=== PATIENT | male | born 1940 | race Caucasian/White ===

== ENCOUNTER → 2023-08-24 08:26 | Outpatient (REF) | payer MEDICARE, OTHER, SELFPAY ==
[2023-08-24 08:52] LABS: % Basophils 0.8 % (0-2); % Eosinophils 3.1 % (0-6); % Immature Granulocytes 0.5 % (0-0.5); % Lymphocytes 16.1 % (20.5-51.1); % Monocytes 13.1 % (1.7-9.3); % Neutrophils 66.4 % (42.2-75.2); Absolute Basophils 0.1 10^3/uL (0-0.2); Absolute Eosinophils 0.4 10^3/uL (0-0.7); Absolute Immature Granulocytes 0.1 10^3/uL (0-0.05); Absolute Lymphocytes 1.8 10^3/uL (1.2-3.4); Absolute Monocytes 1.5 10^3/uL (0.1-0.6); Absolute Neutrophils 7.6 10^3/uL (1.4-6.5); Hematocrit 30.8 % (39.0-52.0); Hemoglobin 10.4 g/dL (13.0-18.0); Mean Corp Hgb Conc. 33.8 g/dL (33.0-37.0); Mean Corpuscular Hgb 35.6 pg (27.0-31.0); Mean Corpuscular Volume 105.5 fL (80.0-94.0); Nucleated Red Blood Cells % 0 % (-); Platelet Count 224 10^3/uL (130-400); Red Blood Cell Count 2.92 10^6/uL (4.70-6.10); Red Cell Dist. Width 17.4 % (11.5-14.5); White Blood Cell Count 11.4 10^3/uL (4.8-10.8)
[2023-08-24 09:20] LABS: ALT (SGPT) 25 U/L (0-50); AST (SGOT) 24 U/L (17-59); Albumin 3.5 g/dl (3.5-5.0); Alkaline Phosphatase 245 U/L (38-126); Blood Urea Nitrogen 14 mg/dl (9-20); Calcium 9.1 mg/dl (8.4-10.2); Carbon Dioxide 30 mmol/L (22-30); Chloride 103 mmol/L (98-107); Glucose 137 mg/dl (70-99); Potassium 3.9 mmol/L (3.5-5.1); Sodium 139 mmol/L (135-145); Total Bilirubin 0.7 mg/dl (0.2-1.3); Total Protein 6.1 g/dl (6.3-8.2); eGFR > 60.00
== END ==
LOC: REG 08:26
PROVIDERS: ATTENDING PHYSICIAN Internal Medicine Hematology & Oncology; FAMILY PHYSICIAN Internal Medicine
DX: C25.2 Malignant neoplasm of tail of pancreas (principal)
CPT/HCPCS: 36415; 80053; 85025

== ENCOUNTER → 2023-09-02 08:05 | Outpatient (REF) | payer MEDICARE, OTHER, SELFPAY ==
[2023-09-02 08:23] LABS: % Basophils 0.7 % (0-2); % Eosinophils 1.9 % (0-6); % Immature Granulocytes 0.5 % (0-0.5); % Lymphocytes 24.3 % (20.5-51.1); % Monocytes 13.5 % (1.7-9.3); % Neutrophils 59.1 % (42.2-75.2); Absolute Basophils 0.1 10^3/uL (0-0.2); Absolute Eosinophils 0.2 10^3/uL (0-0.7); Absolute Immature Granulocytes 0.1 10^3/uL (0-0.05); Absolute Lymphocytes 2.4 10^3/uL (1.2-3.4); Absolute Monocytes 1.3 10^3/uL (0.1-0.6); Absolute Neutrophils 5.8 10^3/uL (1.4-6.5); Hematocrit 31.4 % (39.0-52.0); Hemoglobin 10.5 g/dL (13.0-18.0); Mean Corp Hgb Conc. 33.4 g/dL (33.0-37.0); Mean Corpuscular Hgb 34.4 pg (27.0-31.0); Mean Platelet Volume 9.9 fL (7.4-10.4); Nucleated Red Blood Cells % 0 % (-); Platelet Count 347 10^3/uL (130-400); Red Blood Cell Count 3.05 10^6/uL (4.70-6.10); Red Cell Dist. Width 16.7 % (11.5-14.5); White Blood Cell Count 9.9 10^3/uL (4.8-10.8)
[2023-09-02 09:15] LABS: ALT (SGPT) 22 U/L (0-50); AST (SGOT) 35 U/L (17-59); Albumin 3.5 g/dl (3.5-5.0); Alkaline Phosphatase 228 U/L (38-126); Blood Urea Nitrogen 12 mg/dl (9-20); Carbon Dioxide 26 mmol/L (22-30); Chloride 106 mmol/L (98-107); Glucose 131 mg/dl (70-99); Potassium 4.6 mmol/L (3.5-5.1); Sodium 137 mmol/L (135-145); Total Bilirubin 0.7 mg/dl (0.2-1.3); Total Protein 6.2 g/dl (6.3-8.2); eGFR > 60.00
== END ==
LOC: REG 08:05
PROVIDERS: ATTENDING PHYSICIAN Internal Medicine Hematology & Oncology
DX: C25.2 Malignant neoplasm of tail of pancreas (principal)
CPT/HCPCS: 36415; 80053; 85025

== ENCOUNTER → 2023-09-16 09:29 | Outpatient (REF) | payer MEDICARE, OTHER, SELFPAY ==
[2023-09-16 10:18] LABS: % Basophils 0.6 % (0-2); % Eosinophils 0.8 % (0-6); % Immature Granulocytes 4.5 % (0-0.5); % Lymphocytes 12.7 % (20.5-51.1); % Monocytes 15.4 % (1.7-9.3); Absolute Basophils 0.2 10^3/uL (0-0.2); Absolute Eosinophils 0.2 10^3/uL (0-0.7); Absolute Immature Granulocytes 1.3 10^3/uL (0-0.05); Absolute Lymphocytes 3.7 10^3/uL (1.2-3.4); Absolute Monocytes 4.5 10^3/uL (0.1-0.6); Absolute Neutrophils 19.4 10^3/uL (1.4-6.5); Hematocrit 30.2 % (39.0-52.0); Hemoglobin 10.3 g/dL (13.0-18.0); Mean Corp Hgb Conc. 34.1 g/dL (33.0-37.0); Mean Corpuscular Hgb 35.3 pg (27.0-31.0); Mean Corpuscular Volume 103.4 fL (80.0-94.0); Mean Platelet Volume 11.9 fL (7.4-10.4); Nucleated Red Blood Cells % 0.7 % (-); Platelet Count 185 10^3/uL (130-400); Red Blood Cell Count 2.92 10^6/uL (4.70-6.10); Red Cell Dist. Width 17.3 % (11.5-14.5); White Blood Cell Count 29.4 10^3/uL (4.8-10.8)
[2023-09-16 10:55] LABS: ALT (SGPT) 23 U/L (0-50); AST (SGOT) 35 U/L (17-59); Albumin 3.9 g/dl (3.5-5.0); Alkaline Phosphatase 284 U/L (38-126); Blood Urea Nitrogen 8 mg/dl (9-20); Calcium 9.3 mg/dl (8.4-10.2); Carbon Dioxide 29 mmol/L (22-30); Chloride 103 mmol/L (98-107); Glucose 103 mg/dl (70-99); Potassium 4.3 mmol/L (3.5-5.1); Sodium 140 mmol/L (135-145); Total Bilirubin 0.3 mg/dl (0.2-1.3); Total Protein 6.7 g/dl (6.3-8.2); eGFR > 60.00
== END ==
LOC: REG 09:29
PROVIDERS: ATTENDING PHYSICIAN Internal Medicine Hematology & Oncology; FAMILY PHYSICIAN Internal Medicine
DX: C25.2 Malignant neoplasm of tail of pancreas (principal)
CPT/HCPCS: 36415; 80053; 85025

== ENCOUNTER → 2023-09-19 15:56 | Outpatient (REF) | payer MEDICARE, OTHER, SELFPAY ==
[2023-09-22 12:25] LABS: CA 19-9 22 U/mL (<=35)
== END ==
LOC: OIDL 15:56
PROVIDERS: ATTENDING PHYSICIAN Internal Medicine Hematology & Oncology
DX: C25.2 Malignant neoplasm of tail of pancreas (principal)
CPT/HCPCS: 86301

== ENCOUNTER → 2023-10-15 12:47 | Outpatient (REF) | payer MEDICARE, OTHER, SELFPAY | LOC: RAD 12:47 | PROVIDERS: ATTENDING PHYSICIAN Internal Medicine Hematology & Oncology; FAMILY PHYSICIAN Internal Medicine | DX: C25.2 Malignant neoplasm of tail of pancreas (principal); R53.83 Other fatigue | CPT/HCPCS: 71260; 74177; Q9967 ==

== ENCOUNTER → 2024-01-07 09:15 | Outpatient (REF) | payer MEDICARE, OTHER, SELFPAY ==
[2024-01-07 09:52] LABS: % Basophils 0.6 % (0-2); % Eosinophils 7.9 % (0-6); % Immature Granulocytes 0.2 % (0-0.5); % Lymphocytes 22.7 % (20.5-51.1); % Neutrophils 55.6 % (42.2-75.2); Absolute Basophils 0.1 10^3/uL (0-0.2); Absolute Eosinophils 0.6 10^3/uL (0-0.7); Absolute Lymphocytes 1.8 10^3/uL (1.2-3.4); Absolute Monocytes 1.1 10^3/uL (0.1-0.6); Absolute Neutrophils 4.5 10^3/uL (1.4-6.5); Hematocrit 33.9 % (39.0-52.0); Mean Corp Hgb Conc. 32.4 g/dL (33.0-37.0); Mean Corpuscular Hgb 32.4 pg (27.0-31.0); Mean Platelet Volume 9.8 fL (7.4-10.4); Nucleated Red Blood Cells % 0 % (-); Platelet Count 360 10^3/uL (130-400); Red Blood Cell Count 3.39 10^6/uL (4.70-6.10); Red Cell Dist. Width 12.8 % (11.5-14.5); White Blood Cell Count 8.1 10^3/uL (4.8-10.8)
[2024-01-07 10:26] LABS: ALT (SGPT) 15 U/L (0-50); AST (SGOT) 28 U/L (17-59); Albumin 4.2 g/dl (3.5-5.0); Alkaline Phosphatase 157 U/L (38-126); Blood Urea Nitrogen 18 mg/dl (9-20); Calcium 9.7 mg/dl (8.4-10.2); Carbon Dioxide 26 mmol/L (22-30); Chloride 106 mmol/L (98-107); Glucose 144 mg/dl (70-99); Potassium 4.7 mmol/L (3.5-5.1); Sodium 141 mmol/L (135-145); Total Bilirubin 0.7 mg/dl (0.2-1.3); Total Protein 7.2 g/dl (6.3-8.2); eGFR > 60.00
[2024-01-08 16:52] LABS: CA 19-9 162 U/mL (<=35)
== END ==
LOC: REG 09:15
PROVIDERS: ATTENDING PHYSICIAN Internal Medicine Hematology & Oncology; FAMILY PHYSICIAN Internal Medicine
DX: C25.2 Malignant neoplasm of tail of pancreas (principal); R53.83 Other fatigue
CPT/HCPCS: 36415; 80053; 85025; 86301

== ENCOUNTER → 2024-01-13 08:15 | Outpatient (REF) | payer MEDICARE, OTHER, SELFPAY | LOC: RAD 08:15 | PROVIDERS: ATTENDING PHYSICIAN Internal Medicine Hematology & Oncology; FAMILY PHYSICIAN Internal Medicine | DX: C25.2 Malignant neoplasm of tail of pancreas (principal); R53.83 Other fatigue | CPT/HCPCS: 71260; 74177; Q9967 ==

== ENCOUNTER 2024-02-07 13:20 | Inpatient (IN) | payer MEDICARE, OTHER, SELFPAY ==
[2024-02-07] VITALS (8 sets, daily range): BP systolic 109–143; BP diastolic 47–73
--- NOTE | 2024-02-07 07:15 | ED.GENMED ---
History of Present Illness
General
Chief Complaint: Abdominal Pain
Source: patient
Exam Limitations: none
Time Seen by Provider: 02/07/24 07:14
Nursing documentation reviewed up to this point in time: agreed with
History of Present Illness
History of Present Illness:
83-year-old male with history of HLD, pancreatic cancer dx 12/2022 with pancreatic tail, last chemotherapy 09/13/[address] [facility] [address] Lopez presents stating for past 2 weeks had pain across mid abdomen, worse past 2 days, last night 'terrible
pain.' Now pain /10. Took Zofran and Pepcid w no relief. Denies vomiting, diarrhea, constipation. Having usual soft BM's last one 2 days ago. Denies CP, SOB. Denies fever/chills.
Saw Dr. Lopez 4 days ago and 'my cancer levels were up (CA19 22 in September and now 162). Dr. Lopez wants to 'observe' and pt is to have upper endoscopy w Dr. He but first available is Nov and they are in process of trying to get that moved up.
Is on day 12 of Amoxicillin for tooth infection (in process of getting caps) Tooth infection is improved.
Past History
Past History
ED Past Medical History: Cancer (Pancreatic), HTN, Hypercholesterolemia and Hypothyroidism
ED Past Surgical History: Other (Pancreatic tail resection)
Social History
Tobacco: Non-smoker
Alcohol: None
Personal:
Living: with family
Employment: Retired
Review of Systems
Review of Systems
Allergies reviewed?: Yes
All Other Systems: ROS reviewed and negative except as documented in HPI and ROS
Constitutional: Denies fever or chills
Respiratory: Denies trouble breathing
Cardiac: Denies chest pain
ABD/GI: Reports abdominal pain and nausea; Denies vomiting, diarrhea, constipated, bloody stools or black stools
: Denies dysuria or difficulty voiding
Musculoskeletal: Reports no symptoms
Skin: Reports no symptoms
Neurological: Reports no symptoms
Phy Exam
Physical Exam
Physical Exam:
GENERAL: No acute distress. A&Ox3. Very pleasant gentleman
CONSTITUTIONAL: Afebrile.
EYES: clear, conjunctivae normal
ENMT: moist mucus membranes, Pharynx nl
RESPIRATORY: Regular respirations, nonlabored, lungs clear.
CARDIOVASCULAR: Regular rate and rhythm, no murmurs, no rubs.
GI: Soft, tender generally, nondistended, normal BS
MUSCULOSKELETAL: Moves with ease. Well perfused.
SKIN: Warm, dry, pale. Port upper right chest wall
PSYCH: Normal mood and affect. Well kept, interactive and appropriate
NEUROLOGIC: Awake, alert and oriented. No focal neurological deficits
Course
Orders/Labs/Results
Orders:
Orders
02/07/24 Breakfast
NPO
Allow oral meds: No
Allow clear liquids: Sips of Clears
NPO with Ice Chips: Yes
02/07/24 07:33
CT Abd/pel W Iv And Oral Contr Urgent
Comment:
Reason For Exam: gen abd pain, hx pancreatic ca w resection tail
Iohexol [Omnipaque] See Protocol PO NOW STA
02/07/24 07:34
0.9% Sodium Chloride 1000 ml [Nss] 1,000 ml IV BOLUS
Morphine Sulfate 2 mg IV NOW STA
Ondansetron Injectable [Zofran] 4 mg IV NOW STA
02/07/24 07:54
Complete Blood Count/With Diff Urgent
Comprehensive Metabolic Panel Urgent
Lipase Urgent
02/07/24 11:39
Morphine Sulfate 2 mg IV NOW STA
Ondansetron Injectable [Zofran] 4 mg IV NOW STA
02/07/24 13:08
Admit/Transfer Patient As Directed
Co-Sign Provider:
Level of Care: Inpatient admission
Assign to:: Medical/Surgical
Physician / Group: Sheu
Diagnosis: Small Bowel Obstruction
Reason for Hospitalization: NPO/IVFs, Surgical consult
Expected length of stay greater than two midnights?: Yes
ELOS- Estimated Length of Stay in days: 3
I certify the patient meets the requirements for IP care: Yes
SURGICAL CONSULT Routine
Consulting Provider: Lavell Cantrell
Was physician already notified: Yes
02/07/24 13:09
Code Status As Directed
Resuscitation Status: Do not resuscitate
Reached after discussion with pt or family/Healthcare POA: Yes
DNR Bracelet Application ONCE
PRN Pain Medication Management As Directed
May give lesser potent ordered pain med per pt: Yes
preference::
Protocol:: Medication orders for pain may be administered in a
manner that supports deferring to patient preference
when the pt is:
- Requesting an ordered lesser potent pain medication.
Least to most potent pain medications are defined
as: acetaminophen < NSAID < tramadol < opioids
(morphine, oxycodone, hydromorphone).
- Requesting a lesser dose of the same medication IF
ORDERED.
- Requesting a less intrusive route of administration
if both routes are prescribed by the provider (PO <
IV).
02/07/24 15:03
0.9% Sodium Chloride 1000 ml [Nss] 1,000 ml IV 80 mls/hr
Acetaminophen 1000MG/100Ml [Ofirmev] 1,000 mg in 100 ml IV Q6HPRN
Acetaminophen IV Indication:: Ileus/Delayed Bowel Func.
Dextrose 50%-Water [Dextrose 50% Syringe] 12.5 grams IV [id number] PRN
Glucagon [GlucaGen] 1 mg IM PRN PRN
Morphine Sulfate 2 mg IV Q4HPRN PRN
Ondansetron Injectable [Zofran] 4 mg IV Q6HPRN PRN
02/07/24 15:03
Activity As Directed
Activity Level: Out of Bed-Early Mobility
With Assistance
Bedside Glucose Monitoring As Directed
Frequency: AC&HS
Additional Instructions:: Change to q6h if pt on TPN, tube feeding or not eating
I&O [Intake/ Output] As Directed
Frequency: q12h
Vital Signs As Directed
Frequency: Per unit guidelines
Weight As Directed
Frequency: Daily
DX Deep Vein Thrombosis Video Routine
02/07/24 16:30
Insulin Aspart Corrective Low [Novolog Flexpen-Low Resistance] See Protocol SC AC
02/07/24 18:00
Enoxaparin Sodium [Lovenox] 40 mg SC QPM
02/08/24 06:00
Basic Metabolic Panel IN AM
Complete Blood Count/No Diff IN AM
Glycohemoglobin (HgbA1c) IN AM
Magnesium IN AM
TSH Reflex To Free T4 IN AM
CR Abdomen - 1 View IN AM
Comment:
Reason For Exam: abd pain; follow-up oral contrast from CT scan
Abnormal Lab Results
02/07/24
07:54
WBC 12.3 H 10^3/uL
(4.8-10.8)
RBC 3.91 L 10^6/uL
(4.70-6.10)
Hgb 12.7 L g/dL
(13.0-18.0)
Hct 37.7 L %
(39.0-52.0)
MCV 96.4 H fL
(80.0-94.0)
MCH 32.5 H pg
(27.0-31.0)
Plt Count 434 H 10^3/uL
(130-400)
Absolute Neuts (auto) 8.8 H 10^3/uL
(1.4-6.5)
Absolute Monos (auto) 1.1 H 10^3/uL
(0.1-0.6)
Lymphocytes % 14.2 L %
(20.5-51.1)
Glucose 231 H mg/dl
(70-99)
Alkaline Phosphatase 174 H U/L
(38-126)
02/07/24 07:54
02/07/24 07:54
Vital Signs
Initial and Last Documented VS:
Initial Vital Signs
Temp Pulse Resp BP Pulse Ox
98.2 F 72 16 142/73 99
02/07/24 06:32 02/07/24 06:32 02/07/24 06:32 02/07/24 06:32 02/07/24 06:32
Last Documented Vital Signs
Temp Pulse Resp BP Pulse Ox
98.2 F 52 12 109/47 98
02/07/24 06:32 02/07/24 14:45 02/07/24 14:45 02/07/24 14:26 02/07/24 14:45
MDM/Problems Addressed
Differential Diagnosis Includes:
metastatic disease, obstruction, GI upset from Amoxicillin
MDM/Problems Addressed:
83-year-old male with history of HLD, pancreatic cancer dx 12/2022 with pancreatic tail, last chemotherapy 09/13/[address] [facility] [address] Lopez presents stating for past 2 weeks had pain across mid abdomen, worse past 2 days, last night 'terrible
pain.' Now pain 9/10. Took Zofran and Pepcid w no relief. Denies vomiting, diarrhea, constipation. Having usual soft BM's last one 2 days ago. Denies CP, SOB. Denies fever/chills.
Saw Dr. Lopez 4 days ago and 'my cancer levels were up (CA19 22 in September and now 162). Dr. Lopez wants to 'observe' and pt is to have upper endoscopy w Dr. He but first available is Nov and they are in process of trying to get that moved up.
Is on day 12 of Amoxicillin for tooth infection (in process of getting caps) Tooth infection is improved.
NAD, Afebrile
8:00 AM
CBC: WBC 12.3
CMP: BS 231 (most likely r/t stress reaction) otherwise no clinically significant abnormality
Lipase WNL
11:15 AM:
CAT scan abdomen pelvis with p.o. and IV contrast: Radiology report read: IMPRESSION:
Small bowel obstruction with transition point in the mid abdomen posterior to the umbilicus.
Postoperative changes of distal pancreatectomy and splenectomy which are not cynically changed in appearance from prior.
Mildly distended urinary bladder.
In to reevaluate patient. Stable. Discussed CT results and need for hospitalization.
He states he had good pain relief after the morphine, he states pain is coming back and would like more pain medicine. Ordered.
Hospitalist notified of admission.
*Critical Care Note
Total Time (30-74mins, 75-104mins- exclusive of procedures): Not Applicable
ED Attending Note
-
Portions of this chart may have been created with voice recognition software.� Occasional wrong word or��sound alike� substitutions may have occurred due to the inherent limitations of voice recognition software.
Discharge Plan
Departure
Patient Disposition: Admit
Date of Disposition: 02/07/24
Time of Disposition: 11:28
Admit to: Med/Surg
Presentation/result/management discussed w/ accepting MD/DO: Hospitalist
Condition: Fair
Discharge Problem:
Small bowel obstruction
Interventions
Interventions:
*Risk Screen - Suicide Last Done: 02/07/24 08:00
*General Assessment Last Done: 02/07/24 06:32
*Neglect/Abuse Screening Last Done: 02/07/24 15:00
ED- Fall Risk Assessment Last Done: 02/07/24 08:00
*ED COVID-19 Vaccine History Last Done: 02/07/24 08:00
*Nursing Disposition Last Done: 02/07/24 15:00
ZP-[id number]-[id number] Assessment Last Done: 02/07/24 08:00
Discharge Date and Time
Discharge Date/Time: 02/07/24 15:01
[2024-02-07] MEDS: NSS 1000 IV ×2 (07:55→15:50)
[2024-02-07] MEDS: ZOFRAN 4 MG IV ×3 (08:05→17:28)
[2024-02-07] MEDS: OMNIPAQUE 50 ML PO (08:06)
[2024-02-07] MEDS: MORPHINE SULFATE 2 MG IV ×4 (08:06→21:42)
[2024-02-07 08:15] LABS: % Basophils 0.4 % (0-2); % Eosinophils 4.3 % (0-6); % Immature Granulocytes 0.2 % (0-0.5); % Lymphocytes 14.2 % (20.5-51.1); % Monocytes 9.3 % (1.7-9.3); % Neutrophils 71.6 % (42.2-75.2); ALT (SGPT) 17 U/L (0-50); AST (SGOT) 27 U/L (17-59); Absolute Basophils 0.1 10^3/uL (0-0.2); Absolute Eosinophils 0.5 10^3/uL (0-0.7); Absolute Lymphocytes 1.7 10^3/uL (1.2-3.4); Absolute Monocytes 1.1 10^3/uL (0.1-0.6); Absolute Neutrophils 8.8 10^3/uL (1.4-6.5); Albumin 4.3 g/dl (3.5-5.0); Alkaline Phosphatase 174 U/L (38-126); Blood Urea Nitrogen 17 mg/dl (9-20); Carbon Dioxide 29 mmol/L (22-30); Chloride 101 mmol/L (98-107); Glucose 231 mg/dl (70-99); Hematocrit 37.7 % (39.0-52.0); Hemoglobin 12.7 g/dL (13.0-18.0); Lipase 75 U/L (23-300); Mean Corp Hgb Conc. 33.7 g/dL (33.0-37.0); Mean Corpuscular Hgb 32.5 pg (27.0-31.0); Mean Corpuscular Volume 96.4 fL (80.0-94.0); Mean Platelet Volume 9.4 fL (7.4-10.4); Nucleated Red Blood Cells % 0 % (-); Platelet Count 434 10^3/uL (130-400); Potassium 4.9 mmol/L (3.5-5.1); Red Blood Cell Count 3.91 10^6/uL (4.70-6.10); Sodium 137 mmol/L (135-145); Total Bilirubin 0.8 mg/dl (0.2-1.3); Total Protein 7.4 g/dl (6.3-8.2); White Blood Cell Count 12.3 10^3/uL (4.8-10.8); eGFR > 60.00
--- NOTE | 2024-02-07 12:36 | HPS.HSE ---
Addendum entered and electronically signed by Ottoniel Payne MD 02/07/24 17:21:
I saw and examined the patient.
The VEIN ACCESS TECHNICIAN or PA's note was reviewed and I agree with the note.
Comment:
83M DM HLD Hypothyroidism pancreatic Ca s/p pancreatic Tail resection Splenectomy p/w progressive abd pain constipation nausea last bowel movement [address] concerning for SBO. Patient comfortable pain well controlled after prn antinausea and
mpain medications given in ED. VSS
Physical Exam
General: No pallor, cyanosis, or jaundice.
HEENT: Throat clear. PERRLA Normocephalic atraumatic
NECK: Supple. No JVD Carotid Bruits
RESPIRATORY: Lungs clear to auscultation. No crackles wheezes stridor
CVS: S1, S2 normal. RRR. No murmur, rub or gallop.
ABDOMEN: Soft, non-tender. No distension. BS+/normal.
EXTREMITIES: No peripheral cyanosis or edema.
S[employer] HELPER: AOx3. 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
#SBO
#Diabetes
#Hyperlipidemia
#Hypothyroidism
Strict n.p.o.
IV fluid support
Pain medication
As needed antiemetics
Surgery eval appreciated
Sliding scale follow-up A1c
Original Note:
Family Physician
-
Family Physician: Mayito Silverio
Chief Complaint
-
Abdominal Pain
History of Present Illness
Patient is an 83 y/o male with a PMH of pancreatic cancer s/p pancreatic tail resection and splenectomy who reports to the ED for abdominal pain. He states the pain started about 2 weeks ago and has progressively worsened especially the last 2 days.
He describes the pain as a pressure that rates an 8/10. He denies taking Tylenol or Advil. He admits to abdominal bloating and nausea but denies vomiting. He tried taking Pepcid to no relief. He reports his last bowel movement was 2 days ago, which
is normal for him, but does states his bowel movements have been on the looser side. He admits to passing flatus. He denies diarrhea, chest pain, shortness of breath, fever, chills, and edema.
Medical History
Past Medical History
Past Medical History: Reports Other
Additional Past Medical History:
Diabetes Mellitus
Hyperlipidemia
Hypothyroidism
Pancreatic Cancer s/p Resection and Chemotherapy
Past Surgical History: Reports Other
Additional Past Surgical History:
Pancreatic Tail Resection
Splenectomy
Social History
Tobacco: Non-smoker
Alcohol: None
Family History
Family History: Not pertinent
Allergies / Home Medications
Allergies reflects when Allergies were last updated in [facility].
Home Medications with original date entered in [facility]
Allergy/Medication List:
Allergies
Allergy/AdvReac Type Severity Reaction Status Date / Time
No Known Allergies Allergy Verified 03/20/23 21:46
Home Medications
atorvastatin 40 mg tablet 40 mg PO QPM 01/07/23
finasteride 5 mg tablet 5 mg PO DAILY 01/07/23
latanoprost 0.005 % eye drops 1 drp BOTH EYES HS 01/07/23
levothyroxine 50 mcg tablet 50 mcg PO DAILY 01/07/23
docusate sodium 100 mg capsule (Colace) 100 mg PO Q48H 02/07/24
dorzolamide 22.3 mg-timolol 6.8 mg/mL eye drops (Cosopt) 1 drp BOTH EYES BID 02/07/24
famotidine 20 mg tablet (Pepcid) 20 mg PO DAILYPRN PRN gerd 02/07/24
metformin 500 mg tablet,extended release 24 hr 500 mg PO QPM 02/07/24
Review of Systems
-
A 12 point ROS was completed and negative except as noted: Yes
Constitutional: Denies Fever or Chills
Respiratory: Denies Cough or Trouble Breathing
Cardiac: Denies Chest Pain or Palpitations
Abdomen/GI: Reports See HPI
Physical Exam
Vital Signs
Vital Signs
Temp Pulse Resp BP Pulse Ox
98.2 F 54 13 122/57 98
02/07/24 06:32 02/07/24 12:33 02/07/24 12:33 02/07/24 12:28 02/07/24 12:33
Physical Exam
General: Comfortable and Conversant
HEENT: Anicteric and Moist mucous membranes
Respiratory: Clear and Non Labored Respirations
Cardiac: S1/S2 and Regular Rhythm
GI: Soft, Tender (Epigastric region without rebound or guarding), Distended (Mildly particularly in the central abdomen) and Other (Hypoactive bowels with occasional high pitch tinkling)
Rectal: Deferred by Provider
Musculoskeletal: No Clubbing, No Cyanosis and No Edema
Skin: Warm and Dry
Neuro: Awake, Alert, Oriented and Nonfocal/grossly intact
Psych: Calm
Laboratory Results
-
02/07/24 07:54
02/07/24 07:54
Laboratory Results
Total Bilirubin 0.8 mg/dl (0.2-1.3) 02/07/24 07:54
AST 27 U/L (17-59) 02/07/24 07:54
ALT 17 U/L (0-50) 02/07/24 07:54
Alkaline Phosphatase 174 U/L (38-126) H 02/07/24 07:54
Lipase 75 U/L (23-300) 02/07/24 07:54
CT Abd/Pelvis: Small bowel obstruction with transition point in the mid abdomen posterior to the umbilicus.
Data Reviewed
-
CT Scan: Report Reviewed by me
Lab Data: Labs Reviewed by me
Old Records: Reviewed
Impression/Plan
-
Small Bowel Obstruction
-Consult General Surgery
-Continue NPO/IVFs with low threshold to place NGT for worsening pain or vomiting
-Check Abd X-Ray in AM
Diabetes Mellitus
-Hold metformin
-Monitor sugars and continue coverage insulin
Hyperlipidemia
-Hold atorvastatin
Hypothyroidism
-Hold levothyroxine - If unable to resume in a few days then consider IV
Pancreatic Cancer s/p Resection and Chemotherapy
-CA 19-9 trending upwards
-Due for EUS later this year
DVT proph: Lovenox
Code Status: DNR
--- NOTE | 2024-02-07 16:21 | CON.GS ---
Consultation
-
Performing Provider: Óscar
Reason for Consultation: SBO
Medical History
-
Chief Complaint: abd distention/pain
History of Present Illness:
Patient is an 83-year-old male with a known history of pancreatic cancer status post distal pancreatectomy splenectomy January 2023 at [facility]. He subsequently underwent adjuvant chemotherapy which finished this past September. He is under the care of
Dr. Lopez with [facility]. He has been undergoing surveillance imaging which was unremarkable. However most recent CA 19-9 elevated at 162 on 01/07/2024 in comparison to prior 22 09/19/2023. Patient is aware of the recent elevation
in his tumor markers.
Patient states that he recovered well from his recent chemotherapy. Since September he has gained about 20 pounds with good appetite and nutritional tolerance. Over the past 2 weeks however he has been developing progressive abdominal discomfort and
distention which acutely deteriorated overnight to the point of having pain prompting emergency department evaluation and some mild nausea. There has been no vomiting. His bowels are moving regularly but he has not moved his bowels in 2 days now.
His stools are typically loose since having undergone distal pancreatectomy. No previous history of bowel obstructions.
Patient currently states that his abdominal pain/discomfort is well-controlled since getting 2 doses of morphine in the emergency department. His last dose was at 11:30 AM. He has not had any further nausea since around that time either as well.
He was able to tolerate the oral contrast for his CT imaging study and has not vomited.
Past Medical History
Past Medical History: Other (Pancreatic cancer, DM, hyperlipidemia, hypothyroidism)
Past Surgical History: Other (Laparotomy with distal pancreatectomy/splenectomy. Subsequent early postop relaparotomy for what sounds like was evacuation of a hematoma. Both of these surgeries were in January 2023.)
Social History
Tobacco: Non-Smoker
Alcohol: None
Personal:
Living: With Family
Employment: Retired
Family History
Family History: Reviewed & Noncontributory
Allergies / Home Medications
Allergy/AdvReac Type Severity Reaction Status Date / Time
No Known Allergies Allergy Verified 03/20/23 21:46
�Medication �Instructions �Recorded �Confirmed �Type
atorvastatin 40 mg tablet 40 mg PO QPM 01/07/23 02/07/24 History
finasteride 5 mg tablet 5 mg PO DAILY 01/07/23 02/07/24 History
latanoprost 0.005 % eye drops 1 drp BOTH EYES HS 01/07/23 02/07/24 History
levothyroxine 50 mcg tablet 50 mcg PO DAILY 01/07/23 02/07/24 History
docusate sodium 100 mg capsule 100 mg PO Q48H 02/07/24 02/07/24 History
(Colace)
dorzolamide 22.3 mg-timolol 6.8 1 drp BOTH EYES BID 02/07/24 02/07/24 History
mg/mL eye drops (Cosopt)
famotidine 20 mg tablet (Pepcid) 20 mg PO DAILYPRN PRN gerd 02/07/24 02/07/24 History
metformin 500 mg tablet,extended 500 mg PO QPM 02/07/24 02/07/24 History
release 24 hr
Review of Systems
-
History Source: Patient
All other systems: Negative unless noted
A 10 point review of systems was completed, and was negative except as per HPI.
Physical Exam
Vital Signs
Temp Pulse Resp BP Pulse Ox
97.5 F 55 18 122/60 97
02/07/24 15:00 02/07/24 15:00 02/07/24 15:00 02/07/24 15:00 02/07/24 15:00
02/06/24 02/07/24 02/08/24
06:59 06:59 06:59
Actual Weight 66.5 kg
Lab Results
02/07/24 07:54
02/07/24 07:54
WBC 12.3 10^3/uL (4.8-10.8) H 02/07/24 07:54
Hgb 12.7 g/dL (13.0-18.0) L 02/07/24 07:54
Hct 37.7 % (39.0-52.0) L 02/07/24 07:54
Plt Count 434 10^3/uL (130-400) H 02/07/24 07:54
Abs Immat Gran (auto) 0.0 10^3/uL (0-0.05) 02/07/24 07:54
Neutrophils % 71.6 % (42.2-75.2) 02/07/24 07:54
Physical Exam
General: Well Developed, Well Nourished, No Apparent Distress and Comfortable
HEENT: Normocephalic, Anicteric and Moist Mucous Membranes
Respiratory: Non Labored Respirations
GI: Soft, Tender (Mild tenderness central and upper abdomen. No rebound, no rigidity, no guarding.), Distended (Moderately distended but still soft. Tympany on percussion throughout. No percussion tenderness.) and Other (Midline laparotomy
surgical scar. No hernias)
Skin: Warm
Neuro: AO x 3
Psych: Calm
Data Reviewed
-
CT Scan: Image Personally Visualized and interpreted, Report Reviewed by me and Discussed with Patient
Labs: Labs Reviewed by me
Assessment / Plan
-
Assessment: 83-year old male history of pancreatic cancer status post distal pancreatectomy splenectomy presenting with small bowel obstruction; partial versus early high-grade.
Potential causes of obstruction could either be secondary to adhesions or malignancy in light of recent elevation of CA 19-9.
Radiographic imaging personally reviewed and interpreted. Transition point in mid to distal small bowel in the lower central abdomen. No radiographic findings suggestive of closed-loop obstruction, volvulus, internal hernia or immediate bowel
compromise/threat.
Given clinical stability recommend initial course of medical management.
Plan: N.p.o. except ice chips for comfort
IV fluid hydration
Analgesics and antiemetics as needed
Follow-up abdominal x-ray tomorrow a.m. to evaluate for possible progression of today's CT imaging oral contrast
May hold on NG tube given adequate pain control, nausea control and abdomen not tensely distended. However if it is to develop intractable pain, nausea vomiting then would recommend NG tube placement which I discussed with patient.
Surgical treatment plan and impression reviewed with patient. Any of his concerns or questions were addressed. We will continue to follow thank you.
[2024-02-07 16:43] LABS: Glucose - Point of Care 137 mg/dl (70-99)
[2024-02-07] MEDS: LOVENOX 40 MG SC (17:28)
[2024-02-07 23:57] LABS: Glucose - Point of Care 138 mg/dl (70-99)
[2024-02-08] MEDS: NSS 1000 IV ×2 (05:38→18:10)
[2024-02-08 06:53] LABS: Glucose - Point of Care 119 mg/dl (70-99)
[2024-02-08 07:00] VITALS: BP 118/44
--- NOTE | 2024-02-08 07:38 | W.PN.HOSP.TC ---
Today's Communication/Plan
-
diet as per surgery
pain control
antiemetic
IVF
Assessment / Plan
Assessment / Plan
Physical Exam
General: No pallor, cyanosis, or jaundice.
HEENT: Throat clear. PERRLA Normocephalic atraumatic
NECK: Supple. No JVD Carotid Bruits
RESPIRATORY: Lungs clear to auscultation. No crackles wheezes stridor
CVS: S1, S2 normal. RRR. No murmur, rub or gallop.
ABDOMEN: Soft, non-tender. No distension. BS+/normal.
EXTREMITIES: No peripheral cyanosis or edema.
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
83M DM HLD Hypothyroidism pancreatic Ca s/p pancreatic Tail resection Splenectomy p/w progressive abd pain constipation nausea last bowel movement [address] concerning for SBO. Patient comfortable pain well controlled after prn antinausea and
mpain medications given in ED. VSS
Small Bowel Obstruction
-Consult General Surgery appreciated
-Continue NPO/IVFs with low threshold to place NGT for worsening pain or vomiting
-Abd X-Ray appreciated
Diabetes Mellitus
-Hold metformin
-Monitor sugars and continue coverage insulin
Hyperlipidemia
-Hold atorvastatin
Hypothyroidism
-Hold levothyroxine - If unable to resume in a few days then consider IV
Pancreatic Cancer s/p Resection and Chemotherapy
-CA 19-9 trending upwards
-Due for EUS later this year
Oncology eval requested concern malignant SBO
DVT proph: Lovenox
Code Status: DNR
I spent a total of 50 minutes with the patient or on the floor. More than 50% of this time involved counseling and coordination of care.
Anticipated Discharge: > 48 hours
Subjective/Interval History
-
Date of Service: February 08, 2024
No acute distress reports feeling well. Denies pain or nausea.
Objective Data
-
Labs:
Laboratory Results
02/08/24
06:00
WBC Pending
Hgb Pending
Hct Pending
Plt Count Pending
Sodium Pending
Potassium Pending
Chloride Pending
Carbon Dioxide Pending
BUN Pending
Creatinine Pending
Glucose Pending
Calcium Pending
Vital Signs:
Vital Signs
Temp Pulse Resp BP Pulse Ox
97.6 F 73 16 117/58 97
02/07/24 23:00 02/07/24 23:00 02/07/24 23:00 02/07/24 23:00 02/07/24 23:00
I&O
02/07/24 02/08/24 02/09/24
06:59 06:59 06:59
Intake Total 1800 / 1800 1400 / 1400
Balance 1800 / 1800 1400 / 1400
[2024-02-08 08:14] LABS: Glycohemoglobin (HgbA1c) 7.6 % (4.0-5.6)
[2024-02-08 10:20] LABS: Hematocrit 37.8 % (39.0-52.0); Hemoglobin 12.7 g/dL (13.0-18.0); Mean Corp Hgb Conc. 33.6 g/dL (33.0-37.0); Mean Corpuscular Hgb 33.3 pg (27.0-31.0); Mean Corpuscular Volume 99.2 fL (80.0-94.0); Platelet Count 424 10^3/uL (130-400); Red Blood Cell Count 3.81 10^6/uL (4.70-6.10); Red Cell Dist. Width 13.2 % (11.5-14.5); White Blood Cell Count 10.7 10^3/uL (4.8-10.8)
[2024-02-08 10:44] LABS: Blood Urea Nitrogen 15 mg/dl (9-20); Calcium 9.5 mg/dl (8.4-10.2); Carbon Dioxide 29 mmol/L (22-30); Chloride 102 mmol/L (98-107); Glucose 147 mg/dl (70-99); Magnesium 2.1 mg/dl (1.6-2.3); Potassium 4.5 mmol/L (3.5-5.1); Sodium 137 mmol/L (135-145); eGFR > 60.00
[2024-02-08 11:13] LABS: TSH Reflex To Free T4 2.94 uIU/ml (0.47-4.68)
--- NOTE | 2024-02-08 12:36 | W.PN.GS2 ---
Today's Communication / Plan
-
-- Sips of clears for comfort, IVF
-- Repeat X-ray in AM
-- Oncology consult
Assessment / Plan
-
Patient is an 83 yo M p/w pSBO secondary to adhesions versus more likely malignancy
The natural history and pathophysiology of bowel obstructions was reviewed. We have specifically discussed the potential for a malignant bowel obstruction. Signs of radiographic improvement with passage of contrast into the RIGHT colon and
clinical improvement with less pain and distension. That being said x-ray demonstrates persistently dilated SB loops. Plan for continued bowel rest with repeat abdominal x-ray in the morning. We discussed the potential need for surgical
intervention either during this hospitalization or as an outpatient as this issue is unlikely to resolve itself on its own. Will also need to review case with Oncology if there is any role for further medical treatment.
-- No plans for surgical intervention at this time
-- Sips of clears for comfort, IVF
-- Repeat X-ray in AM
-- Oncology consult
Subjective Data
-
Date of Service: February 08, 2024
Feels improved, less pain and distention. No nausea or vomiting. No flatus or BM.
Objective Data
-
Intake and Output
02/07/24 02/08/24 02/09/24
06:59 06:59 06:59
Intake Total 1800 / 1800 1400 / 1400
Balance 1800 / 1800 1400 / 1400
Intake:
Oral fluids 800 / 800 60 / 60
IV fluids (Total) 1000 / 1000 1320 / 1320
NSS 1000 / 1000
IV piggybacks / 20
Other:
Number of approximated MODERATE 2
amounts of urine
Vital Signs
Temp Pulse Resp BP Pulse Ox
97.3 F 66 17 118/44 98
02/08/24 07:00 02/08/24 07:00 02/08/24 07:00 02/08/24 07:00 02/08/24 07:00
Lab Results
02/08/24 08:43
02/08/24 08:43
Calcium 9.5 mg/dl (8.4-10.2) 02/08/24 08:43
Magnesium 2.1 mg/dl (1.6-2.3) 02/08/24 08:43
Total Bilirubin 0.8 mg/dl (0.2-1.3) 02/07/24 07:54
AST 27 U/L (17-59) 02/07/24 07:54
ALT 17 U/L (0-50) 02/07/24 07:54
Alkaline Phosphatase 174 U/L (38-126) H 02/07/24 07:54
Total Protein 7.4 g/dl (6.3-8.2) 02/07/24 07:54
Albumin 4.3 g/dl (3.5-5.0) 02/07/24 07:54
Physical Exam
-
Gen: NAD
Abd: soft, NT, mild/moderate distension, non-peritoneal, prior incision well healed
[2024-02-08 12:50] LABS: Glucose - Point of Care 128 mg/dl (70-99)
[2024-02-08 15:00] VITALS: BP 133/79
--- NOTE | 2024-02-08 15:16 | CM ---
Reviewed chart, met with patient to obtain information for assessment. Patient stated that he lives with his in a single, two story home. There is one step to enter. Patient described himself as independent with his ADLs, personal care,
dressing and bathing. He ambulates at times with a s.p cane. 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
He denied any DME but the cane.
Patient stated that he had VN services through, [facility].
He has never been to a SNF.
Patient has a prescription plan and uses, [facility] in [place] for all of his medication.
He has done outpatient therapy but no SNF.
Patient's PCP is, Dr. Durham
Plan: Patient feels that he will be able to return home when when sable for discharge with his ,,
[2024-02-08 17:40] LABS: Glucose - Point of Care 137 mg/dl (70-99)
[2024-02-08] MEDS: NSS IV (17:40)
[2024-02-08] MEDS: LOVENOX 40 MG SC (18:09)
[2024-02-08 23:00] VITALS: BP 121/66
[2024-02-08 23:53] LABS: Glucose - Point of Care 109 mg/dl (70-99)
[2024-02-09] MEDS: ZOFRAN 4 MG IV ×2 (02:08→16:19)
[2024-02-09] MEDS: NSS 1000 IV ×3 (02:08→21:59)
[2024-02-09] MEDS: MORPHINE SULFATE 2 MG IV ×2 (02:08→16:20)
[2024-02-09 06:03] LABS: Glucose - Point of Care 132 mg/dl (70-99)
--- NOTE | 2024-02-09 07:18 | W.PN.HOSP.TC ---
Today's Communication/Plan
-
diet as per surgery
resume home oral meds
cont control
antiemetic prn
Assessment / Plan
Assessment / Plan
Physical Exam
General: No pallor, cyanosis, or jaundice.
HEENT: Throat clear. PERRLA Normocephalic atraumatic
NECK: Supple. No JVD Carotid Bruits
RESPIRATORY: Lungs clear to auscultation. No crackles wheezes stridor
CVS: S1, S2 normal. RRR. No murmur, rub or gallop.
ABDOMEN: Soft, non-tender. No distension. BS+/normal.
EXTREMITIES: No peripheral cyanosis or edema.
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
83M DM HLD Hypothyroidism pancreatic Ca s/p pancreatic Tail resection Splenectomy p/w progressive abd pain constipation nausea last bowel movement [address] concerning for SBO. Patient comfortable pain well controlled after prn antinausea and
mpain medications given in ED. VSS
Small Bowel Obstruction
-Consult General Surgery appreciated diet advanced to Clear liquid
-Abd X-Rays appreciated
Diabetes Mellitus
-resume metformin
-Monitor sugars and continue coverage insulin
Hyperlipidemia
-resume atorvastatin
Hypothyroidism
-resume synthroid
Pancreatic Cancer s/p Resection and Chemotherapy
-CA 19-9 trending upwards
-Due for EUS later this year
Oncology eval appreciated
DVT proph: Lovenox
Code Status: DNR
I spent a total of 50 minutes with the patient or on the floor. More than 50% of this time involved counseling and coordination of care.
Anticipated Discharge: 24 - 48 hours
Subjective/Interval History
-
Date of Service: February 09, 2024
No acute distress. Reports feeling well.
Objective Data
-
Labs:
Laboratory Results
02/09/24
07:07
WBC Pending
Hgb Pending
Hct Pending
Plt Count Pending
Sodium Pending
Potassium Pending
Chloride Pending
Carbon Dioxide Pending
BUN Pending
Creatinine Pending
Glucose Pending
Calcium Pending
Vital Signs:
Vital Signs
Temp Pulse Resp BP Pulse Ox
97.7 F 74 18 121/66 98
02/08/24 23:00 02/08/24 23:00 02/08/24 23:00 02/08/24 23:00 02/08/24 23:00
I&O
02/08/24 02/09/24 02/10/24
06:59 06:59 06:59
Intake Total 1800 / 1800 3290 / 3290
Balance 1800 / 1800 3290 / 3290
[2024-02-09 07:39] VITALS: BP 140/74
--- NOTE | 2024-02-09 09:05 | W.PN.GS2 ---
Today's Communication / Plan
-
-- Clears, supplement shakes
-- Oncology consult
Assessment / Plan
-
Patient is an 83 yo M p/w pSBO secondary to adhesions versus more likely malignancy
The natural history and pathophysiology of bowel obstructions was reviewed. We have specifically discussed the potential for a malignant bowel obstruction. Signs of radiographic improvement with passage of contrast into the RIGHT colon and
clinical improvement with less pain and distension. That being said x-ray demonstrates persistently dilated SB loops. We discussed the potential need for surgical intervention either during this hospitalization or as an outpatient as this issue is
unlikely to resolve itself on its own. Will also need to review case with Oncology if there is any role for further medical treatment.
Trial of clears
-- Clears, supplement shakes
-- Oncology consult
Subjective Data
-
Date of Service: February 09, 2024
Tolerated fulls, does report some mild nausea overnight treated with antinausea medication. Reports passing flatus and stools. Afebrile.
Objective Data
-
Intake and Output
02/08/24 02/09/24 02/10/24
06:59 06:59 06:59
Intake Total 1800 / 1800 3290 / 3290
Balance 1800 / 1800 3290 / 3290
Intake:
Oral fluids 800 / 800 1950 / 1950
IV fluids (Total) 1000 / 1000 1320 / 1320
NSS 1000 / 1000
IV piggybacks 20 / 20
Other:
Number of approximated MODERATE 3
amounts of urine
How many times incontinent 3
MODERATE amount urine
Vital Signs
Temp Pulse Resp BP Pulse Ox
97.7 F 73 16 140/74 98
02/09/24 07:39 02/09/24 07:39 02/09/24 07:39 02/09/24 07:39 02/09/24 07:39
Calcium 9.5 mg/dl (8.4-10.2) 02/08/24 08:43
Magnesium 2.1 mg/dl (1.6-2.3) 02/08/24 08:43
Total Bilirubin 0.8 mg/dl (0.2-1.3) 02/07/24 07:54
AST 27 U/L (17-59) 02/07/24 07:54
ALT 17 U/L (0-50) 02/07/24 07:54
Alkaline Phosphatase 174 U/L (38-126) H 02/07/24 07:54
Total Protein 7.4 g/dl (6.3-8.2) 02/07/24 07:54
Albumin 4.3 g/dl (3.5-5.0) 02/07/24 07:54
Physical Exam
-
Gen: NAD
Abd: soft, NT/ND, non-peritoneal
[2024-02-09 09:08] LABS: Blood Urea Nitrogen 11 mg/dl (9-20); Calcium 8.8 mg/dl (8.4-10.2); Carbon Dioxide 27 mmol/L (22-30); Chloride 105 mmol/L (98-107); Glucose 133 mg/dl (70-99); Magnesium 1.9 mg/dl (1.6-2.3); Phosphorus 3.4 mg/dl (2.5-4.5); Potassium 4.9 mmol/L (3.5-5.1); Sodium 136 mmol/L (135-145); eGFR > 60.00
[2024-02-09 09:12] LABS: Hematocrit 32.8 % (39.0-52.0); Hemoglobin 11.2 g/dL (13.0-18.0); Mean Corp Hgb Conc. 34.1 g/dL (33.0-37.0); Mean Corpuscular Hgb 32.3 pg (27.0-31.0); Mean Corpuscular Volume 94.5 fL (80.0-94.0); Mean Platelet Volume 9.7 fL (7.4-10.4); Platelet Count 409 10^3/uL (130-400); Red Blood Cell Count 3.47 10^6/uL (4.70-6.10); Red Cell Dist. Width 13.1 % (11.5-14.5); White Blood Cell Count 9.9 10^3/uL (4.8-10.8)
--- NOTE | 2024-02-09 09:41 | CON.ONC ---
Impression
Impression
SBO
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
Previous 5-fluorouracil based chemotherapy unable to tolerate irinotecan
Hypothyroid
Hyperlipidemia
Glaucoma/cataracts
Small pulmonary nodules of unclear significance
Plan
Plan
SBO with transition may represent metastatic implant Clinically improvement clinically improving with conservative measures
Serologic concern for relapsed disease with rising CA 19 9
There is no measurable disease in the pancreatic bed
Pulmonary nodules too small to biopsy
Continue to evaluate for definitive evidence of measurable recurrence or pathologic confirmation
Advance diet as per surgical management
Additional chemotherapy would be palliative
Patient History
History of Present Illness
Patient is an 83 y/o male with a PMH of pancreatic cancer s/p pancreatic tail resection and splenectomy with abdominal pain and SBO. He completed adjuvant FOLFOX chemotherapy in September 2023. Recent assessment failed to document clear evidence of
vaginal recurrence however his CA 19-9 has been rising which raises concern that his SBO may be associated with recurrent disease. His symptoms of abdominal discomfort started about 2 weeks ago and has progressively worsened especially the last few
days. He describes the pain as a pressure that rates an 8/10. He denies taking Tylenol or Advil. He admits to abdominal bloating and nausea but denies vomiting. He tried taking Pepcid to no relief. He reports his last bowel movement prior to
admission was 2 days before, which is normal for him, but does states his bowel movements have been on the looser side. He admits to passing flatus. He denies diarrhea, chest pain, shortness of breath, fever, chills, and edema.
Past-Medical/Surgical History
Past Medical History
Diabetes Mellitus
Hyperlipidemia
Hypothyroidism
Pancreatic Cancer s/p Resection and Chemotherapy
Past Surgical History
Pancreatic Tail Resection
Splenectomy
Social History
Tobacco: Non-smoker
Alcohol: None
Family History
Family History: Not pertinent
Patient Medication
�Medication �Instructions �Recorded �Confirmed �Last Taken �Type
atorvastatin 40 mg tablet 40 mg PO QPM 01/07/23 02/07/24 02/06/24 History
finasteride 5 mg tablet 5 mg PO DAILY 01/07/23 02/07/24 02/06/24 History
latanoprost 0.005 % eye drops 1 drp BOTH EYES HS 01/07/23 02/07/24 02/06/24 History
levothyroxine 50 mcg tablet 50 mcg PO DAILY 01/07/23 02/07/24 02/06/24 History
docusate sodium 100 mg capsule 100 mg PO Q48H 02/07/24 02/07/24 Unknown History
(Colace)
dorzolamide 22.3 mg-timolol 6.8 1 drp BOTH EYES BID 02/07/24 02/07/24 02/06/24 History
mg/mL eye drops (Cosopt)
famotidine 20 mg tablet (Pepcid) 20 mg PO DAILYPRN PRN gerd 02/07/24 02/07/24 02/07/24 History
metformin 500 mg tablet,extended 500 mg PO QPM 02/07/24 02/07/24 02/06/24 History
release 24 hr
Active Medications
Generic Name Dose Route Start Last Admin
Trade Name Freq PRN Reason Stop Dose Admin
Dextrose 12.5 grams 02/07/24 15:03
Dextrose 50% (0.5 Grams/Ml) 50 Ml Syringe IV 03/06/24 15:02
[id number] PRN
hypoglycemia
Protocol
Dorzolamide/Timolol 1 drop 02/09/24 09:00
Dorzolamide/Timolol (Ophth Soln.) 10 Ml Bottle BOTH EYES 03/08/24 08:59
BID TEE
Enoxaparin Sodium 40 mg 02/07/24 18:00 02/08/24 18:09
Enoxaparin Sodium 40 Mg/0.4 Ml Syringe SC 03/06/24 17:59 40 mg
QPM TEE Administration
Glucagon 1 mg 02/07/24 15:03
Glucagon 1 Mg Vial IM 03/06/24 15:02
PRN PRN
hypoglycemia
Protocol
Sodium Chloride 1,000 mls @ 110 mls/hr 02/07/24 15:03 02/09/24 02:08
Nss IV 1,000 mls
.Q9H6M TEE Administration
Insulin Aspart 0 units 02/09/24 07:30 02/09/24 08:17
Insulin Aspart Low Resistance 300 Units/3 Ml Pen.Injctr SC 03/08/24 07:29 Not Given
AC TEE
Protocol
Latanoprost 1 drop 02/09/24 22:00
Latanoprost 0.005% (Ophthalmic Solution) 2.5 Ml Bottle BOTH EYES 03/08/24 21:59
HS TEE
Morphine Sulfate 2 mg 02/07/24 15:03 02/09/24 02:08
Morphine 2 Mg/Ml Syringe IV 02/21/24 15:02 2 mg
Q4HPRN PRN Administration
moderate/severe pain
Ondansetron HCl 4 mg 02/07/24 15:03 02/09/24 02:08
Ondansetron 4 Mg/2 Ml Vial IV 03/06/24 15:02 4 mg
Q6HPRN PRN Administration
NAUSEA/VOMITING
Sodium Chloride 0 flush 02/07/24 16:00
Sodium Chloride 0.9% (Flush) Syringe IV 03/06/24 15:59
PER PROTOCOL TEE
Physical Exam
-
Physical Exam
General: Comfortable and Conversant
HEENT: Anicteric and Moist mucous membranes
Respiratory: Clear and Non Labored Respirations
Cardiac: S1/S2 and Regular Rhythm
GI: Soft, Tender, Distended
Musculoskeletal No Clubbing, No Cyanosis and No Edema
Skin: Warm and Dry
Neuro: Awake, Alert, Oriented and Nonfocal/grossly intact
Psych: Calm
Labs
Lab Results
WBC 9.9 10^3/uL (4.8-10.8) 02/09/24 07:07
RBC 3.47 10^6/uL (4.70-6.10) L 02/09/24 07:07
Hgb 11.2 g/dL (13.0-18.0) L 02/09/24 07:07
Hct 32.8 % (39.0-52.0) L 02/09/24 07:07
MCV 94.5 fL (80.0-94.0) H 02/09/24 07:07
MCH 32.3 pg (27.0-31.0) H 02/09/24 07:07
MCHC 34.1 g/dL (33.0-37.0) 02/09/24 07:07
RDW 13.1 % (11.5-14.5) 02/09/24 07:07
Plt Count 409 10^3/uL (130-400) H 02/09/24 07:07
MPV 9.7 fL (7.4-10.4) 02/09/24 07:07
Abs Immat Gran (auto) 0.0 10^3/uL (0-0.05) 02/07/24 07:54
Absolute Neuts (auto) 8.8 10^3/uL (1.4-6.5) H 02/07/24 07:54
Absolute Lymphs (auto) 1.7 10^3/uL (1.2-3.4) 02/07/24 07:54
Absolute Monos (auto) 1.1 10^3/uL (0.1-0.6) H 02/07/24 07:54
Absolute Eos (auto) 0.5 10^3/uL (0-0.7) 02/07/24 07:54
Absolute Basos (auto) 0.1 10^3/uL (0-0.2) 02/07/24 07:54
Immature Gran % 0.2 % (0-0.5) 02/07/24 07:54
Neutrophils % 71.6 % (42.2-75.2) 02/07/24 07:54
Lymphocytes % 14.2 % (20.5-51.1) L 02/07/24 07:54
Monocytes % 9.3 % (1.7-9.3) 02/07/24 07:54
Eosinophils % 4.3 % (0-6) 02/07/24 07:54
Basophils % 0.4 % (0-2) 02/07/24 07:54
Creatinine 0.9 mg/dL (0.7-1.3) 02/09/24 07:07
Vital Signs
Vital Signs
Temp Pulse Resp BP Pulse Ox
97.7 F 73 16 140/74 98
02/09/24 07:39 02/09/24 07:39 02/09/24 07:39 02/09/24 07:39 02/09/24 07:39
[2024-02-09] MEDS: COSOPT EYE DROPS 1 DROP BOTH EYES ×2 (09:47→21:06)
[2024-02-09 10:57] LABS: Glucose - Point of Care 130 mg/dl (70-99)
[2024-02-09 15:18] VITALS: BP 125/65
[2024-02-09 17:13] LABS: Glucose - Point of Care 116 mg/dl (70-99)
[2024-02-09] MEDS: LIPITOR 40 MG PO (17:38)
[2024-02-09] MEDS: GLUCOPHAGE XR EXTENDED RELEASE 500 MG PO (17:38)
[2024-02-09] MEDS: LOVENOX 40 MG SC (17:38)
[2024-02-09] MEDS: XALATAN OPHTHALMIC SOLUTION 1 DROP BOTH EYES (21:06)
[2024-02-09 21:25] LABS: Glucose - Point of Care 140 mg/dl (70-99)
[2024-02-09 23:18] VITALS: BP 119/66
[2024-02-10] MEDS: MORPHINE SULFATE 2 MG IV ×2 (01:22→20:43)
[2024-02-10] MEDS: ZOFRAN 4 MG IV ×2 (01:22→20:43)
[2024-02-10] MEDS: SYNTHROID 50 MCG PO (06:03)
[2024-02-10 06:47] LABS: Hematocrit 31.8 % (39.0-52.0); Hemoglobin 10.9 g/dL (13.0-18.0); Mean Corp Hgb Conc. 34.3 g/dL (33.0-37.0); Mean Corpuscular Hgb 32.3 pg (27.0-31.0); Mean Corpuscular Volume 94.4 fL (80.0-94.0); Mean Platelet Volume 9.6 fL (7.4-10.4); Platelet Count 371 10^3/uL (130-400); Red Blood Cell Count 3.37 10^6/uL (4.70-6.10); White Blood Cell Count 8.9 10^3/uL (4.8-10.8)
[2024-02-10 07:00] VITALS: BP 118/59
[2024-02-10] MEDS: NSS 1000 IV ×2 (07:03→16:08)
[2024-02-10 07:10] LABS: Blood Urea Nitrogen 11 mg/dl (9-20); Calcium 8.7 mg/dl (8.4-10.2); Carbon Dioxide 24 mmol/L (22-30); Chloride 107 mmol/L (98-107); Glucose 126 mg/dl (70-99); Magnesium 1.7 mg/dl (1.6-2.3); Phosphorus 3.3 mg/dl (2.5-4.5); Potassium 4.4 mmol/L (3.5-5.1); Sodium 135 mmol/L (135-145); eGFR > 60.00
[2024-02-10] MEDS: COSOPT EYE DROPS 1 DROP BOTH EYES ×2 (07:32→20:37)
[2024-02-10] MEDS: COLACE 100 MG PO (07:32)
[2024-02-10] MEDS: PROSCAR 5 MG PO (07:32)
[2024-02-10 08:03] LABS: Glucose - Point of Care 126 mg/dl (70-99)
--- NOTE | 2024-02-10 10:01 | W.PN.GS2 ---
Today's Communication / Plan
-
Continue with clears today.
Assessment / Plan
-
This is an 83-year-old male with a history of pancreatic adenocarcinoma status post open distal pancreatectomy and splenectomy with adjuvant FOLFOX chemotherapy in September 2023 who presented on 02/07/2024 with abdominal pain found to have his first
small bowel obstruction adhesive versus malignant in the setting of a rising CA 19-9. Patient is having some return of bowel function
The natural history and pathophysiology of bowel obstructions was reviewed. We have specifically discussed the potential for a malignant bowel obstruction. Signs of radiographic improvement with passage of contrast into the RIGHT colon and
clinical improvement with less pain and distension. That being said x-ray demonstrates persistently dilated SB loops. We discussed the potential need for surgical intervention either during this hospitalization or as an outpatient as this issue is
unlikely to resolve itself on its own. Will also need to review case with Oncology if there is any role for further medical treatment.
--Will continue nonoperative management of this bowel obstruction.
-- Clears, supplement shakes
-- Appreciate oncology recommendations.
General surgery will continue to follow
Time Spent
Total Time Spent with Patient (in minutes): 20
Subjective Data
-
Date of Service: February 10, 2024
Interval Events:
No acute events overnight. Slept well. Pain Controlled. Denies Nausea/Vomiting, +bowel function. Tolerating diet.
Objective Data
-
Intake and Output
02/09/24 02/10/24 02/11/24
06:59 06:59 06:59
Intake Total 3290 / 3290 510 / 510
Balance 3290 / 3290 510 / 510
Intake:
Oral fluids 1950 / 1949 510 / 510
IV fluids (Total) 1320 / 1320
IV piggybacks
Other:
Number of approximated MODERATE 3 4
amounts of urine
How many times incontinent 3
MODERATE amount urine
Vital Signs
Temp Pulse Resp BP Pulse Ox
97.7 F 78 17 118/59 97
02/10/24 07:00 02/10/24 07:00 02/10/24 07:00 02/10/24 07:00 02/10/24 07:00
Lab Results
02/10/24 06:15
02/10/24 06:15
Calcium 8.7 mg/dl (8.4-10.2) 02/10/24 06:15
Phosphorus 3.3 mg/dl (2.5-4.5) 02/10/24 06:15
Magnesium 1.7 mg/dl (1.6-2.3) 02/10/24 06:15
Total Bilirubin 0.8 mg/dl (0.2-1.3) 02/07/24 07:54
AST 27 U/L (17-59) 02/07/24 07:54
ALT 17 U/L (0-50) 02/07/24 07:54
Alkaline Phosphatase 174 U/L (38-126) H 02/07/24 07:54
Total Protein 7.4 g/dl (6.3-8.2) 02/07/24 07:54
Albumin 4.3 g/dl (3.5-5.0) 02/07/24 07:54
Physical Exam
-
GENERAL/NEURO: Awake, Alert, no distress
CHEST: Unlabored breathing on RA
ABDOMEN: Soft, Non-Tender, mildly distended
[2024-02-10 12:26] LABS: Glucose - Point of Care 124 mg/dl (70-99)
--- NOTE | 2024-02-10 12:40 | W.PN.HOSP.TC ---
Today's Communication/Plan
-
IVF
Gs recs
clears
oob
Assessment / Plan
Assessment / Plan
Physical Exam
General: No pallor, cyanosis, or jaundice.
HEENT: Throat clear. PERRLA Normocephalic atraumatic
NECK: Supple. No JVD Carotid Bruits
RESPIRATORY: Lungs clear to auscultation. No crackles wheezes stridor
CVS: S1, S2 normal. RRR. No murmur, rub or gallop.
ABDOMEN: Soft, non-tender. No distension. BS+/normal.
EXTREMITIES: No peripheral cyanosis or edema.
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
83M DM HLD Hypothyroidism pancreatic Ca s/p pancreatic Tail resection Splenectomy p/w progressive abd pain constipation nausea last bowel movement [address] concerning for SBO. Patient comfortable pain well controlled after prn antinausea and
mpain medications given in ED. VSS
Small Bowel Obstruction
-Consult General Surgery appreciated diet advanced to Clear liquid
-Abd X-Rays appreciated
-had bm earlier today
Diabetes Mellitus
-hold metformin as on only clears for now
-Monitor sugars and continue coverage insulin
Hyperlipidemia
-resume atorvastatin
Hypothyroidism
-resume synthroid
Pancreatic Cancer s/p Resection and Chemotherapy
-CA 19-9 trending upwards
-Due for EUS later this year
Oncology eval appreciated
DVT proph: Lovenox
Code Status: DNR
Anticipated Discharge: > 48 hours
Subjective/Interval History
-
Date of Service: February 10, 2024
states had bm earlier today
no abd pain
Objective Data
-
Labs:
Laboratory Results
02/10/24
06:15
WBC 8.9
Hgb 10.9 L
Hct 31.8 L
Plt Count 371
Sodium 135
Potassium 4.4
Chloride 107
Carbon Dioxide 24
BUN 11
Creatinine 0.9
Glucose 126 H
Calcium 8.7
Vital Signs:
Vital Signs
Temp Pulse Resp BP Pulse Ox
97.7 F 78 17 118/59 97
02/10/24 07:00 02/10/24 07:00 02/10/24 07:00 02/10/24 07:00 02/10/24 07:00
I&O
02/09/24 02/10/24 02/11/24
06:59 06:59 06:59
Intake Total 3290 / 3290 510 / 510
Balance 3290 / 3290 510 / 510
[2024-02-10 15:00] VITALS: BP 136/60
[2024-02-10 17:05] LABS: Glucose - Point of Care 132 mg/dl (70-99)
[2024-02-10] MEDS: LOVENOX 40 MG SC (17:16)
[2024-02-10] MEDS: LIPITOR 40 MG PO (17:16)
[2024-02-10] MEDS: XALATAN OPHTHALMIC SOLUTION 1 DROP BOTH EYES (20:44)
[2024-02-10 21:57] LABS: Glucose - Point of Care 140 mg/dl (70-99)
[2024-02-10 23:00] VITALS: BP 122/62
[2024-02-11] MEDS: NSS 1000 IV ×2 (01:01→11:03)
[2024-02-11] MEDS: SYNTHROID 50 MCG PO (05:48)
[2024-02-11 07:00] VITALS: BP 128/59
[2024-02-11 07:12] LABS: Hematocrit 29.3 % (39.0-52.0); Mean Corp Hgb Conc. 34.1 g/dL (33.0-37.0); Mean Corpuscular Hgb 32.2 pg (27.0-31.0); Mean Corpuscular Volume 94.2 fL (80.0-94.0); Mean Platelet Volume 9.8 fL (7.4-10.4); Platelet Count 351 10^3/uL (130-400); Red Blood Cell Count 3.11 10^6/uL (4.70-6.10); Red Cell Dist. Width 13.1 % (11.5-14.5); White Blood Cell Count 7.4 10^3/uL (4.8-10.8)
[2024-02-11 07:48] LABS: Blood Urea Nitrogen 9 mg/dl (9-20); Calcium 8.6 mg/dl (8.4-10.2); Carbon Dioxide 25 mmol/L (22-30); Chloride 109 mmol/L (98-107); Glucose 113 mg/dl (70-99); Magnesium 1.8 mg/dl (1.6-2.3); Phosphorus 2.8 mg/dl (2.5-4.5); Potassium 4.2 mmol/L (3.5-5.1); Sodium 138 mmol/L (135-145); eGFR > 60.00
[2024-02-11 07:58] LABS: Glucose - Point of Care 123 mg/dl (70-99)
[2024-02-11] MEDS: PROSCAR 5 MG PO (08:40)
[2024-02-11] MEDS: COSOPT EYE DROPS 1 DROP BOTH EYES ×2 (08:40→21:02)
--- NOTE | 2024-02-11 11:01 | W.PN.HOSP.TC ---
Today's Communication/Plan
-
await GS recs
dec IVF rate
monitor bowel function
Assessment / Plan
Assessment / Plan
Physical Exam
General: No pallor, cyanosis, or jaundice.
HEENT: Throat clear. Normocephalic atraumatic
NECK: Supple. No JVD Carotid Bruits
RESPIRATORY: Lungs clear to auscultation. No crackles wheezes stridor
CVS: S1, S2 normal. RRR. No murmur, rub or gallop.
ABDOMEN: Soft, non-tender. No distension. BS+/normal. midline scar noted
EXTREMITIES: No peripheral cyanosis or edema.
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
83M DM HLD Hypothyroidism pancreatic Ca s/p pancreatic Tail resection Splenectomy p/w progressive abd pain constipation nausea last bowel movement [address] concerning for SBO. Patient comfortable pain well controlled after prn antinausea and
mpain medications given in ED. VSS
Small Bowel Obstruction
-Consult General Surgery appreciated diet advanced to Clear liquid with supplement shakes
-Abd X-Rays appreciated
-having persistent BM-?advance diet Fulls vs. LR. Defer to surgery.
Diabetes Mellitus
-hold metformin as on only clears for now
-Monitor sugars and continue coverage insulin
Hyperlipidemia
-resume atorvastatin
Hypothyroidism
-resume synthroid
Pancreatic Cancer s/p Resection and Chemotherapy
-CA 19-9 trending upwards
-Due for EUS later this year
Oncology eval appreciated
DVT proph: Lovenox
Code Status: DNR
Anticipated Discharge: Within 24 hours
Subjective/Interval History
-
Date of Service: February 11, 2024
states of having 5-6 loose but mildly formed BM
no abd pain this am
mild nausea overnight but resolved now
Objective Data
-
Labs:
Laboratory Results
02/11/24
06:43
WBC 7.4
Hgb 10.0 L
Hct 29.3 L
Plt Count 351
Sodium 138
Potassium 4.2
Chloride 109 H
Carbon Dioxide 25
BUN 9
Creatinine 0.9
Glucose 113 H
Calcium 8.6
Vital Signs:
Vital Signs
Temp Pulse Resp BP Pulse Ox
97.9 F 64 16 128/59 97
02/11/24 07:00 02/11/24 07:00 02/11/24 07:00 02/11/24 07:00 02/11/24 09:04
I&O
02/10/24 02/11/24 02/12/24
06:59 06:59 06:59
Intake Total 510 / 510 2079
Balance 510 / 510 2079
--- NOTE | 2024-02-11 11:54 | W.PN.GS2 ---
Today's Communication / Plan
-
-- Tentative plan for a diagnostic laparoscopy, likely exploratory laparotomy with possible bowel resection (02/11)
-- Clears, NPO PM
-- Perioperative antibiotics with Levaquin and Flagyl
Assessment / Plan
-
This is an 83-year-old male with a history of pancreatic adenocarcinoma status post open distal pancreatectomy and splenectomy with adjuvant FOLFOX chemotherapy in September 2023 who presented on 02/07/2024 with abdominal pain found to have his first
small bowel obstruction adhesive versus malignant in the setting of a rising CA 19-9. Patient is having some return of bowel function
The natural history and pathophysiology of bowel obstructions was reviewed. We have specifically discussed the potential for a malignant bowel obstruction. Signs of radiographic improvement with passage of contrast into the RIGHT colon and
clinical improvement with less pain and distension. That being said x-ray demonstrates persistently dilated SB loops, as well as crampy abdominal pain and nausea.
In depth discussion with patient, daughter, and Dr. Lopez from Oncology regarding current clinical situation and management options. Unlikely that he will have meaningful resolution and durability of symptoms with dietary modifications alone.
Options include surgical exploration with possible bowel resection versus palliative chemotherapy. Unlikely that palliative chemotherapy will provide a durable resolution of symptoms in a timely fashion, in addition to the uncertain nature of his
bowel obstruction (adhesive versus malignant). Surgical exploration to provide a more definitive and clear picture on the cause of his bowel obstruction, provide additional information from a prognostic standpoint, and be a more definitive and
durable correction of his symptoms. Patient agrees and is willing to proceed with surgery.
Tentative plan for a diagnostic laparoscopy, likely exploratory laparotomy with possible bowel resection tomorrow (02/11). The procedure itself, as well as the risks, benefits, and alternatives was discussed. Specifically, we discussed the risks of
bleeding, infection, injury to surrounding structures (bowel), wound complications, recurrence, and general anesthetic complications. We discussed the possibility of finding advanced disease that would prohibit surgical correction. We discussed
the potential difficulties with wound healing following malnutrition, cancer, and less likely ascites standpoint. Of note, no significant ascites appreciated on abdomen CT scan. Typical postprocedural recovery including ileus and the need for 4
weeks no heavy lifting or strenuous activities was discussed. All questions answered.
-- Tentative plan for a diagnostic laparoscopy, likely exploratory laparotomy with possible bowel resection (02/11)
-- Clears, NPO PM
-- Perioperative antibiotics with Levaquin and Flagyl
-- Appreciate Oncology recommendations.
-- Primary team updated
Subjective Data
-
Date of Service: February 11, 2024
Feels improved. Does report some mild crampy abdominal pain and nausea in the evening. Continues to pass flatus and multiple bowel movements. Afebrile.
Objective Data
-
Intake and Output
02/10/24 02/11/24 02/12/24
06:59 06:59 06:59
Intake Total 510 / 510 2079
Balance 510 / 510 2079
Intake:
Oral fluids 510 / 510 760 / 760
IV fluids (Total) 1320 / 1320
Other:
Number of approximated MODERATE 4 3
amounts of urine
Vital Signs
Temp Pulse Resp BP Pulse Ox
97.9 F 64 16 128/59 97
02/11/24 07:00 02/11/24 07:00 02/11/24 07:00 02/11/24 07:00 02/11/24 09:04
Lab Results
02/11/24 06:43
02/11/24 06:43
Calcium 8.6 mg/dl (8.4-10.2) 02/11/24 06:43
Phosphorus 2.8 mg/dl (2.5-4.5) 02/11/24 06:43
Magnesium 1.8 mg/dl (1.6-2.3) 02/11/24 06:43
Total Bilirubin 0.8 mg/dl (0.2-1.3) 02/07/24 07:54
AST 27 U/L (17-59) 02/07/24 07:54
ALT 17 U/L (0-50) 02/07/24 07:54
Alkaline Phosphatase 174 U/L (38-126) H 02/07/24 07:54
Total Protein 7.4 g/dl (6.3-8.2) 02/07/24 07:54
Albumin 4.3 g/dl (3.5-5.0) 02/07/24 07:54
Physical Exam
-
Gen: NAD
Abd: soft, NT, ND, non-peritoneal
[2024-02-11 12:05] LABS: Glucose - Point of Care 128 mg/dl (70-99)
--- NOTE | 2024-02-11 13:00 | W.PN.ONC ---
Today's Communication / Plan
-
Tolerating clear liquids. Further plans as per primary service and surgical service.
Impression
Impression
SBO
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
Previous 5-fluorouracil based chemotherapy unable to tolerate irinotecan
Hypothyroid
Hyperlipidemia
Glaucoma/cataracts
Small pulmonary nodules of unclear significance
Plan
Plan
SBO with transition may represent metastatic implant Clinically improvement clinically improving with conservative measures
Serologic concern for relapsed disease with rising CA 19 9
There is no measurable disease in the pancreatic bed
Pulmonary nodules too small to biopsy
Continue to evaluate for definitive evidence of measurable recurrence or pathologic confirmation
Advance diet as per surgical management
Additional chemotherapy would be palliative
Subjective/Objective
Subjective/Objective
He is feeling reasonably well. He has minimal nausea, no vomiting. He says his bowels did move. Examination is remarkable for diminished bowel sounds.
Vital Signs:
Vital Signs
Temp Pulse Resp BP Pulse Ox
97.9 F 64 16 128/59 97
02/11/24 07:00 02/11/24 07:00 02/11/24 07:00 02/11/24 07:00 02/11/24 09:04
Lab Results:
Laboratory Data
WBC 7.4 10^3/uL (4.8-10.8) 02/11/24 06:43
Hgb 10.0 g/dL (13.0-18.0) L 02/11/24 06:43
Plt Count 351 10^3/uL (130-400) 02/11/24 06:43
eGFR > 60.00 02/11/24 06:43
[2024-02-11 15:00] VITALS: BP 140/78
--- NOTE | 2024-02-11 16:14 | CM ---
CM reviewed chart- possible plan for OR tomorrow
Will follow for post op needs
Discharge Disposition- home, follow for post op needs
[2024-02-11 16:44] LABS: Glucose - Point of Care 132 mg/dl (70-99)
[2024-02-11] MEDS: LOVENOX 40 MG SC (17:25)
[2024-02-11] MEDS: LIPITOR 40 MG PO (17:26)
[2024-02-11] MEDS: XALATAN OPHTHALMIC SOLUTION 1 DROP BOTH EYES (21:02)
[2024-02-11 21:27] LABS: Glucose - Point of Care 110 mg/dl (70-99)
[2024-02-11 23:11] VITALS: BP 108/52
[2024-02-12] VITALS (14 sets, daily range): BP systolic 120–141; BP diastolic 58–85; BMI 21.0
[2024-02-12] MEDS: LR 1000 IV (00:50)
[2024-02-12] MEDS: NSS IV (01:32)
[2024-02-12] MEDS: SYNTHROID 50 MCG PO (05:12)
[2024-02-12 05:16] LABS: Glucose - Point of Care 126 mg/dl (70-99)
[2024-02-12 07:12] LABS: Hematocrit 28.8 % (39.0-52.0); Hemoglobin 9.8 g/dL (13.0-18.0); Mean Corpuscular Hgb 32.1 pg (27.0-31.0); Mean Corpuscular Volume 94.4 fL (80.0-94.0); Mean Platelet Volume 9.7 fL (7.4-10.4); Platelet Count 330 10^3/uL (130-400); Red Blood Cell Count 3.05 10^6/uL (4.70-6.10); Red Cell Dist. Width 13.2 % (11.5-14.5); White Blood Cell Count 7.8 10^3/uL (4.8-10.8)
[2024-02-12] MEDS: PROSCAR 5 MG PO (07:32)
[2024-02-12] MEDS: COLACE PO (07:32)
[2024-02-12] MEDS: COSOPT EYE DROPS 1 DROP BOTH EYES ×2 (07:33→22:27)
[2024-02-12 08:17] LABS: Blood Urea Nitrogen 7 mg/dl (9-20); Calcium 8.9 mg/dl (8.4-10.2); Carbon Dioxide 27 mmol/L (22-30); Chloride 108 mmol/L (98-107); Estimated Creatinine Clearance 60 ml/min; Glucose 111 mg/dl (70-99); Magnesium 1.8 mg/dl (1.6-2.3); Phosphorus 3.3 mg/dl (2.5-4.5); Potassium 4.2 mmol/L (3.5-5.1); Sodium 140 mmol/L (135-145); eGFR > 60.00
--- NOTE | 2024-02-12 12:13 | W.PN.HOSP.TC ---
Today's Communication/Plan
-
Postop orders per surgery
N.p.o.
IV fluids
Assessment / Plan
Assessment / Plan
Physical Exam
General: No pallor, cyanosis, or jaundice.
HEENT: Throat clear. Normocephalic atraumatic
NECK: Supple. No JVD Carotid Bruits
RESPIRATORY: Lungs clear to auscultation. No crackles wheezes stridor
CVS: S1, S2 normal. RRR. No murmur, rub or gallop.
ABDOMEN: Soft, non-tender. No distension. BS+/normal. midline scar noted
EXTREMITIES: No peripheral cyanosis or edema.
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
83M DM HLD Hypothyroidism pancreatic Ca s/p pancreatic Tail resection Splenectomy p/w progressive abd pain constipation nausea last bowel movement [address] concerning for SBO. Patient comfortable pain well controlled after prn antinausea and
mpain medications given in ED. VSS
Small Bowel Obstruction likely secondary to dilution versus malignancy with reduced
-Consult General Surgery appreciated diet advanced to Clear liquid with supplement shakes
-Abd X-Rays appreciated
-Discussed case with general surgery on 02/10. Plan for diagnostic laparoscopy likely ex lap with small bowel resection possible has history of pancreatic cancer and he could be additional history malignancy.
-NPO. IV fluids started.
Diabetes Mellitus
-hold metformin as on only clears for now
-Monitor sugars and continue coverage insulin
Hyperlipidemia
-resume atorvastatin
Hypothyroidism
-resume synthroid
Pancreatic Cancer s/p Resection and Chemotherapy
-CA 19-9 trending upwards
-Due for EUS later this year
Oncology eval appreciated
DVT proph: Lovenox
Code Status: DNR
Anticipated Discharge: > 48 hours
Subjective/Interval History
-
Date of Service: February 12, 2024
no abd pain
Objective Data
-
Labs:
Laboratory Results
02/12/24
06:49
WBC 7.8
Hgb 9.8 L
Hct 28.8 L
Plt Count 330
Sodium 140
Potassium 4.2
Chloride 108 H
Carbon Dioxide 27
BUN 7 L
Creatinine 0.9
Glucose 111 H
Calcium 8.9
Vital Signs:
Vital Signs
Temp Pulse Resp BP Pulse Ox
98 F 70 16 138/63 98
02/12/24 08:04 02/12/24 08:04 02/12/24 08:04 02/12/24 08:04 02/12/24 10:31
I&O
02/11/24 02/12/24 02/13/24
06:59 06:59 06:59
Intake Total 2079 1320 / 1320
Balance 2079 1320 / 1320
[2024-02-12 12:28] LABS: Glucose - Point of Care 101 mg/dl (70-99)
--- NOTE | 2024-02-12 13:07 | W.SUR.PREOP ---
Pre-Operative Surgical Note
-
I have examined this patient prior to the performance of the scheduled procedure.
The patient's condition is unchanged from the time of the current History and
Physical and the patient is able to undergo the scheduled procedure.
[2024-02-12] MEDS: ZOSYN 50 IV ×2 (14:24→22:26)
[2024-02-12] MEDS: OFIRMEV 100 IV ×2 (15:55→22:27)
--- NOTE | 2024-02-12 16:19 | W.IMMPOSTOP ---
Addendum entered and electronically signed by Pj Fair MD 02/13/24 08:47:
[facility]# [id number]
Original Note:
Surgical Immed Post Op Note
-
Primary Surgeon: Manjula
Assisting Surgeon: Óscar
Pre-op Diagnosis: Small bowel obstruction
Post-op Diagnosis: Malignant small bowel obstruction
Procedure Performed: Diagnostic laparoscopy, exploratory laparotomy, small bowel resection
Anesthesia Type: General
Specimen / Cultures:
1. Portion of small bowel
Estimated Blood Loss:7 cc
Complications: None
Operative Findings:
1. Dense adhesions primarily within upper abdomen
2. Concerning metastatic disease within abdominal wall causing small bowel obstruction, resection of ~ 30 cm SB incorporating mass with primary anastomosis
3. Pelvic met causing kinking of TI, lysis performed, no stricture or compromise
4. NGT and Owens placed
[2024-02-12] MEDS: DILAUDID 0.5 MG IV (16:50)
[2024-02-12 17:07] LABS: Glucose - Point of Care 111 mg/dl (70-99)
[2024-02-12] MEDS: NORMOSOL-R 1000 IV (17:40)
--- NOTE | 2024-02-12 18:00 | PTCARENOTE ---
Received patient from PACU. Patient very drowsy, but arousable to verbal stimuli. Patient with few coarse breath sounds in upper lobes, 2L NC 98%. Abdominal dressing with scant drainage, lap sites with surgical adhesive. NGT right nare to LIS, call
valdovinos in reach. Family at bedside.
[2024-02-12] MEDS: LR IV (19:37)
[2024-02-12] MEDS: PROTONIX IV 40 MG IV (19:51)
[2024-02-12] MEDS: LOVENOX 40 MG SC (19:51)
[2024-02-12] MEDS: NSS (PRESERVATIVE FREE) 10 ML IV (19:52)
[2024-02-12] MEDS: MORPHINE SULFATE 2 MG IV (19:54)
[2024-02-12] MEDS: XALATAN OPHTHALMIC SOLUTION 1 DROP BOTH EYES (22:26)
[2024-02-13 00:14] LABS: Glucose - Point of Care 129 mg/dl (70-99)
[2024-02-13] MEDS: MORPHINE SULFATE 2 MG IV ×2 (00:19→17:00)
[2024-02-13 03:06] VITALS: BP 118/56
[2024-02-13] MEDS: NORMOSOL-R 1000 IV ×2 (03:23→16:47)
[2024-02-13] MEDS: ZOSYN 50 IV ×3 (03:23→13:57)
[2024-02-13] MEDS: TORADOL 10 MG IV ×3 (03:28→23:03)
[2024-02-13] MEDS: OFIRMEV 100 IV ×2 (04:27→11:00)
[2024-02-13] MEDS: SYNTHROID PO (04:39)
[2024-02-13 06:24] LABS: Glucose - Point of Care 111 mg/dl (70-99)
[2024-02-13 06:33] LABS: Hematocrit 33.3 % (39.0-52.0); Hemoglobin 11.2 g/dL (13.0-18.0); Mean Corp Hgb Conc. 33.6 g/dL (33.0-37.0); Mean Corpuscular Hgb 32.1 pg (27.0-31.0); Mean Corpuscular Volume 95.4 fL (80.0-94.0); Mean Platelet Volume 10.3 fL (7.4-10.4); Platelet Count 370 10^3/uL (130-400); Red Blood Cell Count 3.49 10^6/uL (4.70-6.10); Red Cell Dist. Width 13.2 % (11.5-14.5); White Blood Cell Count 15.2 10^3/uL (4.8-10.8)
[2024-02-13 06:56] LABS: Blood Urea Nitrogen 11 mg/dl (9-20); Calcium 8.5 mg/dl (8.4-10.2); Carbon Dioxide 23 mmol/L (22-30); Chloride 100 mmol/L (98-107); Estimated Creatinine Clearance 60 ml/min; Glucose 99 mg/dl (70-99); Magnesium 1.9 mg/dl (1.6-2.3); Potassium 4.3 mmol/L (3.5-5.1); Sodium 137 mmol/L (135-145); eGFR > 60.00
--- NOTE | 2024-02-13 07:16 | W.PN.GS2 ---
Today's Communication / Plan
-
-- NPO, IVF NGT decompression, would continue until ROBF
-- Pain control: IV Tylenol, Toradol, Morphine
-- Abx: Zosyn for 24 hours post-op
-- Owens until POD2
Assessment / Plan
-
This is an 83-year-old male with a history of pancreatic adenocarcinoma status post open distal pancreatectomy and splenectomy with adjuvant FOLFOX chemotherapy in September 2023 who presented on 02/07/2024 with abdominal pain found to have his first
small bowel obstruction adhesive versus malignant in the setting of a rising CA 19-9.
POD#1 s/p diagnostic laparoscopy, exploratory laparotomy, SBR, and lysis of adhesions for a malignant SBO
In-depth discussion with patient and family regarding operative findings and surgical management. Postoperatively recovering well and no complications or issues at this time.
-- NPO, IVF NGT decompression, would continue until ROBF
-- Pain control: IV Tylenol, Toradol, Morphine
-- Abx: Zosyn for 24 hours post-op
-- Owens until POD2
-- DVT: Lovenox
-- GI: PPI
-- Appreciate Oncology on board, will need outpatient follow-up for discussions on chemotherapy.
Subjective Data
-
Date of Service: February 13, 2024
No major complaints. Pain well controlled. No nausea or emesis. No flatus or BM. No fevers.
Objective Data
-
Intake and Output
02/12/24 02/13/24 02/14/24
06:59 06:59 06:59
Intake Total 1320 / 1320 1620 / 1620
Output Total 2685 / 2685
Balance 1320 / 1320 -1065 / -1065
Intake:
Oral fluids 1320 / 1320
IV fluids (Total) 1200 / 1200
normosol 150 / 150
IV piggybacks 300 / 300
Amount instilled into GI Tube ( 120 / 120
Total)
[place] Sump 120 / 120
Output:
Gastrointestinal tube output ( 485 / 485
Total)
[place] Sump 485 / 485
Urine, Owens 2200 / 2200
Other:
Number of approximated MODERATE 4
amounts of urine
Vital Signs
Temp Pulse Resp BP Pulse Ox
97.5 F 72 16 118/56 98
02/13/24 03:06 02/13/24 03:06 02/13/24 03:06 02/13/24 03:06 02/13/24 03:06
Lab Results
02/13/24 05:28
02/13/24 05:28
Calcium 8.5 mg/dl (8.4-10.2) 02/13/24 05:28
Phosphorus 3.3 mg/dl (2.5-4.5) 02/12/24 06:49
Magnesium 1.9 mg/dl (1.6-2.3) 02/13/24 05:28
Total Bilirubin 0.8 mg/dl (0.2-1.3) 02/07/24 07:54
AST 27 U/L (17-59) 02/07/24 07:54
ALT 17 U/L (0-50) 02/07/24 07:54
Alkaline Phosphatase 174 U/L (38-126) H 02/07/24 07:54
Total Protein 7.4 g/dl (6.3-8.2) 02/07/24 07:54
Albumin 4.3 g/dl (3.5-5.0) 02/07/24 07:54
Physical Exam
-
Gen: NAD
HEENT: Dark bilious output
Abd: soft, tender to palpation, mild/moderate distension, non-peritoneal, dressing c/d/i
[2024-02-13 07:35] VITALS: BP 109/48
[2024-02-13] MEDS: PROSCAR 5 MG PO (08:37)
[2024-02-13] MEDS: PROTONIX IV 40 MG IV (08:38)
[2024-02-13] MEDS: NSS (PRESERVATIVE FREE) 10 ML IV (08:38)
[2024-02-13] MEDS: COSOPT EYE DROPS 1 DROP BOTH EYES ×2 (08:38→20:49)
[2024-02-13 10:10] VITALS: BMI 20.7
[2024-02-13 11:08] VITALS: BP 100/39
--- NOTE | 2024-02-13 12:04 | W.PN.HOSP.TC ---
Today's Communication/Plan
-
NG tube
IV fluid
PPI
General surgery recs
Wait for bowel function return
Assessment / Plan
Assessment / Plan
Physical Exam
General: No pallor, cyanosis, or jaundice.
HEENT: Throat clear. Normocephalic atraumatic
NECK: Supple. No JVD Carotid Bruits
RESPIRATORY: Lungs clear to auscultation. No crackles wheezes stridor
CVS: S1, S2 normal. RRR. No murmur, rub or gallop.
ABDOMEN: midline aquacell dressing noted. NGT with biliary output
EXTREMITIES: No peripheral cyanosis or edema.
LEGAL EDITOR: AOx3. 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
83M DM HLD Hypothyroidism pancreatic Ca s/p pancreatic Tail resection Splenectomy p/w progressive abd pain constipation nausea last bowel movement [address] concerning for SBO. Patient comfortable pain well controlled after prn antinausea and
mpain medications given in ED. VSS
Small Bowel Obstruction likely secondary to dilution versus malignancy with reduced
-Consult General Surgery appreciated diet advanced to Clear liquid with supplement shakes
-Abd X-Rays appreciated
-s/p status post diagnostic laparoscopy with exploratory laparotomy and small bowel resection. Op finding of density lesion primarily redoing the upper abdomen. Concern for metastatic disease within the abdominal wall causing small bowel
obstruction leading to resection of 30 cm of small bowel incorporating mass with primary anastomosis. Pelvic metastases causing kinking of TI, left lysis was performed.
-NPO. IV fluids started. Pain control. Monitor NGT output.
-Zosyn antibiotics for 24 hours per surgery.
Diabetes Mellitus
-hold metformin as on only clears for now
-Monitor sugars and continue coverage insulin
Hyperlipidemia
-resume atorvastatin
Hypothyroidism
-resume synthroid
Pancreatic Cancer s/p Resection and Chemotherapy
-CA 19-9 trending upwards
-Due for EUS later this year
Oncology eval appreciated
DVT proph: Lovenox
GI prophylaxis�PPI
Code Status: DNR
Anticipated Discharge: > 48 hours
Subjective/Interval History
-
Date of Service: February 13, 2024
states of mild abd pain
NGT with significant output
Objective Data
-
Labs:
Laboratory Results
02/13/24
05:28
WBC 15.2 H
Hgb 11.2 L
Hct 33.3 L
Plt Count 370
Sodium 137
Potassium 4.3
Chloride 100
Carbon Dioxide 23
BUN 11
Creatinine 0.9
Glucose 99
Calcium 8.5
Vital Signs:
Vital Signs
Temp Pulse Resp BP Pulse Ox
97.7 F 64 16 100/39 99
02/13/24 11:08 02/13/24 11:08 02/13/24 11:08 02/13/24 11:08 02/13/24 11:08
I&O
02/12/24 02/13/24 02/14/24
06:59 06:59 06:59
Intake Total 1320 / 1320 1620 / 1620
Output Total 2685 / 2685
Balance 1320 / 1320 -1065 / -1065
[2024-02-13 12:05] LABS: Glucose - Point of Care 108 mg/dl (70-99)
--- NOTE | 2024-02-13 12:54 | W.PN.ONC ---
Today's Communication / Plan
-
Patient recovering NG tube in place NPO
Pathology pending
Advance diet as per surgical management
Additional chemotherapy would be palliative
Impression
Impression
SBO
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
Previous 5-fluorouracil based chemotherapy unable to tolerate irinotecan
Hypothyroid
Hyperlipidemia
Glaucoma/cataracts
Small pulmonary nodules of unclear significance
Plan
Plan
SBO with transition may represent metastatic implant Clinically improvement clinically improving with conservative measures
Serologic concern for relapsed disease with rising CA 19 9
There is no measurable disease in the pancreatic bed
Pulmonary nodules too small to biopsy
Continue to evaluate for definitive evidence of measurable recurrence or pathologic confirmation
Subjective/Objective
Subjective/Objective
Resting NG tube in place. Complains of posterior pharyngeal discomfort.
Vital Signs:
Vital Signs
Temp Pulse Resp BP Pulse Ox
97.7 F 64 16 100/39 99
02/13/24 11:08 02/13/24 11:08 02/13/24 11:08 02/13/24 11:08 02/13/24 11:08
No scleral icterus
Heart regular
Lungs without rales or rhonchi
No lower extremity asymmetry
Lab Results:
Laboratory Data
WBC 15.2 10^3/uL (4.8-10.8) H 02/13/24 05:28
Hgb 11.2 g/dL (13.0-18.0) L 02/13/24 05:28
Plt Count 370 10^3/uL (130-400) 02/13/24 05:28
eGFR > 60.00 02/13/24 05:28
[2024-02-13 15:26] VITALS: BP 108/42
[2024-02-13] MEDS: LOVENOX 40 MG SC (16:48)
[2024-02-13 17:49] LABS: Glucose - Point of Care 121 mg/dl (70-99)
[2024-02-13] MEDS: CHLORASEPTIC/SORE THROAT SPRAY 1 SPRAY PO (18:32)
[2024-02-13 23:01] VITALS: BP 102/41
[2024-02-13] MEDS: XALATAN OPHTHALMIC SOLUTION 1 DROP BOTH EYES (23:03)
[2024-02-14 00:25] LABS: Glucose - Point of Care 72 mg/dl (70-99)
[2024-02-14] MEDS: NORMOSOL-R 1000 IV ×3 (02:40→20:36)
[2024-02-14] MEDS: SYNTHROID 50 MCG PO (05:55)
[2024-02-14 06:00] VITALS: BMI 21.5
[2024-02-14 06:17] LABS: Glucose - Point of Care 139 mg/dl (70-99)
[2024-02-14 07:03] VITALS: BP 117/37
[2024-02-14 07:47] LABS: Hemoglobin 9.7 g/dL (13.0-18.0); Mean Corp Hgb Conc. 33.4 g/dL (33.0-37.0); Mean Corpuscular Hgb 31.5 pg (27.0-31.0); Mean Corpuscular Volume 94.2 fL (80.0-94.0); Mean Platelet Volume 10.5 fL (7.4-10.4); Platelet Count 336 10^3/uL (130-400); Red Blood Cell Count 3.08 10^6/uL (4.70-6.10); Red Cell Dist. Width 13.3 % (11.5-14.5); White Blood Cell Count 13.4 10^3/uL (4.8-10.8)
--- NOTE | 2024-02-14 07:55 | CM ---
patient with sbo,sp sbr/anshu,ngt,ppi,await bowel function,pt/ot evals pending.plan home vs snf.
[2024-02-14] MEDS: PROTONIX IV 40 MG IV (08:25)
[2024-02-14] MEDS: COSOPT EYE DROPS 1 DROP BOTH EYES ×2 (08:25→20:36)
[2024-02-14] MEDS: NSS (PRESERVATIVE FREE) 10 ML IV (08:27)
[2024-02-14] MEDS: TORADOL 10 MG IV (08:32)
[2024-02-14 08:34] LABS: Blood Urea Nitrogen 29 mg/dl (9-20); Calcium 8.2 mg/dl (8.4-10.2); Carbon Dioxide 24 mmol/L (22-30); Chloride 100 mmol/L (98-107); Estimated Creatinine Clearance 43 ml/min; Glucose 133 mg/dl (70-99); Magnesium 2.2 mg/dl (1.6-2.3); Sodium 135 mmol/L (135-145); eGFR 55.19
--- NOTE | 2024-02-14 08:41 | W.PN.GS2 ---
Addendum entered and electronically signed by Pj Fair MD 02/14/24 13:47:
Patient seen and examined. Agree with assessment plan as documented below.
Major complaints. Pain overall well-controlled. No nausea or vomiting. No flatus or BM. No fevers.
Gen: NAD
HEENT: Minimal bilious output
Abd: soft, mild tenderness to palpation, mild distension, non-peritoneal, dressing with some shadowing
POD#2 s/p diagnostic laparoscopy, exploratory laparotomy, SBR, and lysis of adhesions for a malignant SBO
AFVSS
Leukocytosis trending down (reactive)
Hbg 9.8 to 11.2 to 9.7. Acute on chronic anemia. Hemodilution and expected intraop losses contributing to acute component. No evidence of active bleeding
Postoperatively recovering well and no complications or issues at this time.
-- NPO, IVF NGT decompression, would continue until ROBF
-- Pain control: IV Tylenol, Toradol, Morphine
-- Voiding trial today
-- DVT ppx: Lovenox
-- GI ppx: PPI
-- Appreciate Oncology on board, will need outpatient follow-up for discussions on chemotherapy.
Original Note:
Today's Communication / Plan
-
NPO/NGT/IVF
Assessment / Plan
-
This is an 83-year-old male with a history of pancreatic adenocarcinoma status post open distal pancreatectomy and splenectomy with adjuvant FOLFOX chemotherapy in September 2023 who presented on 02/07/2024 with abdominal pain found to have his first
small bowel obstruction adhesive versus malignant in the setting of a rising CA 19-9.
POD#2 s/p diagnostic laparoscopy, exploratory laparotomy, SBR, and lysis of adhesions for a malignant SBO
AFVSS
Leukocytosis trending down (reactive)
Hbg 9.8 to 11.2 to 9.7. Acute on chronic anemia. Hemodilution and expected intraop losses contributing to acute component. No evidence of active bleeding
Postoperatively recovering well and no complications or issues at this time.
-- NPO, IVF NGT decompression, would continue until ROBF
-- Pain control: IV Tylenol, Toradol, Morphine
-- Voiding trial today
-- Follow labs
-- DVT ppx: Lovenox
-- GI ppx: PPI
-- Appreciate Oncology on board, will need outpatient follow-up for discussions on chemotherapy.
Subjective Data
-
Date of Service: February 14, 2024
Patient seen and examined at bedside. Notes more abdominal cramping today. Has not yet passed flatus. Denies n/v. Due to void since removal of shaffer.
Objective Data
-
Intake and Output
02/13/24 02/14/24 02/15/24
06:59 06:59 06:59
Intake Total 1620 / 1620 2780 / 2780
Output Total 2685 / 2685 1100 / 1100
Balance -1065 / -1065 1680 / 1680
Intake:
IV fluids (Total) 1200 / 1200 2400 / 2400
normosol 150 / 150
IV piggybacks 300 / 300 200 / 200
Amount instilled into GI Tube ( 120 / 120 180 / 180
Total)
[place] Sump 120 / 120 180 / 180
Output:
Gastrointestinal tube output ( 485 / 485 450 / 450
Total)
[place] Sump 485 / 485 450 / 450
Urine, Shaffer 2200 / 2200 650 / 650
Vital Signs
Temp Pulse Resp BP Pulse Ox
98.6 F 85 14 117/37 100
02/14/24 07:03 02/14/24 07:03 02/14/24 07:03 02/14/24 07:03 02/14/24 07:03
Lab Results
02/14/24 07:15
02/14/24 07:15
Calcium 8.2 mg/dl (8.4-10.2) L 02/14/24 07:15
Phosphorus 3.3 mg/dl (2.5-4.5) 02/12/24 06:49
Magnesium 2.2 mg/dl (1.6-2.3) 02/14/24 07:15
Total Bilirubin 0.8 mg/dl (0.2-1.3) 02/07/24 07:54
AST 27 U/L (17-59) 02/07/24 07:54
ALT 17 U/L (0-50) 02/07/24 07:54
Alkaline Phosphatase 174 U/L (38-126) H 02/07/24 07:54
Total Protein 7.4 g/dl (6.3-8.2) 02/07/24 07:54
Albumin 4.3 g/dl (3.5-5.0) 02/07/24 07:54
Physical Exam
-
Gen: NAD
HEENT: Dark bilious output
Abd: soft, tender to palpation, moderate distension, non-peritoneal, dressing c/d/i with some shadowing
--- NOTE | 2024-02-14 09:33 | CM ---
Patient stated that daughter also lives with him as well as her family and his . Patient daughter is a nurse. Patient indicated that he wants to go home with VN supports if needed but most likely will not need other than patient daughter. CM
will continue to follow for discharge planning needs.
Plan; home with no need vs VN
--- NOTE | 2024-02-14 10:38 | W.PN.HOSP.TC ---
Today's Communication/Plan
-
NPO. IVF.
DC NSAIDs
trend cr
urine studies
Assessment / Plan
Assessment / Plan
Physical Exam
General: No pallor, cyanosis, or jaundice.
HEENT: Throat clear. Normocephalic atraumatic
NECK: Supple. No JVD Carotid Bruits
RESPIRATORY: Lungs clear to auscultation. No crackles wheezes stridor
CVS: S1, S2 normal. RRR. No murmur, rub or gallop.
ABDOMEN: midline aquacell dressing noted. NGT with biliary output
EXTREMITIES: No peripheral cyanosis or edema.
CHOIR DIRECTOR: AOx3. 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
83M DM HLD Hypothyroidism pancreatic Ca s/p pancreatic Tail resection Splenectomy p/w progressive abd pain constipation nausea last bowel movement [address] concerning for SBO. Patient comfortable pain well controlled after prn antinausea and
mpain medications given in ED. VSS
Small Bowel Obstruction likely secondary to dilution versus malignancy with reduced
-Consult General Surgery appreciated diet advanced to Clear liquid with supplement shakes
-Abd X-Rays appreciated
-s/p status post diagnostic laparoscopy with exploratory laparotomy and small bowel resection. Op finding of density lesion primarily redoing the upper abdomen. Concern for metastatic disease within the abdominal wall causing small bowel
obstruction leading to resection of 30 cm of small bowel incorporating mass with primary anastomosis. Pelvic metastases causing kinking of TI, left lysis was performed.
-NPO. IV fluids started. Pain control. Monitor NGT output.
-Zosyn DCed after 24h
Leukocytosis likely secondary stress postop reaction
-Patient continues with incentive spirometry. Afebrile.
-Trend CBC for now.
Elevated creatinine suspected acute kidney injury
-DC Toradol. Increase IV fluid to match output of NG tube.
-Avoid net negative balance. Monitor urinary output
-Check urine studies.
Diabetes Mellitus
-hold metformin as on only clears for now
-Monitor sugars and continue coverage insulin
Hyperlipidemia
-hold atorvastatin
Hypothyroidism
-hold synthroid
Pancreatic Cancer s/p Resection and Chemotherapy
-CA 19-9 trending upwards
-Due for EUS later this year
Oncology eval appreciated
BPH
-Hold finasteride as npo
DVT proph: Lovenox
GI prophylaxis�PPI
Code Status: DNR
Anticipated Discharge: > 48 hours
Subjective/Interval History
-
Date of Service: February 14, 2024
states of some abd cramps but no severe pain
Objective Data
-
Labs:
Laboratory Results
02/14/24
07:15
WBC 13.4 H
Hgb 9.7 L
Hct 29.0 L
Plt Count 336
Sodium 135
Potassium 4.0
Chloride 100
Carbon Dioxide 24
BUN 29 H
Creatinine 1.3
Glucose 133 H
Calcium 8.2 L
Vital Signs:
Vital Signs
Temp Pulse Resp BP Pulse Ox
98.6 F 85 14 117/37 100
02/14/24 07:03 02/14/24 07:03 02/14/24 07:03 02/14/24 07:03 02/14/24 07:03
I&O
02/13/24 02/14/24 02/15/24
06:59 06:59 06:59
Intake Total 1620 / 1620 2780 / 2780
Output Total 2685 / 2685 1100 / 1100
Balance -1065 / -1065 1680 / 1680
Data Reviewed
-
Total Time Spent with Patient (in minutes): 56
[2024-02-14 11:00] VITALS: BP 107/46
[2024-02-14 11:51] LABS: Urine Albumin Negative (Neg - Trace); Urine Bilirubin 1+ (Negative); Urine Character Clear (Clear); Urine Color Yellow; Urine Glucose Negative (Negative); Urine Ketone 3+ (Negative); Urine Leukocyte Negative (Negative); Urine Nitrite Negative (Negative); Urine Occult Blood 2+ (Negative); Urine Specific Gravity 1.025 (<1.030); Urine Urobilinogen Negative (Neg - 1+)
[2024-02-14 12:02] LABS: Urine Squamous Cell 0-2 /LPF (Few)
[2024-02-14 12:03] LABS: Urine Bacteria Few (Negative); Urine White Cell 0-2 /HPF (0-5)
[2024-02-14 12:07] LABS: Glucose - Point of Care 145 mg/dl (70-99)
[2024-02-14 14:27] LABS: Urine Sodium 64 mmol/L (30-90)
[2024-02-14 15:00] VITALS: BP 115/49
[2024-02-14] MEDS: MORPHINE SULFATE 2 MG IV (15:37)
[2024-02-14 17:50] LABS: Glucose - Point of Care 135 mg/dl (70-99)
[2024-02-14] MEDS: LOVENOX 40 MG SC (17:56)
--- NOTE | 2024-02-14 19:25 | PTCARENOTE ---
At 1755, while going in patients room getting medications ready, patients NGT fell out of nares. Dr. Cantrell made aware and instructed RN to keep it out for now. Patient had 180 ml of dark brown/green fluid in canister prior to it falling out,
including 60 ml of flush.
[2024-02-14] MEDS: OFIRMEV 100 IV (20:38)
[2024-02-14] MEDS: XALATAN OPHTHALMIC SOLUTION 1 DROP BOTH EYES (21:06)
[2024-02-14 23:20] VITALS: BP 91/40
--- NOTE | 2024-02-14 23:56 | PTCARENOTE ---
Pt manual BP 90/46 HR 71 asymptomatic sleeping in bed @ this time. Reached out to alumni relations manager MD and reported to monitor if asymptomatic. Pt has IV fluids infusing and voiding w/o difficulty.
[2024-02-14 23:58] LABS: Glucose - Point of Care 148 mg/dl (70-99)
[2024-02-15 05:07] VITALS: BMI 21.6
[2024-02-15 05:31] VITALS: BP 109/52
[2024-02-15 05:32] LABS: Glucose - Point of Care 137 mg/dl (70-99)
[2024-02-15 05:55] LABS: Hematocrit 23.6 % (39.0-52.0); Hemoglobin 8.3 g/dL (13.0-18.0); Mean Corp Hgb Conc. 35.2 g/dL (33.0-37.0); Mean Corpuscular Hgb 32.3 pg (27.0-31.0); Mean Corpuscular Volume 91.8 fL (80.0-94.0); Mean Platelet Volume 10.6 fL (7.4-10.4); Platelet Count 320 10^3/uL (130-400); Red Blood Cell Count 2.57 10^6/uL (4.70-6.10); Red Cell Dist. Width 13.7 % (11.5-14.5); White Blood Cell Count 12.3 10^3/uL (4.8-10.8)
[2024-02-15 06:17] LABS: Blood Urea Nitrogen 31 mg/dl (9-20); Calcium 8.2 mg/dl (8.4-10.2); Carbon Dioxide 28 mmol/L (22-30); Chloride 102 mmol/L (98-107); Estimated Creatinine Clearance 56 ml/min; Glucose 107 mg/dl (70-99); Magnesium 2.4 mg/dl (1.6-2.3); Potassium 3.7 mmol/L (3.5-5.1); Sodium 136 mmol/L (135-145); eGFR > 60.00
[2024-02-15 07:00] VITALS: BP 154/83
[2024-02-15] MEDS: NSS (PRESERVATIVE FREE) 10 ML IV (08:26)
[2024-02-15] MEDS: COSOPT EYE DROPS 1 DROP BOTH EYES ×2 (08:26→20:44)
[2024-02-15] MEDS: PROTONIX IV 40 MG IV (08:27)
--- NOTE | 2024-02-15 09:03 | W.PN.GS2 ---
Addendum entered and electronically signed by Lavell Cantrell MD 02/15/24 14:19:
Patient seen and examined this a.m. with nurse practitioner. This is a delayed entry. Agree with documented progress note.
NG tube fell out yesterday afternoon. He has tolerated it removal without nausea or vomiting.
Overall feeling better, is having some gas cramps. No flatus or bowel movements.
AFVSS
ABD: Softly protuberant but not overly distended. Mild tenderness palpation. No rebound rigidity or guarding. Midline incision dressing in place.
WBC improved to 12.3. Hemoglobin dropped to 8.3 but no active signs of bleeding, may likely be dilutional.
Assessment/plan: POD #3 status post ex lap, SBR for management of malignant SBO
Hold Lovenox and monitor H&H with repeat tomorrow a.m.
Maintain n.p.o. except sips and chips for comfort until further signs of postoperative GI recovery
Original Note:
Today's Communication / Plan
-
NPO/IVF
Assessment / Plan
-
This is an 83-year-old male with a history of pancreatic adenocarcinoma status post open distal pancreatectomy and splenectomy with adjuvant FOLFOX chemotherapy in September 2023 who presented on 02/07/2024 with abdominal pain found to have his first
small bowel obstruction adhesive versus malignant in the setting of a rising CA 19-9.
POD#3 s/p diagnostic laparoscopy, exploratory laparotomy, SBR, and lysis of adhesions for a malignant SBO
AFVSS
Leukocytosis continues trending down (reactive)
Hbg 9.7 to 8.3. Acute on chronic anemia. Hemodilution and expected intraop losses contributing to acute component. No evidence of active bleeding
NGT accidentally dislodged overnight
Postoperatively recovering well and no complications or issues at this time.
-- NPO/IVF until ROBF
-- Place NGT if develops n/v
-- Pain control: IV Tylenol, Morphine
-- Follow labs
-- DVT ppx: Hold lovenox until h/h stabilized. SCD's while in bed
-- GI ppx: PPI
-- Appreciate Oncology on board, will need outpatient follow-up for discussions on chemotherapy.
Subjective Data
-
Date of Service: February 15, 2024
Patient seen and examined at bedside. Denies n/v. Mild cramping pain across abdomen. Cramping improved from yesterday. Voiding without difficultly. No passage of flatus/stools as of yet. NGT accidentally dislodged yesterday. Overall, he notes that
he is feeling better.
Objective Data
-
Intake and Output
02/14/24 02/15/24 02/16/24
06:59 06:59 06:59
Intake Total 2780 / 2780 3480 / 3480
Output Total 1100 / 1100 1080 / 1080
Balance 1680 / 1680 2400 / 2400
Intake:
Oral fluids 480 / 480
IV fluids (Total) 2400 / 2400 2840 / 2840
IV piggybacks 200 / 200 100 / 100
Amount instilled into GI Tube ( 180 / 180 60 / 60
Total)
[place] Sump 180 / 180 60 / 60
Output:
Gastrointestinal tube output ( 450 / 450 180 / 180
Total)
[place] Sump 450 / 450 180 / 180
Urine, Owens 650 / 650
Urine, Voided 900 / 900
Vital Signs
Temp Pulse Resp BP Pulse Ox
97.5 F 76 16 154/83 96
02/15/24 07:00 02/15/24 07:00 02/15/24 07:00 02/15/24 07:00 02/15/24 07:00
Lab Results
02/15/24 04:47
02/15/24 04:47
Calcium 8.2 mg/dl (8.4-10.2) L 02/15/24 04:47
Phosphorus 3.3 mg/dl (2.5-4.5) 02/12/24 06:49
Magnesium 2.4 mg/dl (1.6-2.3) H 02/15/24 04:47
Total Bilirubin 0.8 mg/dl (0.2-1.3) 02/07/24 07:54
AST 27 U/L (17-59) 02/07/24 07:54
ALT 17 U/L (0-50) 02/07/24 07:54
Alkaline Phosphatase 174 U/L (38-126) H 02/07/24 07:54
Total Protein 7.4 g/dl (6.3-8.2) 02/07/24 07:54
Albumin 4.3 g/dl (3.5-5.0) 02/07/24 07:54
Physical Exam
-
NAD, ox3
Abd: soft, mildly tender to palpation, mild to moderate distension, non-peritoneal, dressing c/d/i with some shadowing
[2024-02-15] MEDS: OFIRMEV 100 IV (09:50)
--- NOTE | 2024-02-15 10:13 | W.PN.HOSP.TC ---
Today's Communication/Plan
-
NPO
IVF
OOB/Ambulate
Assessment / Plan
Assessment / Plan
Physical Exam
General: No pallor, cyanosis, or jaundice.
HEENT: Throat clear. Normocephalic atraumatic
NECK: Supple. No JVD Carotid Bruits
RESPIRATORY: Lungs clear to auscultation. No crackles wheezes stridor
CVS: S1, S2 normal. RRR. No murmur, rub or gallop.
ABDOMEN: midline aquacell dressing noted.
EXTREMITIES: No peripheral cyanosis or edema.
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
83M DM HLD Hypothyroidism pancreatic Ca s/p pancreatic Tail resection Splenectomy p/w progressive abd pain constipation nausea last bowel movement [address] concerning for SBO. Patient comfortable pain well controlled after prn antinausea and
mpain medications given in ED. VSS
Small Bowel Obstruction likely secondary to dilution versus malignancy with adhesions
-Consult General Surgery appreciated diet advanced to Clear liquid with supplement shakes
-Abd X-Rays appreciated
-s/p status post diagnostic laparoscopy with exploratory laparotomy and small bowel resection. Op finding of density lesion primarily redoing the upper abdomen. Concern for metastatic disease within the abdominal wall causing small bowel
obstruction leading to resection of 30 cm of small bowel incorporating mass with primary anastomosis. Pelvic metastases causing kinking of TI, left lysis was performed.
-NPO. IV fluids started. Pain control. NG tube accidentally out. If episode of severe nausea vomiting and abdominal distention may need to place it back.
-Zosyn DCed after 24h
Leukocytosis likely secondary stress postop reaction
-Patient continues with incentive spirometry. Afebrile.
-Trend CBC for now.
Anemia with drop in hemoglobin likely dilutional with aggressive IV fluids
-Lovenox has been held. Trend H&H.
-No luminal bleeding noted.
Elevated creatinine suspected acute kidney injury
-DC Toradol. Increase IV fluid to match output of NG tube.
-Avoid net negative balance. Monitor urinary output
-Creatinine improved. Owens catheter out and passed voiding trial
Diabetes Mellitus
-hold metformin as on only clears for now
-Monitor sugars and continue coverage insulin
Hyperlipidemia
-hold atorvastatin
Hypothyroidism
-hold synthroid
Pancreatic Cancer s/p Resection and Chemotherapy
-CA 19-9 trending upwards
-Due for EUS later this year
Oncology eval appreciated
BPH
-Hold finasteride as npo
DVT proph: scds/oob/
GI prophylaxis�PPI
Code Status: DNR
Anticipated Discharge: > 48 hours
Subjective/Interval History
-
Date of Service: February 15, 2024
NG tube accidentally out
Patient denies abdominal pain
Has not passed flatulence yet
Objective Data
-
Labs:
Laboratory Results
02/15/24
04:47
WBC 12.3 H
Hgb 8.3 L
Hct 23.6 L
Plt Count 320
Sodium 136
Potassium 3.7
Chloride 102
Carbon Dioxide 28
BUN 31 H
Creatinine 1.0
Glucose 107 H
Calcium 8.2 L
Vital Signs:
Vital Signs
Temp Pulse Resp BP Pulse Ox
97.5 F 76 16 154/83 96
02/15/24 07:00 02/15/24 07:00 02/15/24 07:00 02/15/24 07:00 02/15/24 07:00
I&O
02/14/24 02/15/24 02/16/24
06:59 06:59 06:59
Intake Total 2780 / 2780 3480 / 3480
Output Total 1100 / 1100 1080 / 1080
Balance 1680 / 1680 2400 / 2400
[2024-02-15] MEDS: NORMOSOL-R 1000 IV ×2 (10:22→18:26)
[2024-02-15 12:01] LABS: Glucose - Point of Care 111 mg/dl (70-99)
[2024-02-15 15:55] VITALS: BP 112/40
[2024-02-15 18:15] LABS: Glucose - Point of Care 95 mg/dl (70-99)
[2024-02-15] MEDS: TYLENOL 650 MG PO (19:02)
[2024-02-15] MEDS: XALATAN OPHTHALMIC SOLUTION 1 DROP BOTH EYES (20:45)
[2024-02-15 23:00] VITALS: BP 114/51
[2024-02-15] MEDS: ZOFRAN 4 MG IV (23:27)
[2024-02-16 00:15] LABS: Glucose - Point of Care 87 mg/dl (70-99)
[2024-02-16] MEDS: NORMOSOL-R 1000 IV ×2 (03:00→12:35)
[2024-02-16] MEDS: NORMOSOL-R IV ×3 (03:15→11:51)
[2024-02-16] MEDS: TYLENOL 650 MG PO ×2 (04:21→20:16)
[2024-02-16] MEDS: SYNTHROID 50 MCG PO (05:55)
[2024-02-16 06:00] VITALS: BMI 21.3
[2024-02-16 06:04] LABS: Glucose - Point of Care 87 mg/dl (70-99)
[2024-02-16 06:44] LABS: % Basophils 0.3 % (0-2); % Eosinophils 11.4 % (0-6); % Immature Granulocytes 0.3 % (0-0.5); % Lymphocytes 19.2 % (20.5-51.1); % Monocytes 9.9 % (1.7-9.3); % Neutrophils 58.9 % (42.2-75.2); Absolute Eosinophils 1.2 10^3/uL (0-0.7); Absolute Neutrophils 6.1 10^3/uL (1.4-6.5); Hematocrit 23.5 % (39.0-52.0); Mean Corpuscular Hgb 32.8 pg (27.0-31.0); Mean Corpuscular Volume 96.3 fL (80.0-94.0); Mean Platelet Volume 10.9 fL (7.4-10.4); Nucleated Red Blood Cells % 0 % (-); Platelet Count 321 10^3/uL (130-400); Red Blood Cell Count 2.44 10^6/uL (4.70-6.10); Red Cell Dist. Width 13.7 % (11.5-14.5); White Blood Cell Count 10.4 10^3/uL (4.8-10.8)
[2024-02-16 07:05] VITALS: BP 110/53
[2024-02-16 07:06] LABS: Blood Urea Nitrogen 23 mg/dl (9-20); Carbon Dioxide 27 mmol/L (22-30); Chloride 103 mmol/L (98-107); Estimated Creatinine Clearance 69 ml/min; Glucose 68 mg/dl (70-99); Potassium 3.9 mmol/L (3.5-5.1); Sodium 137 mmol/L (135-145); eGFR > 60.00
[2024-02-16] MEDS: PROTONIX IV 40 MG IV (08:19)
[2024-02-16] MEDS: COSOPT EYE DROPS 1 DROP BOTH EYES ×2 (08:20→20:13)
[2024-02-16] MEDS: NSS (PRESERVATIVE FREE) 10 ML IV (08:20)
--- NOTE | 2024-02-16 08:26 | W.PN.GS2 ---
Today's Communication / Plan
-
`
Assessment / Plan
-
This is an 83-year-old male with a history of pancreatic adenocarcinoma status post open distal pancreatectomy and splenectomy with adjuvant FOLFOX chemotherapy in September 2023 who presented on 02/07/2024 with abdominal pain found to have his first
small bowel obstruction adhesive versus malignant in the setting of a rising CA 19-9.
POD#4 s/p diagnostic laparoscopy, exploratory laparotomy, SBR, and lysis of adhesions for a malignant SBO
AFVSS
Doing well postop with signs of returning GI function
Plan: Start clear liquid diet
Renewed IV fluids at reduced rate -May stop IV fluids if tolerating p.o.
Increase ambulation/OOBTC
-- DVT ppx: resume lovenox. SCD's while in bed
-- GI ppx: PPI
-- Appreciate Oncology on board, will need outpatient follow-up for discussions on chemotherapy.
Subjective Data
-
Date of Service: February 16, 2024
Patient seen and examined. Daughter at bedside.
Mr. Maurer is feeling well. Urged to pass flatus.
No nausea, appetite starting to return, does not feel distended
Mild postoperative incisional pain/discomfort
Objective Data
-
Intake and Output
02/15/24 02/16/24 02/17/24
06:59 06:59 06:59
Intake Total 3480 / 3480 1680 / 1680
Output Total 1080 / 1080 850 / 850
Balance 2400 / 2400 830 / 830
Intake:
Oral fluids 480 / 480 240 / 240
IV fluids (Total) 2840 / 2840 1440 / 1440
IV piggybacks 100 / 100
Amount instilled into GI Tube ( 60 / 60
Total)
[place] Sump 60 / 60
Output:
Gastrointestinal tube output ( 180 / 180
Total)
Sharp Sump 180 / 180
Urine, Voided 900 / 900 850 / 850
Vital Signs
Temp Pulse Resp BP Pulse Ox
97.3 F 75 15 110/53 95
02/16/24 07:05 02/16/24 07:05 02/16/24 07:05 02/16/24 07:05 02/16/24 07:05
Lab Results
02/16/24 05:12
02/16/24 05:12
Calcium 8.0 mg/dl (8.4-10.2) L 02/16/24 05:12
Phosphorus 3.3 mg/dl (2.5-4.5) 02/12/24 06:49
Magnesium 2.4 mg/dl (1.6-2.3) H 02/15/24 04:47
Total Bilirubin 0.8 mg/dl (0.2-1.3) 02/07/24 07:54
AST 27 U/L (17-59) 02/07/24 07:54
ALT 17 U/L (0-50) 02/07/24 07:54
Alkaline Phosphatase 174 U/L (38-126) H 02/07/24 07:54
Total Protein 7.4 g/dl (6.3-8.2) 02/07/24 07:54
Albumin 4.3 g/dl (3.5-5.0) 02/07/24 07:54
Physical Exam
-
NAD AAOx3
ABD: Soft, slightly protuberant but not distended. Minimal tenderness on palpation.
Midline incision -dressing removed, closed incision, no active drainage, no erythema, no open wounds
--- NOTE | 2024-02-16 11:53 | W.PN.HOSP.TC ---
Today's Communication/Plan
-
Monitor on clears
Decrease IV fluid
Ambulate
Restart Lovenox pending surgery clearance
Assessment / Plan
Assessment / Plan
Physical Exam
General: No pallor, cyanosis, or jaundice.
HEENT: Throat clear. Normocephalic atraumatic
NECK: Supple. No JVD Carotid Bruits
RESPIRATORY: Lungs clear to auscultation. No crackles wheezes stridor
CVS: S1, S2 normal. RRR. No murmur, rub or gallop.
ABDOMEN: midline aquacell dressing noted, non distended
EXTREMITIES: No peripheral cyanosis or edema.
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
83M DM HLD Hypothyroidism pancreatic Ca s/p pancreatic Tail resection Splenectomy p/w progressive abd pain constipation nausea last bowel movement [address] concerning for SBO. Patient comfortable pain well controlled after prn antinausea and
mpain medications given in ED. VSS
Small Bowel Obstruction likely secondary to dilution versus malignancy with adhesions
-Abd X-Rays appreciated
-s/p status post diagnostic laparoscopy with exploratory laparotomy and small bowel resection. Op finding of density lesion primarily redoing the upper abdomen. Concern for metastatic disease within the abdominal wall causing small bowel
obstruction leading to resection of 30 cm of small bowel incorporating mass with primary anastomosis. Pelvic metastases causing kinking of TI, left lysis was performed.
-Passing flatulence bedside in clinic with diet. IV fluid rate decreased.
-Zosyn DCed after 24h
Leukocytosis likely secondary stress postop reaction
-Patient continues with incentive spirometry. Afebrile.
-Trend CBC for now.
Anemia with drop in hemoglobin likely dilutional with aggressive IV fluids
-Lovenox has been held. Trend H&H.
-No luminal bleeding noted. Hemoglobin 8.
Elevated creatinine suspected acute kidney injury
-DC Toradol. Increase IV fluid to match output of NG tube.
-Avoid net negative balance. Monitor urinary output
-Creatinine improved. Owens catheter out and passed voiding trial
Diabetes Mellitus
-hold metformin as on only clears for now
-Monitor sugars and continue coverage insulin
Hyperlipidemia
-hold atorvastatin
Hypothyroidism
-hold synthroid
Pancreatic Cancer s/p Resection and Chemotherapy
-CA 19-9 trending upwards
-Due for EUS later this year
Oncology eval appreciated
BPH
-Hold finasteride as npo
DVT proph: scds/oob/
GI prophylaxis�PPI
Code Status: DNR
Discussed with patient daughter at bedside in detail.
Anticipated Discharge: > 48 hours
Subjective/Interval History
-
Date of Service: February 16, 2024
states passing flatulence
Objective Data
-
Labs:
Laboratory Results
02/16/24
05:12
WBC 10.4
Hgb 8.0 L
Hct 23.5 L
Plt Count 321
Sodium 137
Potassium 3.9
Chloride 103
Carbon Dioxide 27
BUN 23 H
Creatinine 0.8
Glucose 68 L
Calcium 8.0 L
Vital Signs:
Vital Signs
Temp Pulse Resp BP Pulse Ox
97.3 F 75 15 110/53 95
02/16/24 07:05 02/16/24 07:05 02/16/24 07:05 02/16/24 07:05 02/16/24 07:05
I&O
02/15/24 02/16/24 02/17/24
06:59 06:59 06:59
Intake Total 3480 / 3480 1680 / 1680 320 / 320
Output Total 1080 / 1080 850 / 850
Balance 2400 / 2400 830 / 830 320 / 320
Data Reviewed
-
Total Time Spent with Patient (in minutes): 54
[2024-02-16 12:16] LABS: Glucose - Point of Care 126 mg/dl (70-99)
[2024-02-16 15:10] VITALS: BP 132/51
[2024-02-16 16:57] LABS: Glucose - Point of Care 104 mg/dl (70-99)
[2024-02-16 21:23] LABS: Glucose - Point of Care 139 mg/dl (70-99)
[2024-02-16] MEDS: XALATAN OPHTHALMIC SOLUTION 1 DROP BOTH EYES (21:48)
[2024-02-16 23:02] VITALS: BP 115/55
[2024-02-17] MEDS: NORMOSOL-R 1000 IV (01:31)
[2024-02-17 05:31] VITALS: BMI 22.1
[2024-02-17] MEDS: SYNTHROID 50 MCG PO (05:35)
[2024-02-17 06:00] VITALS: BMI 22.1
--- NOTE | 2024-02-17 06:05 | PTCARENOTE ---
Pt awake intermittently t/o the night. No issues to report. Vital sings stable. IV fluids infusing as ordered. Tolerating clears. Reports pain at tolerable level. Will continue to monitor.
--- NOTE | 2024-02-17 06:06 | W.PN.HOSP.TC ---
Today's Communication/Plan
-
diet as per surgery
glycemic control
pain control
Assessment / Plan
Assessment / Plan
Physical Exam
General: No pallor, cyanosis, or jaundice.
HEENT: Throat clear. Normocephalic atraumatic
NECK: Supple. No JVD Carotid Bruits
RESPIRATORY: Lungs clear to auscultation. No crackles wheezes stridor
CVS: S1, S2 normal. RRR. No murmur, rub or gallop.
ABDOMEN: midline aquacell dressing noted, non distended
EXTREMITIES: No peripheral cyanosis or edema.
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
83M DM HLD Hypothyroidism pancreatic Ca s/p pancreatic Tail resection Splenectomy p/w progressive abd pain constipation nausea last bowel movement [address] concerning for SBO. Patient comfortable pain well controlled after prn antinausea and
mpain medications given in ED. VSS
Small Bowel Obstruction likely secondary to dilution versus malignancy with adhesions
-Abd X-Rays appreciated
-s/p status post diagnostic laparoscopy with exploratory laparotomy and small bowel resection. Op finding of density lesion primarily redoing the upper abdomen. Concern for metastatic disease within the abdominal wall causing small bowel
obstruction leading to resection of 30 cm of small bowel incorporating mass with primary anastomosis. Pelvic metastases causing kinking of TI, left lysis was performed.
-Passing flatulence bedside in clinic with diet. IV fluid rate decreased.
-Zosyn DCed after 24h
Leukocytosis likely secondary stress postop reaction
-Patient continues with incentive spirometry. Afebrile.
-Trend CBC for now.
Anemia with drop in hemoglobin likely dilutional with aggressive IV fluids
-Lovenox has been held. Trend H&H.
-No luminal bleeding noted. Hemoglobin 8.
Elevated creatinine suspected acute kidney injury
-DC Toradol. Increase IV fluid to match output of NG tube.
-Avoid net negative balance. Monitor urinary output
-Creatinine improved. Owens catheter out and passed voiding trial
Diabetes Mellitus
-hold metformin as on only clears for now
-Monitor sugars and continue coverage insulin
Hyperlipidemia
-hold atorvastatin
Hypothyroidism
-hold synthroid
Pancreatic Cancer s/p Resection and Chemotherapy
-CA 19-9 trending upwards
-Due for EUS later this year
Oncology eval appreciated
BPH
-Hold finasteride as npo
DVT proph: scds/oob/
GI prophylaxis�PPI
Code Status: DNR
Discussed with patient and patient's daughter Ophelia at bedside
I spent a total of 40 minutes with the patient or on the floor. More than 50% of this time involved counseling and coordination of care.
Anticipated Discharge: 24 - 48 hours
Subjective/Interval History
-
Date of Service: February 17, 2024
Seen and examined at bedside in no acute distress sitting up comfortably in chair. Reports some abd discomfort throughout day otherwise reports feeling well. Endorses bowel movement. Daughter Ophelia present during evaluation
Objective Data
-
Labs:
Laboratory Results
02/17/24
05:43
WBC Pending
Hgb Pending
Hct Pending
Plt Count Pending
Sodium Pending
Potassium Pending
Chloride Pending
Carbon Dioxide Pending
BUN Pending
Creatinine Pending
Glucose Pending
Calcium Pending
Vital Signs:
Vital Signs
Temp Pulse Resp BP Pulse Ox
98.3 F 76 14 115/55 95
02/16/24 23:02 02/16/24 23:02 02/16/24 23:02 02/16/24 23:02 02/16/24 23:02
I&O
02/15/24 02/16/24 02/17/24
06:59 06:59 06:59
Intake Total 3480 / 3480 1680 / 1680 2980 / 2980
Output Total 1080 / 1080 850 / 850 1375 / 1375
Balance 2400 / 2400 830 / 830 1605 / 1605
--- NOTE | 2024-02-17 06:49 | W.PN.GS2 ---
Addendum entered and electronically signed by Pedro Cottrell MD 02/17/24 10:37:
I saw and examined the patient independently.
The resident's note was reviewed and I agree with the note, assessment and plan except where noted below.
Comment: 83-year-old male with a history of pancreatic adenocarcinoma status post open distal pancreatectomy and splenectomy postop day 5 diagnostic laparoscopy converted to exploratory laparotomy, small bowel resection, lysis of adhesions for
malignant SBO. +Return of bowel function
Still mildly distended so we will advance only to full liquids for now.
Out of bed and ambulate
Pain control
General surgery will continue to follow.
Original Note:
Today's Communication / Plan
-
Diet advancement to full liquids
Out of bed ambulation
Assessment / Plan
-
83-year-old male with a history of pancreatic adenocarcinoma status post open distal pancreatectomy and splenectomy with adjuvant FOLFOX chemotherapy in September 2023 who presented on 02/07/2024 with abdominal pain found to have his first small bowel
obstruction adhesive versus malignant in the setting of a rising CA 19-9.
POD#5 s/p diagnostic laparoscopy, exploratory laparotomy, SBR, and lysis of adhesions for a malignant SBO
Doing well postop with signs of returning GI function-able to pass gas, awaiting return of bowel movement. Hemoglobin stable
-Dietary advancement from clear liquids to full liquids
-Continue IV fluids at reduced rate -May stop IV fluids if tolerating p.o.
-Encourage out of bed ambulation.
-Pain control: Tylenol as needed
Patient and agree with the plan. Answered all questions.
- DVT ppx: resume lovenox. SCD's while in bed
- GI ppx: PPI
- Appreciate Oncology on board, will need outpatient follow-up for discussions on chemotherapy.
Time Spent
Total Time Spent with Patient (in minutes): 15
Subjective Data
-
Date of Service: February 17, 2024
Interval events: Overall feeling much better, able to blood. Mild postoperative incisional discomfort. Tolerating clear liquids.
Objective Data
-
Intake and Output
02/15/24 02/16/24 02/17/24
06:59 06:59 06:59
Intake Total 3480 / 3480 1680 / 1680 2980 / 2980
Output Total 1080 / 1080 850 / 850 1375 / 1375
Balance 2400 / 2400 830 / 830 1605 / 1605
Intake:
Oral fluids 480 / 480 240 / 240 1140 / 1140
IV fluids (Total) 2840 / 2840 1440 / 1440 1840 / 1840
IV piggybacks 100 / 100
Amount instilled into GI Tube ( 60 / 60
Total)
[facility] Sump 60 / 60
Output:
Gastrointestinal tube output ( 180 / 180
Total)
[facility] [place] Sump 180 / 180
Urine, Voided 900 / 900 850 / 850 1375 / 1375
Vital Signs
Temp Pulse Resp BP Pulse Ox
98.3 F 76 14 115/55 95
02/16/24 23:02 02/16/24 23:02 02/16/24 23:02 02/16/24 23:02 02/16/24 23:02
Calcium 8.0 mg/dl (8.4-10.2) L 02/16/24 05:12
Phosphorus 3.3 mg/dl (2.5-4.5) 02/12/24 06:49
Magnesium 2.4 mg/dl (1.6-2.3) H 02/15/24 04:47
Total Bilirubin 0.8 mg/dl (0.2-1.3) 02/07/24 07:54
AST 27 U/L (17-59) 02/07/24 07:54
ALT 17 U/L (0-50) 02/07/24 07:54
Alkaline Phosphatase 174 U/L (38-126) H 02/07/24 07:54
Total Protein 7.4 g/dl (6.3-8.2) 02/07/24 07:54
Albumin 4.3 g/dl (3.5-5.0) 02/07/24 07:54
Physical Exam
-
General: No apparent distress
Abdomen: Soft, slightly protuberant. Mild tenderness on palpation near the incision site. Incision clean dry and intact. Minimal blanching erythema near the inferior midline incision. No open wound.
[2024-02-17 07:03] LABS: Glucose - Point of Care 116 mg/dl (70-99)
[2024-02-17 07:07] VITALS: BP 124/61
[2024-02-17 07:16] LABS: % Basophils 0.5 % (0-2); % Eosinophils 10.6 % (0-6); % Immature Granulocytes 0.4 % (0-0.5); % Lymphocytes 21.3 % (20.5-51.1); % Monocytes 10.6 % (1.7-9.3); % Neutrophils 56.6 % (42.2-75.2); Absolute Basophils 0.1 10^3/uL (0-0.2); Absolute Eosinophils 1.1 10^3/uL (0-0.7); Absolute Lymphocytes 2.2 10^3/uL (1.2-3.4); Absolute Monocytes 1.1 10^3/uL (0.1-0.6); Absolute Neutrophils 5.8 10^3/uL (1.4-6.5); Hematocrit 24.1 % (39.0-52.0); Hemoglobin 8.2 g/dL (13.0-18.0); Mean Corpuscular Hgb 31.9 pg (27.0-31.0); Mean Corpuscular Volume 93.8 fL (80.0-94.0); Mean Platelet Volume 10.7 fL (7.4-10.4); Nucleated Red Blood Cells % 0 % (-); Platelet Count 367 10^3/uL (130-400); Red Blood Cell Count 2.57 10^6/uL (4.70-6.10); Red Cell Dist. Width 13.7 % (11.5-14.5); White Blood Cell Count 10.1 10^3/uL (4.8-10.8)
[2024-02-17] MEDS: NOVOLOG FLEXPEN-LOW RESISTANCE SC ×2 (07:19→16:52)
[2024-02-17 07:30] LABS: Blood Urea Nitrogen 17 mg/dl (9-20); Carbon Dioxide 27 mmol/L (22-30); Chloride 104 mmol/L (98-107); Estimated Creatinine Clearance 82 ml/min; Glucose 96 mg/dl (70-99); Potassium 4.2 mmol/L (3.5-5.1); Sodium 136 mmol/L (135-145); eGFR > 60.00
[2024-02-17] MEDS: PROTONIX 40 MG PO (08:41)
[2024-02-17] MEDS: COSOPT EYE DROPS 1 DROP BOTH EYES ×2 (08:41→20:06)
[2024-02-17] MEDS: PROSCAR 5 MG PO (08:41)
[2024-02-17] MEDS: NORMOSOL-R IV (08:48)
[2024-02-17] MEDS: TYLENOL 650 MG PO ×2 (08:50→20:16)
--- NOTE | 2024-02-17 10:47 | W.PN.ONC2 ---
Today's Communication / Plan
-
daily CBC
follow for pathology
Impression
Impression
SBO, s/p laparoscopy, exploratory laparotomy, small bowel resection 02/11, path pending
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
Previous 5-fluorouracil based chemotherapy unable to tolerate irinotecan
Hypothyroid
Hyperlipidemia
Glaucoma/cataracts
Small pulmonary nodules of unclear significance
Plan
Plan
SBO s/p laparoscopy, exploratory laparotomy, small bowel resection 02/11, path pending
Serologic concern for relapsed disease with rising CA 19 9
There is no measurable disease in the pancreatic bed
Pulmonary nodules too small to biopsy
Subjective/Objective
Chief Complaint
passing flatus, no BM today, low abdominal 'pressure' but no overt pain
Subjective
denies bleedng
Vital Signs:
Vital Signs
Temp Pulse Resp BP Pulse Ox
98.2 F 82 16 124/61 96
02/17/24 07:07 02/17/24 07:07 02/17/24 07:07 02/17/24 07:07 02/17/24 08:00
Lab Results:
Laboratory Data
WBC 10.1 10^3/uL (4.8-10.8) 02/17/24 05:43
Hgb 8.2 g/dL (13.0-18.0) L 02/17/24 05:43
Plt Count 367 10^3/uL (130-400) 02/17/24 05:43
eGFR > 60.00 02/17/24 05:43
Physical Exam
HEENT: Moist Mucous Membranes; No Jaundice
Cardiology: S1 and S2
Pulmonary: Clear
GI: Soft (TTP, surgical site C/D/I) and Distended
Extremities: No Edema
Neuro: Non Focal
Review of Systems
Review of Systems
ROS notable for subjective, otherwise negative
[2024-02-17 11:55] LABS: Glucose - Point of Care 201 mg/dl (70-99)
[2024-02-17] MEDS: NOVOLOG FLEXPEN-LOW RESISTANCE 2 UNITS SC (12:09)
[2024-02-17 15:02] VITALS: BP 144/72
--- NOTE | 2024-02-17 16:11 | CM ---
Full liquids, following CBC. Daughter is nurse. Anticipate no needs at discharge.
[2024-02-17 16:52] LABS: Glucose - Point of Care 107 mg/dl (70-99)
[2024-02-17] MEDS: OSCAL CAL 500 1000 MG PO (17:26)
[2024-02-17] MEDS: LOVENOX 40 MG SC (17:27)
[2024-02-17 19:19] LABS: Vitamin D, 25-OH*** 24.3 ng/mL (30-80)
[2024-02-17 21:24] LABS: Glucose - Point of Care 152 mg/dl (70-99)
[2024-02-17] MEDS: XALATAN OPHTHALMIC SOLUTION 1 DROP BOTH EYES (21:28)
[2024-02-17 23:00] VITALS: BP 120/59
[2024-02-17] MEDS: ZOFRAN 4 MG IV (23:54)
[2024-02-18 03:00] VITALS: BP 119/69
[2024-02-18] MEDS: SYNTHROID 50 MCG PO (05:28)
[2024-02-18 06:00] VITALS: BMI 21.5
--- NOTE | 2024-02-18 06:56 | W.PN.GS2 ---
Addendum entered and electronically signed by Pj Fair MD 02/18/24 08:34:
Patient seen and examined.
Reports steady improvement. Denies worsening abdominal pain. Does report some bloating. Passing flatus and normal BM this AM. No current nausea or vomiting. Voiding. Ambulating.
Gen: NAD
Abd: soft, mild tenderness, mild distension, non-peritoneal, incision c/d/i - no erythema or drainage, mild ecchymosis
Nadeem is a 83 yo M p/w malignant SBO
POD#6 s/p diagnostic laparoscopy, exploratory laparotomy, SBR, and lysis of adhesions
Doing well postop with signs of returning GI function-able to pass gas, 1 BM yesterday. Of note, pathology was reviewed with patient.
-Trial of LRD
-DC IVF
-Encourage out of bed ambulation.
-Pain control: Tylenol a nd Tramadol
- DVT ppx: Lovenox. SCD's while in bed
- GI ppx: PPI
- Appreciate Oncology on board, will need outpatient follow-up for discussions on chemotherapy.
Original Note:
Today's Communication / Plan
-
Diet advancement to Low residue
Out of bed ambulation
OP fu with oncology due to concern for relapsed disease with rising CA 19 9
Assessment / Plan
-
83-year-old male with a history of pancreatic adenocarcinoma status post open distal pancreatectomy and splenectomy with adjuvant FOLFOX chemotherapy in September 2023 who presented on 02/07/2024 with abdominal pain found to have his first small bowel
obstruction adhesive versus malignant in the setting of a rising CA 19-9.
POD#6 s/p diagnostic laparoscopy, exploratory laparotomy, SBR, and lysis of adhesions for a malignant SBO
Doing well postop with signs of returning GI function-able to pass gas, 1 BM yesterday.
-Dietary advancement from full liquids to low residue
-d/c IV fluids since tolerating p.o.
-Encourage out of bed ambulation.
-Pain control: Tylenol as needed
Patient agree with the plan. Answered all questions.
- DVT ppx:lovenox. SCD's while in bed
- GI ppx: PPI
- Appreciate Oncology on board, will need outpatient follow-up for discussions on chemotherapy.
Time Spent
Total Time Spent with Patient (in minutes): 15
Subjective Data
-
Date of Service: February 18, 2024
Interval events: Overall feeling much better, able to pass flatus, 1 BM yesterday. Mild postoperative incisional discomfort. Tolerating full liquids.
Objective Data
-
Intake and Output
02/16/24 02/17/24 02/18/24
06:59 06:59 06:59
Intake Total 1680 / 1680 2980 / 2980 2200 / 2200
Output Total 850 / 850 1375 / 1375 300 / 300
Balance 830 / 830 1605 / 1605 1900 / 1900
Intake:
Oral fluids 240 / 240 1140 / 1140 2040 / 2040
IV fluids (Total) 1440 / 1440 1840 / 1840 160 / 160
Output:
Urine, Voided 850 / 850 1375 / 1375 300 / 300
Other:
Number of approximated MODERATE 5
amounts of urine
Vital Signs
Temp Pulse Resp BP Pulse Ox
98.3 F 75 14 119/69 97
02/18/24 03:00 02/18/24 03:00 02/18/24 03:00 02/18/24 03:00 02/18/24 03:00
Calcium 8.0 mg/dl (8.4-10.2) L 02/17/24 05:43
Phosphorus 3.3 mg/dl (2.5-4.5) 02/12/24 06:49
Magnesium 2.4 mg/dl (1.6-2.3) H 02/15/24 04:47
Total Bilirubin 0.8 mg/dl (0.2-1.3) 02/07/24 07:54
AST 27 U/L (17-59) 02/07/24 07:54
ALT 17 U/L (0-50) 02/07/24 07:54
Alkaline Phosphatase 174 U/L (38-126) H 02/07/24 07:54
Total Protein 7.4 g/dl (6.3-8.2) 02/07/24 07:54
Albumin 4.3 g/dl (3.5-5.0) 02/07/24 07:54
Physical Exam
-
General: No apparent distress
Abdomen: Soft, slightly protuberant( improved since yesterday). Mild tenderness on palpation near the incision sites. Incision clean dry and intact. No open wound.
[2024-02-18 07:08] VITALS: BP 113/67
--- NOTE | 2024-02-18 07:11 | W.PN.HOSP.TC ---
Today's Communication/Plan
-
diet as per surgery
observe
Assessment / Plan
Assessment / Plan
Physical Exam
General: No pallor, cyanosis, or jaundice.
HEENT: Throat clear. Normocephalic atraumatic
NECK: Supple. No JVD Carotid Bruits
RESPIRATORY: Lungs clear to auscultation. No crackles wheezes stridor
CVS: S1, S2 normal. RRR. No murmur, rub or gallop.
ABDOMEN: midline aquacell dressing noted, non distended
EXTREMITIES: No peripheral cyanosis or edema.
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
83M DM HLD Hypothyroidism pancreatic Ca s/p pancreatic Tail resection Splenectomy p/w progressive abd pain constipation nausea last bowel movement [address] concerning for SBO. Patient comfortable pain well controlled after prn antinausea and
mpain medications given in ED. VSS
Small Bowel Obstruction likely secondary to dilution versus malignancy with adhesions
-Abd X-Rays appreciated
-s/p status post diagnostic laparoscopy with exploratory laparotomy and small bowel resection. Op finding of density lesion primarily redoing the upper abdomen. Concern for metastatic disease within the abdominal wall causing small bowel
obstruction leading to resection of 30 cm of small bowel incorporating mass with primary anastomosis. Pelvic metastases causing kinking of TI, left lysis was performed.
-Passing flatulence bedside in clinic with diet. IV fluid rate decreased.
-Zosyn DCed after 24h
Leukocytosis likely secondary stress postop reaction
-Patient continues with incentive spirometry. Afebrile.
-resolved.
Anemia with drop in hemoglobin likely dilutional with aggressive IV fluids
-Lovenox briefly held. Trend H&H. stable
Elevated creatinine suspected acute kidney injury
-DC Toradol. Increase IV fluid to match output of NG tube.
-Avoid net negative balance. Monitor urinary output
-Creatinine improved. Owens catheter out and passed voiding trial
Diabetes Mellitus
-hold metformin as on only clears for now
-Monitor sugars and continue coverage insulin
Hyperlipidemia
-hold atorvastatin
Hypothyroidism
-hold synthroid
Pancreatic Cancer s/p Resection and Chemotherapy
-CA 19-9 trending upwards
-Due for EUS later this year
Oncology eval appreciated
BPH
-Hold finasteride as npo
DVT proph: lovenox
GI prophylaxis�PPI
Code Status: DNR
I spent a total of 40 minutes with the patient or on the floor. More than 50% of this time involved counseling and coordination of care.
Anticipated Discharge: Within 24 hours
Subjective/Interval History
-
Date of Service: February 18, 2024
Reports feeling well. Having bowel movements. Tolerating diet so far recently advanced to low residue
Objective Data
-
Labs:
Laboratory Results
02/18/24
06:00
WBC Pending
Hgb Pending
Hct Pending
Plt Count Pending
Sodium Pending
Potassium Pending
Chloride Pending
Carbon Dioxide Pending
BUN Pending
Creatinine Pending
Glucose Pending
Calcium Pending
Vital Signs:
Vital Signs
Temp Pulse Resp BP Pulse Ox
98.3 F 75 14 119/69 97
02/18/24 03:00 02/18/24 03:00 02/18/24 03:00 02/18/24 03:00 02/18/24 03:00
I&O
02/17/24 02/18/24 02/19/24
06:59 06:59 06:59
Intake Total 2980 / 2980 2200 / 2200
Output Total 1375 / 1375 300 / 300
Balance 1605 / 1605 1900 / 1900
[2024-02-18] MEDS: NOVOLOG FLEXPEN-LOW RESISTANCE SC (08:13)
[2024-02-18 08:14] LABS: Glucose - Point of Care 147 mg/dl (70-99)
[2024-02-18] MEDS: PROTONIX 40 MG PO (08:14)
[2024-02-18] MEDS: COSOPT EYE DROPS 1 DROP BOTH EYES ×2 (08:14→20:38)
[2024-02-18] MEDS: PROSCAR 5 MG PO (08:14)
[2024-02-18 09:08] LABS: % Basophils 0.4 % (0-2); % Eosinophils 13.5 % (0-6); % Immature Granulocytes 0.4 % (0-0.5); % Lymphocytes 20.6 % (20.5-51.1); % Monocytes 14.3 % (1.7-9.3); % Neutrophils 50.8 % (42.2-75.2); Absolute Eosinophils 1.2 10^3/uL (0-0.7); Absolute Lymphocytes 1.8 10^3/uL (1.2-3.4); Absolute Monocytes 1.2 10^3/uL (0.1-0.6); Absolute Neutrophils 4.3 10^3/uL (1.4-6.5); Hematocrit 25.8 % (39.0-52.0); Hemoglobin 8.9 g/dL (13.0-18.0); Mean Corp Hgb Conc. 34.5 g/dL (33.0-37.0); Mean Corpuscular Hgb 33.2 pg (27.0-31.0); Mean Corpuscular Volume 96.3 fL (80.0-94.0); Mean Platelet Volume 10.5 fL (7.4-10.4); Nucleated Red Blood Cells % 0 % (-); Platelet Count 397 10^3/uL (130-400); Red Blood Cell Count 2.68 10^6/uL (4.70-6.10); Red Cell Dist. Width 13.8 % (11.5-14.5); White Blood Cell Count 8.5 10^3/uL (4.8-10.8)
--- NOTE | 2024-02-18 09:57 | W.PN.ONC2 ---
Today's Communication / Plan
-
Close OP follow up 2-3 will be arranged upon discharge for treatment planning
Goals remain restorative
Impression
Impression
SBO, s/p laparoscopy, exploratory laparotomy, small bowel resection 02/11, path diagnostic for metastatic pancreatic ductal adenocarcinoma, well to moderately differentiated
post operative anemia
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
Previous 5-fluorouracil based chemotherapy unable to tolerate irinotecan
Hypothyroid
Hyperlipidemia
Glaucoma/cataracts
Small pulmonary nodules of unclear significance
Plan
Plan
SBO s/p laparoscopy, exploratory laparotomy, small bowel resection 02/11
I reviewed pathology with pt at bedside while his 2 daughters on speaker phone -diagnostic for metastatic pancreatic ductal adenocarcinoma, well to moderately differentiated -Will arrange OP follow up with Dr. Lopez to discuss clinical trial or
gemcitabine based systemic therapy
Pulmonary nodules too small to biopsy
check iron studies, retic, B12, folate, monitor for bleeding
Subjective/Objective
Chief Complaint
passing flatus, BM yesterday
Subjective
no new complaints
Vital Signs:
Vital Signs
Temp Pulse Resp BP Pulse Ox
98.1 F 79 16 113/67 97
02/18/24 07:08 02/18/24 07:08 02/18/24 07:08 02/18/24 07:08 02/18/24 07:08
Lab Results:
Laboratory Data
WBC 8.5 10^3/uL (4.8-10.8) 02/18/24 08:46
Hgb 8.9 g/dL (13.0-18.0) L 02/18/24 08:46
Plt Count 397 10^3/uL (130-400) 02/18/24 08:46
eGFR > 60.00 02/17/24 05:43
Physical Exam
HEENT: Moist Mucous Membranes; No Jaundice
Cardiology: S1 and S2
Pulmonary: Clear
GI: Soft (TTP, surgical site C/D/I)
Extremities: No Edema
Neuro: Non Focal
Review of Systems
Review of Systems
ROS notable for subjective, otherwise negative
[2024-02-18 10:34] LABS: Blood Urea Nitrogen 11 mg/dl (9-20); Calcium 8.6 mg/dl (8.4-10.2); Carbon Dioxide 29 mmol/L (22-30); Chloride 104 mmol/L (98-107); Estimated Creatinine Clearance 80 ml/min; Glucose 123 mg/dl (70-99); Magnesium 1.9 mg/dl (1.6-2.3); Phosphorus 2.5 mg/dl (2.5-4.5); Potassium 4.9 mmol/L (3.5-5.1); Sodium 136 mmol/L (135-145); eGFR > 60.00
[2024-02-18] MEDS: VITAMIN D3 (cholecalciferol) 20 MCG PO (12:28)
[2024-02-18 13:06] LABS: Glucose - Point of Care 153 mg/dl (70-99)
[2024-02-18] MEDS: NOVOLOG FLEXPEN-LOW RESISTANCE 1 UNITS SC ×2 (13:07→17:26)
--- NOTE | 2024-02-18 15:04 | CM ---
Discharge Plan of Care: Anticipate home with no needs.
[2024-02-18 15:20] VITALS: BP 124/67
[2024-02-18 17:11] LABS: Glucose - Point of Care 159 mg/dl (70-99)
[2024-02-18] MEDS: LOVENOX 40 MG SC (17:25)
[2024-02-18] MEDS: TYLENOL 650 MG PO (20:43)
[2024-02-18 21:30] LABS: Glucose - Point of Care 184 mg/dl (70-99)
[2024-02-18] MEDS: XALATAN OPHTHALMIC SOLUTION 1 DROP BOTH EYES (22:25)
[2024-02-18 23:10] VITALS: BP 114/61
[2024-02-19 06:00] VITALS: BMI 20.9
[2024-02-19] MEDS: SYNTHROID 50 MCG PO (06:08)
[2024-02-19 06:51] LABS: Reticulocyte Count 2.7 % (0.4-2.8)
[2024-02-19 07:10] VITALS: BP 129/63
--- NOTE | 2024-02-19 07:23 | W.PN.GS2 ---
Addendum entered and electronically signed by Pj Fair MD 02/19/24 09:14:
Patient seen and examined.
No major complaints. Abdominal pain well-controlled. No nausea or vomiting. Reports passing continued flatus, no bowel movement yesterday. Ambulating. Voiding.
Gen: NAD
Abd: soft, minimal tenderness, minimal distension, non-peritoneal, incision c/d/i - no erythema or drainage, mild ecchymosis
POD#7 s/p diagnostic laparoscopy, exploratory laparotomy, SBR, and lysis of adhesions for a malignant SBO
Doing well postop with signs of returning GI function-able to pass gas, 1 BM on 02/17/24 and continue to pass flatus
-Continue LRD until follow-up
-Encourage out of bed ambulation.
-Pain control: Tylenol as needed
-Miralax to help with the BM, recommend continue to use daily until preop BM routine achieved
-Clear for d/c from surgical standpoint- fu in 2-3 weeks in OP
Original Note:
Today's Communication / Plan
-
Continue LRD
okay for d/c from surgical standpoint
Assessment / Plan
-
83-year-old male with a history of pancreatic adenocarcinoma status post open distal pancreatectomy and splenectomy with adjuvant FOLFOX chemotherapy in September 2023 who presented on 02/07/2024 with abdominal pain found to have his first small bowel
obstruction adhesive versus malignant in the setting of a rising CA 19-9.
POD#7 s/p diagnostic laparoscopy, exploratory laparotomy, SBR, and lysis of adhesions for a malignant SBO
Doing well postop with signs of returning GI function-able to pass gas, 1 BM on 02/17/24 and continue to pass flatus
-Continue LRD for 2 weeks
-Encourage out of bed ambulation.
-Pain control: Tylenol as needed
-Miralax to help with the BM, recommend contqinue to use daily until preop BM routine achieved
-Clear for d/c from surgical standpoint- fu in 2-3 weeks in OP
Patient agree with the plan. Answered all questions.
- DVT ppx:lovenox. SCD's while in bed
- GI ppx: PPI
- Appreciate Oncology on board, Planning outpatient follow-up for discussions on chemotherapy.
Time Spent
Total Time Spent with Patient (in minutes): 15
Subjective Data
-
Date of Service: February 19, 2024
Interval events: Overall feeling much better, able to pass flatus, 1 BM on 02/17/24. Mild postoperative incisional discomfort, overall improving. Tolerating LRD. Does report some bloating but no worsening abdominal pain.
Objective Data
-
Intake and Output
02/18/24 02/19/24 02/20/24
06:59 06:59 06:59
Intake Total 2200 / 2200 1740 / 1740
Output Total 300 / 300 350 / 350
Balance 1900 / 1900 1390 / 1390
Intake:
Oral fluids 2040 / 2040 1740 / 1740
IV fluids (Total) 160 / 160
Output:
Urine, Voided 300 / 300 350 / 350
Other:
Number of approximated MODERATE 5 4
amounts of urine
Vital Signs
Temp Pulse Resp BP Pulse Ox
98.3 F 77 16 114/61 96
02/18/24 23:10 02/18/24 23:10 02/18/24 23:10 02/18/24 23:10 02/18/24 23:10
Lab Results
02/18/24 08:46
02/18/24 08:46
Calcium 8.6 mg/dl (8.4-10.2) 02/18/24 08:46
Phosphorus 2.5 mg/dl (2.5-4.5) 02/18/24 08:46
Magnesium 1.9 mg/dl (1.6-2.3) 02/18/24 08:46
Total Bilirubin 0.8 mg/dl (0.2-1.3) 02/07/24 07:54
AST 27 U/L (17-59) 02/07/24 07:54
ALT 17 U/L (0-50) 02/07/24 07:54
Alkaline Phosphatase 174 U/L (38-126) H 02/07/24 07:54
Total Protein 7.4 g/dl (6.3-8.2) 02/07/24 07:54
Albumin 4.3 g/dl (3.5-5.0) 02/07/24 07:54
Physical Exam
-
General: No apparent distress
Abdomen: Soft, slightly protuberant( improved since yesterday). Mild tenderness on palpation near the incision sites. Incision clean dry and intact. No open wound
[2024-02-19 07:29] LABS: Glucose - Point of Care 135 mg/dl (70-99)
--- NOTE | 2024-02-19 07:29 | W.PN.HOSP.TC ---
Addendum entered and electronically signed by Ottoniel Payne MD 02/19/24 17:00:
Mild Vit D deficiency
-supplementation started
Original Note:
Today's Communication/Plan
-
discharge
Assessment / Plan
Assessment / Plan
Physical Exam
General: No pallor, cyanosis, or jaundice.
HEENT: Throat clear. Normocephalic atraumatic
NECK: Supple. No JVD Carotid Bruits
RESPIRATORY: Lungs clear to auscultation. No crackles wheezes stridor
CVS: S1, S2 normal. RRR. No murmur, rub or gallop.
ABDOMEN: soft nontender bowel sounds present
EXTREMITIES: No peripheral cyanosis or edema.
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
83M DM HLD Hypothyroidism pancreatic Ca s/p pancreatic Tail resection Splenectomy p/w progressive abd pain constipation nausea last bowel movement [address] concerning for SBO. Patient comfortable pain well controlled after prn antinausea and
mpain medications given in ED. VSS
Small Bowel Obstruction likely secondary to dilution versus malignancy with adhesions
-Abd X-Rays appreciated
-s/p status post diagnostic laparoscopy with exploratory laparotomy and small bowel resection. Op finding of density lesion primarily redoing the upper abdomen. Concern for metastatic disease within the abdominal wall causing small bowel
obstruction leading to resection of 30 cm of small bowel incorporating mass with primary anastomosis. Pelvic metastases causing kinking of TI, left lysis was performed.
-Passing flatulence bedside in clinic with diet. Tolerating diet. IV fluid completed
-completed 24h post-operative zosyn infection prophylaxis
Leukocytosis likely secondary stress postop reaction
-Patient continues with incentive spirometry. Afebrile.
-resolved.
Anemia with drop in hemoglobin likely dilutional with aggressive IV fluids
Later exacerbated by acute blood loss anemia following procedure as above
Mild Iron Deficiency
Anemia of Chronic disease
-H&H stable trending up
-once IV iron prior to discharge
-PO Iron supplementation to start on discharge
ADRIAN resolved
-DC Toradol. Increase IV fluid to match output of NG tube.
-Avoid net negative balance. Monitor urinary output
-Creatinine improved. Owens catheter out and passed voiding trial
-Peak Cr 1.3 improved to baseline 0.7
Diabetes Mellitus
-Monitor sugars and continue coverage insulin
-ok to resume home Metformin on dishcarge
Hyperlipidemia
-resume atorvastatin
Hypothyroidism
-cont home synthroid
Pancreatic Cancer s/p Resection and Chemotherapy
-CA 19-9 trending upwards
-Oncology eval appreciated bowel resection pathology appreciated metastatic pancreatic ductal adenocarcinoma, close outpt follow up for treatment planning.
BPH
-Hold finasteride as npo
DVT proph: lovenox
GI prophylaxis�PPI
Code Status: DNR
Medically stable for discharge home with outpatient follow up recommendations.
Total Time Preparing Discharge __50 minutes including examination of the patient, summary of the hospital stay, instructions for continuing care to all relevant caregivers; and preparation of discharge records, prescriptions, and referral
forms if necessary.
Anticipated Discharge: Today
Subjective/Interval History
-
Date of Service: February 19, 2024
Seen and examined at bedside in no acute distress sitting up comfortably in chair. Tolerating low residue diet. Endorses bowel movements flatus. Reports overall feeling well. Eager to go home.
Objective Data
-
Vital Signs:
Vital Signs
Temp Pulse Resp BP Pulse Ox
98.3 F 77 16 114/61 96
02/18/24 23:10 02/18/24 23:10 02/18/24 23:10 02/18/24 23:10 02/18/24 23:10
I&O
02/18/24 02/19/24 02/20/24
06:59 06:59 06:59
Intake Total 2200 / 2200 1740 / 1740
Output Total 300 / 300 350 / 350
Balance 0 / 1899 1390 / 1390
[2024-02-19 07:31] LABS: Iron 37 ug/dl (49-181)
[2024-02-19] MEDS: NOVOLOG FLEXPEN-LOW RESISTANCE SC ×2 (07:31→11:17)
[2024-02-19 07:40] LABS: Percent Saturation 18 % (20-50); Total Iron Binding Capacity 199 ug/dl (261-462)
[2024-02-19] MEDS: MIRALAX 17 GRAMS PO (07:41)
[2024-02-19] MEDS: COSOPT EYE DROPS 1 DROP BOTH EYES (07:42)
[2024-02-19] MEDS: VITAMIN D3 (cholecalciferol) 20 MCG PO (07:42)
[2024-02-19] MEDS: PROTONIX 40 MG PO (07:42)
[2024-02-19] MEDS: PROSCAR 5 MG PO (07:42)
[2024-02-19 08:30] LABS: Folate 15.7 ng/ml (2.76-20); Vitamin B12 620 pg/ml (239-931)
[2024-02-19 11:19] LABS: Glucose - Point of Care 142 mg/dl (70-99)
[2024-02-19] MEDS: FERRLECIT 110 MG IV (13:47)
--- NOTE | 2024-02-19 14:29 | CM ---
Discharge Plan of Care: Anticipate home with no in-home needs. Outpatient chemo.
[2024-02-19 16:19] VITALS: BP 124/55
[2024-02-19] MEDS: NOVOLOG FLEXPEN-LOW RESISTANCE 1 UNITS SC (16:59)
[2024-02-19 17:00] LABS: Glucose - Point of Care 162 mg/dl (70-99)
[2024-02-19] MEDS: LOVENOX 40 MG SC (17:00)
[2024-02-19] MEDS: TYLENOL 650 MG PO (17:03)
--- NOTE | 2024-02-19 17:21 | W.DCSUMMARY ---
Discharge Summary
Discharge Data
Date of Admission: 02/07/24
Date of Discharge: 02/19/24
-
Pending Results: No
Discharge Plan
-
Patient Disposition: Home (Routine Discharge)
Discharge Diagnosis/Procedures: Small Bowel Obstruction secondary malignancy and adhesions
status post diagnostic laparoscopy with exploratory laparotomy and small bowel resection
Mild Iron Deficiency
Anemia of Chronic disease
Acute Kidney Injury resolved
Diabetes Mellitus
Hyperlipidemia
Hypothyroidism
Pancreatic Cancer s/p Resection and Chemotherapy
metastatic pancreatic ductal adenocarcinoma
Vitamin D deficiency
Condition: Fair
Diet: Low Fiber
Activity: No strenuous activity
Additional Activity: Do not lift over 15lbs for the next 4-6 weeks
Driving Restrictions: Not until seen by your Dr
Bathing Restrictions: OK to Shower
Blood Work: Repeat CBC with primary care provider in 1 week of discharge, Vitamin D level and iron studies in 1 month of discharge.
Wound Care: Wash your incisions gently with soap and water. The glue over your incisions will flake off on its own in 2-3 weeks.
Activity Restrictions/Additional Instructions:
Please follow up with your oncologist in 2-3 days of discharge, primary care provider in 1 week of discharge, and surgeon in 2-3 weeks of discharge.
Vitamin D supplement started for mild deficiency.
Iron supplementation started for mild Iron deficiency and anemia of chronic disease.
Miralax prescribed to promote regular bowel movements. Ok to convert to as needed when regular bowel movements is achieved. Hold if diarrhea.
Please take medications as prescribed/recommended and follow up with primary care provider and/or other healthcare provider involved in your care for refills and/or further adjustment to your medication regimen as necessary.
Referrals:
Yobany Lopez DO [Active] - in two to three days
Pj Fair MD [Active] - in two to three weeks
Mayito Silverio DO [Family Provider] - in one week
Prescriptions:
New
polyethylene glycol 3350 [HealthyLax] 17 gram Powder In Packet
17 g PO DAILY Qty: 30 0RF
Rx Instructions:
Hold if Diarrhea. Ok to discontinue if/when regular bowel movement function returns
ferrous sulfate [FeroSul] 325 mg (65 mg iron) Tablet
325 mg PO DAILY 30 Days Qty: 30 0RF
cholecalciferol (vitamin D3) [Vitamin D3] 10 mcg (400 unit) Tablet
20 mcg PO DAILY 30 Days Qty: 60 0RF
Continued
latanoprost 0.005 % Drops
1 drp BOTH EYES HS
atorvastatin 40 mg Tablet
40 mg PO QPM
levothyroxine 50 mcg Tablet
50 mcg PO DAILY@06
finasteride 5 mg Tablet
5 mg PO DAILY
famotidine [Pepcid] 20 mg Tablet
20 mg PO DAILYPRN PRN (Reason: gerd)
dorzolamide-timolol [Cosopt] 22.3-6.8 mg/mL Drops
1 drp BOTH EYES BID
metformin 500 mg Tablet Extended Release 24 Hr
500 mg PO QPM
docusate sodium [Colace] 100 mg Capsule
100 mg PO Q48H Qty: 0 0RF
Rx Instructions:
hold if diarrhea
Discharge Orders:
Discharge Patient (As Directed); Ordered 02/19/24
Ordered By: Ottoniel Payne
Discharge Date and Time
Print Language: BURUNDIAN
== END 2024-02-19 17:44 | disposition home or self-care (01) | DRG 330 ==
LOC: 2 SOUTH 13:20
PROVIDERS: Hospitalist; Nurse Practitioner Acute Care; Physician Assistant Medical; Registered Nurse; Surgery; ADMITTING PHYSICIAN Internal Medicine; CONSULT PHYSICIAN Internal Medicine Hematology & Oncology; CONSULT PHYSICIAN Surgery; EMERGENCY PHYSICIAN Emergency Medicine; FAMILY PHYSICIAN Internal Medicine
PROC: 0DB80ZZ Excision of Small Intestine, Open Approach (ICD-10-PCS; 2024-02-12)
PROC: 0WJG4ZZ Inspection of Peritoneal Cavity, Percutaneous Endoscopic Approach (ICD-10-PCS; 2024-02-12)
DX: K56.690 Other partial intestinal obstruction (principal); C78.4 Secondary malignant neoplasm of small intestine; N17.9 Acute kidney failure, unspecified; C79.89 Secondary malignant neoplasm of other specified sites; K56.51 Intestinal adhesions [bands], with partial obstruction; E03.9 Hypothyroidism, unspecified; E78.00 Pure hypercholesterolemia, unspecified; I10 Essential (primary) hypertension; Z66 Do not resuscitate; R91.8 Other nonspecific abnormal finding of lung field; K59.00 Constipation, unspecified; D63.0 Anemia in neoplastic disease; E55.9 Vitamin D deficiency, unspecified; E11.36 Type 2 diabetes mellitus with diabetic cataract; H40.9 Unspecified glaucoma; K21.9 Gastro-esophageal reflux disease without esophagitis; K04.7 Periapical abscess without sinus; Z92.21 Personal history of antineoplastic chemotherapy; Z53.31 Laparoscopic surgical procedure converted to open procedure; Z90.411 Acquired partial absence of pancreas; Z90.81 Acquired absence of spleen; Z85.07 Personal history of malignant neoplasm of pancreas; Z79.890 Hormone replacement therapy; Z79.84 Long term (current) use of oral hypoglycemic drugs
CPT/HCPCS: 88307; 88309; 74018; 74177; 80048; 80053; 81003; 81015; 82306; 82570; 82607; 82728; 82746; 82962; 83036; 83540; 83550; 83690; 83735; 84100; 84300; 84443; 85025; 85027; 85045; 86850; 86900; 86901; 96361; 96374; 96375; 96376; 99285; C1776; J2916; Q9967

== ENCOUNTER → 2024-03-05 08:45 | Outpatient (REF) | payer MEDICARE, OTHER, SELFPAY ==
[2024-03-05 10:05] LABS: % Basophils 0.5 % (0-2); % Eosinophils 6.7 % (0-6); % Immature Granulocytes 0.3 % (0-0.5); % Neutrophils 57.5 % (42.2-75.2); Absolute Basophils 0.1 10^3/uL (0-0.2); Absolute Eosinophils 0.7 10^3/uL (0-0.7); Absolute Monocytes 1.4 10^3/uL (0.1-0.6); Absolute Neutrophils 5.6 10^3/uL (1.4-6.5); Hemoglobin 9.9 g/dL (13.0-18.0); Mean Corpuscular Hgb 32.6 pg (27.0-31.0); Mean Corpuscular Volume 98.7 fL (80.0-94.0); Mean Platelet Volume 9.2 fL (7.4-10.4); Nucleated Red Blood Cells % 0 % (-); Platelet Count 676 10^3/uL (130-400); Red Blood Cell Count 3.04 10^6/uL (4.70-6.10); Red Cell Dist. Width 15.9 % (11.5-14.5); White Blood Cell Count 9.7 10^3/uL (4.8-10.8)
[2024-03-05 11:24] LABS: ALT (SGPT) 15 U/L (0-50); AST (SGOT) 28 U/L (17-59); Alkaline Phosphatase 208 U/L (38-126); Direct Bilirubin 0.3 mg/dl (0.0-0.4); Total Bilirubin 0.9 mg/dl (0.2-1.3); Total Protein 6.8 g/dl (6.3-8.2)
[2024-03-07 05:12] LABS: CA 19-9 54 U/mL (<=35)
== END ==
LOC: REG 08:45
PROVIDERS: ATTENDING PHYSICIAN Internal Medicine Hematology & Oncology; FAMILY PHYSICIAN Internal Medicine
DX: C25.2 Malignant neoplasm of tail of pancreas (principal); R53.83 Other fatigue
CPT/HCPCS: 36415; 80076; 85025; 86301

== ENCOUNTER → 2024-03-09 15:22 | Outpatient (REF) | payer MEDICARE, SELFPAY ==
[2024-03-09 12:45] LABS: ALT (SGPT) 12 U/L (0-50); AST (SGOT) 22 U/L (17-59); Albumin 3.9 g/dl (3.5-5.0); Alkaline Phosphatase 197 U/L (38-126); Blood Urea Nitrogen 18 mg/dl (9-20); Calcium 9.3 mg/dl (8.4-10.2); Carbon Dioxide 27 mmol/L (22-30); Chloride 101 mmol/L (98-107); Glucose 119 mg/dl (70-99); Potassium 4.7 mmol/L (3.5-5.1); Sodium 139 mmol/L (135-145); Total Bilirubin 1.1 mg/dl (0.2-1.3); Total Protein 6.9 g/dl (6.3-8.2); eGFR > 60.00
[2024-03-09 12:49] LABS: % Basophils 0.4 % (0-2); % Immature Granulocytes 0.3 % (0-0.5); % Lymphocytes 21.3 % (20.5-51.1); % Monocytes 14.3 % (1.7-9.3); % Neutrophils 58.7 % (42.2-75.2); Absolute Eosinophils 0.5 10^3/uL (0-0.7); Absolute Lymphocytes 2.1 10^3/uL (1.2-3.4); Absolute Monocytes 1.4 10^3/uL (0.1-0.6); Absolute Neutrophils 5.7 10^3/uL (1.4-6.5); Hematocrit 28.5 % (39.0-52.0); Hemoglobin 9.7 g/dL (13.0-18.0); Mean Corpuscular Hgb 33.3 pg (27.0-31.0); Mean Corpuscular Volume 97.9 fL (80.0-94.0); Mean Platelet Volume 9.7 fL (7.4-10.4); Nucleated Red Blood Cells % 0 % (-); Platelet Count 544 10^3/uL (130-400); Red Blood Cell Count 2.91 10^6/uL (4.70-6.10); Red Cell Dist. Width 15.1 % (11.5-14.5); White Blood Cell Count 9.7 10^3/uL (4.8-10.8)
== END ==
LOC: OIDL 15:22
PROVIDERS: ATTENDING PHYSICIAN Internal Medicine Hematology & Oncology
DX: C25.2 Malignant neoplasm of tail of pancreas (principal)
CPT/HCPCS: 80053; 85025

== ENCOUNTER → 2024-03-10 11:28 | Outpatient (REF) | payer MEDICARE, SELFPAY ==
[2024-03-10 13:04] LABS: Iron 40 ug/dl (49-181)
[2024-03-10 13:15] LABS: Percent Saturation 15 % (20-50); Total Iron Binding Capacity 264 ug/dl (261-462)
== END ==
LOC: OIDL 11:28
PROVIDERS: ATTENDING PHYSICIAN Internal Medicine Hematology & Oncology
DX: C25.2 Malignant neoplasm of tail of pancreas (principal); R53.83 Other fatigue
CPT/HCPCS: 82728; 83540; 83550

== ENCOUNTER → 2024-03-17 07:11 | Outpatient (REF) | payer MEDICARE, SELFPAY ==
[2024-03-17 08:26] LABS: % Basophils 0.2 % (0-2); % Eosinophils 7.9 % (0-6); % Immature Granulocytes 1.9 % (0-0.5); % Lymphocytes 28.1 % (20.5-51.1); % Monocytes 4.2 % (1.7-9.3); % Neutrophils 57.7 % (42.2-75.2); Absolute Eosinophils 0.5 10^3/uL (0-0.7); Absolute Immature Granulocytes 0.1 10^3/uL (0-0.05); Absolute Lymphocytes 1.6 10^3/uL (1.2-3.4); Absolute Monocytes 0.2 10^3/uL (0.1-0.6); Absolute Neutrophils 3.3 10^3/uL (1.4-6.5); Hematocrit 29.2 % (39.0-52.0); Hemoglobin 9.5 g/dL (13.0-18.0); Mean Corp Hgb Conc. 32.5 g/dL (33.0-37.0); Mean Corpuscular Volume 98.3 fL (80.0-94.0); Mean Platelet Volume 10.3 fL (7.4-10.4); Nucleated Red Blood Cells % 0 % (-); Platelet Count 390 10^3/uL (130-400); Red Blood Cell Count 2.97 10^6/uL (4.70-6.10); Red Cell Dist. Width 14.4 % (11.5-14.5); White Blood Cell Count 5.7 10^3/uL (4.8-10.8)
[2024-03-17 08:49] LABS: Phosphorus 3.3 mg/dl (2.5-4.5)
[2024-03-17 08:52] LABS: ALT (SGPT) 16 U/L (0-50); AST (SGOT) 22 U/L (17-59); Albumin 3.9 g/dl (3.5-5.0); Alkaline Phosphatase 201 U/L (38-126); Blood Urea Nitrogen 16 mg/dl (9-20); Calcium 9.5 mg/dl (8.4-10.2); Carbon Dioxide 28 mmol/L (22-30); Chloride 103 mmol/L (98-107); Glucose 163 mg/dl (70-99); Potassium 5.9 mmol/L (3.5-5.1); Sodium 140 mmol/L (135-145); Total Bilirubin 0.5 mg/dl (0.2-1.3); eGFR > 60.00
== END ==
LOC: REG 07:11
PROVIDERS: ATTENDING PHYSICIAN Internal Medicine Hematology & Oncology; FAMILY PHYSICIAN Internal Medicine
DX: E11.9 Type 2 diabetes mellitus without complications (principal); C25.2 Malignant neoplasm of tail of pancreas; R53.83 Other fatigue
CPT/HCPCS: 36415; 80053; 84100; 85025

== ENCOUNTER → 2024-03-20 13:10 | Outpatient (REF) | payer MEDICARE, OTHER, SELFPAY ==
[2024-03-20 14:06] LABS: % Basophils 0.1 % (0-2); % Eosinophils 0.4 % (0-6); % Immature Granulocytes 0.5 % (0-0.5); % Lymphocytes 31.5 % (20.5-51.1); % Monocytes 1.7 % (1.7-9.3); % Neutrophils 65.8 % (42.2-75.2); Absolute Lymphocytes 2.4 10^3/uL (1.2-3.4); Absolute Monocytes 0.1 10^3/uL (0.1-0.6); Absolute Neutrophils 5.1 10^3/uL (1.4-6.5); Hematocrit 27.5 % (39.0-52.0); Mean Corp Hgb Conc. 32.7 g/dL (33.0-37.0); Mean Corpuscular Volume 97.9 fL (80.0-94.0); Mean Platelet Volume 11.4 fL (7.4-10.4); Nucleated Red Blood Cells % 0.8 % (-); Platelet Count 313 10^3/uL (130-400); Red Blood Cell Count 2.81 10^6/uL (4.70-6.10); Red Cell Dist. Width 14.3 % (11.5-14.5); White Blood Cell Count 7.7 10^3/uL (4.8-10.8)
[2024-03-20 14:15] LABS: ALT (SGPT) 24 U/L (0-50); AST (SGOT) 35 U/L (17-59); Alkaline Phosphatase 176 U/L (38-126); Blood Urea Nitrogen 18 mg/dl (9-20); Calcium 9.5 mg/dl (8.4-10.2); Carbon Dioxide 29 mmol/L (22-30); Chloride 102 mmol/L (98-107); Glucose 139 mg/dl (70-99); Potassium 5.5 mmol/L (3.5-5.1); Sodium 140 mmol/L (135-145); Total Bilirubin 0.7 mg/dl (0.2-1.3); Total Protein 6.7 g/dl (6.3-8.2); eGFR > 60.00
== END ==
LOC: REG 13:10
PROVIDERS: ATTENDING PHYSICIAN Internal Medicine Hematology & Oncology; FAMILY PHYSICIAN Internal Medicine
DX: C25.2 Malignant neoplasm of tail of pancreas (principal); R53.83 Other fatigue; D50.9 Iron deficiency anemia, unspecified; G64 Other disorders of peripheral nervous system; E87.5 Hyperkalemia; T88.7XXA Unspecified adverse effect of drug or medicament, initial encounter; T45.1X5A Adverse effect of antineoplastic and immunosuppressive drugs, initial encounter
CPT/HCPCS: 36415; 80053; 85025

== ENCOUNTER → 2024-03-24 09:26 | Outpatient (REF) | payer MEDICARE, OTHER, SELFPAY ==
[2024-03-24 10:36] LABS: Hematocrit 30.5 % (39.0-52.0); Mean Corp Hgb Conc. 32.8 g/dL (33.0-37.0); Mean Corpuscular Hgb 31.3 pg (27.0-31.0); Mean Corpuscular Volume 95.3 fL (80.0-94.0); Platelet Count 315 10^3/uL (130-400); White Blood Cell Count 2.5 10^3/uL (4.8-10.8)
[2024-03-24 10:51] LABS: ALT (SGPT) 27 U/L (0-50); AST (SGOT) 30 U/L (17-59); Albumin 3.9 g/dl (3.5-5.0); Alkaline Phosphatase 166 U/L (38-126); Blood Urea Nitrogen 17 mg/dl (9-20); Calcium 9.5 mg/dl (8.4-10.2); Carbon Dioxide 27 mmol/L (22-30); Chloride 99 mmol/L (98-107); Glucose 178 mg/dl (70-99); Potassium 5.1 mmol/L (3.5-5.1); Sodium 137 mmol/L (135-145); Total Bilirubin 0.8 mg/dl (0.2-1.3); Total Protein 6.7 g/dl (6.3-8.2); eGFR > 60.00
[2024-03-24 12:27] LABS: Segmented Neutrophils 39 % (42-75)
[2024-03-24 12:28] LABS: Eosinophils 6 % (0-6); Lymphocytes 48 % (20-51); Monocytes 4 % (2-9); Total Cells Counted 100
[2024-03-24 12:29] LABS: Normal RBC Morphology No; Platelets Checked Yes
[2024-03-24 12:30] LABS: Acanthocytes Slight; Howell Jolly Bodies 1+; Macrocytosis Slight; Target Cells Slight
[2024-03-24 13:57] LABS: Band Neutrophils 0 % (0-3)
[2024-03-24 14:00] LABS: Absolute Neutrophils -Man Diff 0.9 10^3/uL (1.4-6.5)
== END ==
LOC: REG 09:26
PROVIDERS: ATTENDING PHYSICIAN Internal Medicine Hematology & Oncology; FAMILY PHYSICIAN Internal Medicine
DX: C25.2 Malignant neoplasm of tail of pancreas (principal); R53.83 Other fatigue; D50.9 Iron deficiency anemia, unspecified; G64 Other disorders of peripheral nervous system; E87.5 Hyperkalemia; T88.7XXA Unspecified adverse effect of drug or medicament, initial encounter; T45.1X5A Adverse effect of antineoplastic and immunosuppressive drugs, initial encounter
CPT/HCPCS: 36415; 80053; 85025

== ENCOUNTER → 2024-03-28 09:42 | Outpatient (REF) | payer MEDICARE, OTHER, SELFPAY ==
[2024-03-28 10:24] LABS: % Basophils 1.2 % (0-2); % Eosinophils 5.1 % (0-6); % Immature Granulocytes 0.6 % (0-0.5); % Lymphocytes 37.8 % (20.5-51.1); % Monocytes 18.6 % (1.7-9.3); % Neutrophils 36.7 % (42.2-75.2); Absolute Basophils 0.1 10^3/uL (0-0.2); Absolute Eosinophils 0.3 10^3/uL (0-0.7); Absolute Lymphocytes 1.9 10^3/uL (1.2-3.4); Absolute Neutrophils 1.9 10^3/uL (1.4-6.5); Hematocrit 28.3 % (39.0-52.0); Hemoglobin 9.7 g/dL (13.0-18.0); Mean Corp Hgb Conc. 34.3 g/dL (33.0-37.0); Mean Corpuscular Hgb 31.6 pg (27.0-31.0); Mean Corpuscular Volume 92.2 fL (80.0-94.0); Mean Platelet Volume 10.4 fL (7.4-10.4); Nucleated Red Blood Cells % 1.8 % (-); Platelet Count 395 10^3/uL (130-400); Red Blood Cell Count 3.07 10^6/uL (4.70-6.10); Red Cell Dist. Width 14.3 % (11.5-14.5); White Blood Cell Count 5.1 10^3/uL (4.8-10.8)
[2024-03-28 10:50] LABS: ALT (SGPT) 21 U/L (0-50); AST (SGOT) 27 U/L (17-59); Albumin 3.8 g/dl (3.5-5.0); Alkaline Phosphatase 186 U/L (38-126); Blood Urea Nitrogen 18 mg/dl (9-20); Calcium 9.6 mg/dl (8.4-10.2); Carbon Dioxide 25 mmol/L (22-30); Chloride 101 mmol/L (98-107); Glucose 127 mg/dl (70-99); Potassium 5.2 mmol/L (3.5-5.1); Sodium 137 mmol/L (135-145); Total Bilirubin 0.4 mg/dl (0.2-1.3); Total Protein 6.5 g/dl (6.3-8.2); eGFR > 60.00
== END ==
LOC: REG 09:42
PROVIDERS: ATTENDING PHYSICIAN Internal Medicine Hematology & Oncology; FAMILY PHYSICIAN Internal Medicine
DX: C25.2 Malignant neoplasm of tail of pancreas (principal); R53.83 Other fatigue; D50.9 Iron deficiency anemia, unspecified; G64 Other disorders of peripheral nervous system; E87.5 Hyperkalemia; T88.7XXA Unspecified adverse effect of drug or medicament, initial encounter; T45.1X5A Adverse effect of antineoplastic and immunosuppressive drugs, initial encounter
CPT/HCPCS: 36415; 80053; 85025

== ENCOUNTER → 2024-04-07 16:13 | Outpatient (REF) | payer MEDICARE, OTHER, SELFPAY ==
[2024-04-07 15:57] LABS: Phosphorus 1.9 mg/dl (2.5-4.5)
[2024-04-07 16:07] LABS: % Basophils 0.1 % (0-2); % Eosinophils 0.4 % (0-6); % Lymphocytes 5.8 % (20.5-51.1); % Neutrophils 61.7 % (42.2-75.2); Absolute Basophils 0.1 10^3/uL (0-0.2); Absolute Eosinophils 0.2 10^3/uL (0-0.7); Absolute Immature Granulocytes 10.3 10^3/uL (0-0.05); Absolute Lymphocytes 3.5 10^3/uL (1.2-3.4); Absolute Monocytes 9.1 10^3/uL (0.1-0.6); Absolute Neutrophils 37.2 10^3/uL (1.4-6.5); Hematocrit 27.6 % (39.0-52.0); Hemoglobin 9.3 g/dL (13.0-18.0); Mean Corp Hgb Conc. 33.7 g/dL (33.0-37.0); Mean Corpuscular Hgb 31.6 pg (27.0-31.0); Mean Corpuscular Volume 93.9 fL (80.0-94.0); Mean Platelet Volume 11.4 fL (7.4-10.4); Nucleated Red Blood Cells % 0.8 % (-); Platelet Count 342 10^3/uL (130-400); Red Blood Cell Count 2.94 10^6/uL (4.70-6.10); Red Cell Dist. Width 15.9 % (11.5-14.5); White Blood Cell Count 60.4 10^3/uL (4.8-10.8)
== END ==
LOC: OIDL 16:13
PROVIDERS: ATTENDING PHYSICIAN Internal Medicine Hematology & Oncology
DX: C25.2 Malignant neoplasm of tail of pancreas (principal)
CPT/HCPCS: 84100; 85025

== ENCOUNTER → 2024-04-11 08:05 | Outpatient (REF) | payer MEDICARE, OTHER, SELFPAY ==
[2024-04-11 09:13] LABS: % Basophils 0.1 % (0-2); % Eosinophils 0.8 % (0-6); % Immature Granulocytes 7.8 % (0-0.5); % Lymphocytes 7.7 % (20.5-51.1); % Monocytes 6.4 % (1.7-9.3); % Neutrophils 77.2 % (42.2-75.2); Absolute Basophils 0.1 10^3/uL (0-0.2); Absolute Eosinophils 0.4 10^3/uL (0-0.7); Absolute Monocytes 3.3 10^3/uL (0.1-0.6); Absolute Neutrophils 39.5 10^3/uL (1.4-6.5); Hematocrit 29.8 % (39.0-52.0); Hemoglobin 9.9 g/dL (13.0-18.0); Mean Corp Hgb Conc. 33.2 g/dL (33.0-37.0); Mean Corpuscular Hgb 32.8 pg (27.0-31.0); Mean Corpuscular Volume 98.7 fL (80.0-94.0); Mean Platelet Volume 11.3 fL (7.4-10.4); Nucleated Red Blood Cells % 2.2 % (-); Platelet Count 284 10^3/uL (130-400); Red Blood Cell Count 3.02 10^6/uL (4.70-6.10); Red Cell Dist. Width 17.8 % (11.5-14.5); White Blood Cell Count 51.2 10^3/uL (4.8-10.8)
[2024-04-11 10:10] LABS: ALT (SGPT) 24 U/L (0-50); AST (SGOT) 25 U/L (17-59); Albumin 3.7 g/dl (3.5-5.0); Alkaline Phosphatase 311 U/L (38-126); Blood Urea Nitrogen 13 mg/dl (9-20); Calcium 8.9 mg/dl (8.4-10.2); Carbon Dioxide 26 mmol/L (22-30); Chloride 104 mmol/L (98-107); Glucose 140 mg/dl (70-99); Potassium 4.5 mmol/L (3.5-5.1); Sodium 142 mmol/L (135-145); Total Bilirubin 0.7 mg/dl (0.2-1.3); Total Protein 6.2 g/dl (6.3-8.2); eGFR > 60.00
== END ==
LOC: REG 08:05
PROVIDERS: ATTENDING PHYSICIAN Internal Medicine Hematology & Oncology; FAMILY PHYSICIAN Internal Medicine
DX: C25.2 Malignant neoplasm of tail of pancreas (principal); R53.83 Other fatigue; D50.9 Iron deficiency anemia, unspecified; G64 Other disorders of peripheral nervous system; E87.5 Hyperkalemia; T88.7XXA Unspecified adverse effect of drug or medicament, initial encounter; T45.1X5A Adverse effect of antineoplastic and immunosuppressive drugs, initial encounter
CPT/HCPCS: 36415; 80053; 85025

== ENCOUNTER → 2024-04-14 12:04 | Outpatient (REF) | payer MEDICARE, OTHER, SELFPAY ==
[2024-04-14 12:07] LABS: % Basophils 0.2 % (0-2); % Eosinophils 1.9 % (0-6); % Immature Granulocytes 2.7 % (0-0.5); % Lymphocytes 5.5 % (20.5-51.1); % Monocytes 7.2 % (1.7-9.3); % Neutrophils 82.5 % (42.2-75.2); Absolute Basophils 0.1 10^3/uL (0-0.2); Absolute Eosinophils 0.6 10^3/uL (0-0.7); Absolute Immature Granulocytes 0.9 10^3/uL (0-0.05); Absolute Lymphocytes 1.8 10^3/uL (1.2-3.4); Absolute Monocytes 2.3 10^3/uL (0.1-0.6); Absolute Neutrophils 26.2 10^3/uL (1.4-6.5); Hematocrit 28.5 % (39.0-52.0); Hemoglobin 9.4 g/dL (13.0-18.0); Mean Corpuscular Hgb 31.9 pg (27.0-31.0); Mean Corpuscular Volume 96.6 fL (80.0-94.0); Nucleated Red Blood Cells % 0.2 % (-); Platelet Count 393 10^3/uL (130-400); Red Blood Cell Count 2.95 10^6/uL (4.70-6.10); Red Cell Dist. Width 17.9 % (11.5-14.5); White Blood Cell Count 31.8 10^3/uL (4.8-10.8)
[2024-04-14 12:16] LABS: Phosphorus 2.7 mg/dl (2.5-4.5)
[2024-04-16 00:41] LABS: CA 19-9 45 U/mL (<=35)
== END ==
LOC: OIDL 12:04
PROVIDERS: ATTENDING PHYSICIAN Nurse Practitioner Adult Health
DX: C25.2 Malignant neoplasm of tail of pancreas (principal); R53.83 Other fatigue; D50.9 Iron deficiency anemia, unspecified; G64 Other disorders of peripheral nervous system; E87.5 Hyperkalemia; T88.7XXA Unspecified adverse effect of drug or medicament, initial encounter; T45.1X5A Adverse effect of antineoplastic and immunosuppressive drugs, initial encounter
CPT/HCPCS: 84100; 85025; 86301

== ENCOUNTER → 2024-04-18 08:35 | Outpatient (REF) | payer MEDICARE, OTHER, SELFPAY ==
[2024-04-18 09:07] LABS: % Basophils 0.3 % (0-2); % Eosinophils 2.2 % (0-6); % Immature Granulocytes 0.6 % (0-0.5); % Lymphocytes 6.4 % (20.5-51.1); % Monocytes 2.3 % (1.7-9.3); % Neutrophils 88.2 % (42.2-75.2); Absolute Eosinophils 0.2 10^3/uL (0-0.7); Absolute Immature Granulocytes 0.1 10^3/uL (0-0.05); Absolute Lymphocytes 0.7 10^3/uL (1.2-3.4); Absolute Monocytes 0.2 10^3/uL (0.1-0.6); Hematocrit 29.3 % (39.0-52.0); Hemoglobin 9.8 g/dL (13.0-18.0); Mean Corp Hgb Conc. 33.4 g/dL (33.0-37.0); Mean Corpuscular Hgb 33.1 pg (27.0-31.0); Mean Platelet Volume 11.7 fL (7.4-10.4); Nucleated Red Blood Cells % 0 % (-); Platelet Count 363 10^3/uL (130-400); Red Blood Cell Count 2.96 10^6/uL (4.70-6.10); Red Cell Dist. Width 17.9 % (11.5-14.5); White Blood Cell Count 10.3 10^3/uL (4.8-10.8)
[2024-04-18 09:35] LABS: ALT (SGPT) 56 U/L (0-50); AST (SGOT) 46 U/L (17-59); Albumin 3.7 g/dl (3.5-5.0); Alkaline Phosphatase 220 U/L (38-126); Blood Urea Nitrogen 15 mg/dl (9-20); Calcium 9.3 mg/dl (8.4-10.2); Carbon Dioxide 27 mmol/L (22-30); Chloride 104 mmol/L (98-107); Glucose 160 mg/dl (70-99); Potassium 5.1 mmol/L (3.5-5.1); Sodium 138 mmol/L (135-145); Total Bilirubin 0.7 mg/dl (0.2-1.3); eGFR > 60.00
== END ==
LOC: REG 08:35
PROVIDERS: ATTENDING PHYSICIAN Internal Medicine Hematology & Oncology; FAMILY PHYSICIAN Internal Medicine
DX: C25.2 Malignant neoplasm of tail of pancreas (principal); R53.83 Other fatigue; D50.9 Iron deficiency anemia, unspecified; G64 Other disorders of peripheral nervous system; E87.5 Hyperkalemia; T88.7XXA Unspecified adverse effect of drug or medicament, initial encounter; T45.1X5A Adverse effect of antineoplastic and immunosuppressive drugs, initial encounter
CPT/HCPCS: 36415; 80053; 85025

== ENCOUNTER 2024-04-26 12:50 | Emergency (ER) | payer MEDICARE, OTHER, SELFPAY ==
[2024-04-26] VITALS (7 sets, daily range): BP systolic 108–124; BP diastolic 42–75; BMI 19.4
[2024-04-26 13:41] LABS: ALT (SGPT) 48 U/L (0-50); AST (SGOT) 34 U/L (17-59); Albumin 3.5 g/dl (3.5-5.0); Alkaline Phosphatase 222 U/L (38-126); Blood Urea Nitrogen 15 mg/dl (9-20); Calcium 8.4 mg/dl (8.4-10.2); Carbon Dioxide 23 mmol/L (22-30); Chloride 96 mmol/L (98-107); Glucose 175 mg/dl (70-99); Lipase 35 U/L (23-300); Potassium 4.8 mmol/L (3.5-5.1); Sodium 129 mmol/L (135-145); Total Bilirubin 1.1 mg/dl (0.2-1.3); Total Protein 5.8 g/dl (6.3-8.2); eGFR > 60.00
[2024-04-26 13:45] LABS: Hematocrit 28.6 % (39.0-52.0); Hemoglobin 9.7 g/dL (13.0-18.0); Mean Corp Hgb Conc. 33.9 g/dL (33.0-37.0); Mean Corpuscular Hgb 31.9 pg (27.0-31.0); Mean Corpuscular Volume 94.1 fL (80.0-94.0); Mean Platelet Volume 11.3 fL (7.4-10.4); Platelet Count 236 10^3/uL (130-400); Red Blood Cell Count 3.04 10^6/uL (4.70-6.10); Red Cell Dist. Width 17.2 % (11.5-14.5); White Blood Cell Count 1.9 10^3/uL (4.8-10.8)
[2024-04-26 14:37] LABS: % Basophils 1.1 % (0-2); % Immature Granulocytes 1.1 % (0-0.5); % Lymphocytes 32.6 % (20.5-51.1); % Monocytes 4.3 % (1.7-9.3); % Neutrophils 60.9 % (42.2-75.2); Absolute Lymphocytes 0.6 10^3/uL (1.2-3.4); Absolute Monocytes 0.1 10^3/uL (0.1-0.6); Absolute Neutrophils 1.1 10^3/uL (1.4-6.5); Nucleated Red Blood Cells % 2.1 % (-)
--- NOTE | 2024-04-26 15:26 | ED.GENMED ---
History of Present Illness
General
Chief Complaint: Numbness
Source: patient
Exam Limitations: none
Time Seen by Provider: 04/26/24 15:06
History of Present Illness
History of Present Illness:
84-year-old male with known history of pancreatic cancer received chemotherapy last week presents with progressive weakness since then. He states he cannot walk more than several steps secondary to his weakness. He notes ongoing numbness to the
hands and feet. He also notes abdominal discomfort. He notes it as a burning sensation to the lower abdomen. He was here couple months ago for small bowel obstruction ultimately requiring small bowel resection and exploratory laparotomy. His
last bowel movement was about 3 days ago. He is slightly nauseous without vomiting. He notes a decreased appetite.
Past History
Past History
ED Past Medical History: Cancer (Pancreatic), HTN, Hypercholesterolemia and Hypothyroidism
ED Past Surgical History: Other (Pancreatic tail resection)
Social History
Tobacco: Non-smoker
Alcohol: None
Personal:
Living: with family
Employment: Retired
Phy Exam
Physical Exam
Physical Exam:
General: Slightly cachectic appearing male no acute respiratory distress
HEENT: Normocephalic atraumatic
Heart: Regular rate and rhythm no murmurs
Lungs: Clear no wheeze
Abdomen: Slightly firm and tender to the lower abdomen slightly distended. Bowel sounds noted no guarding
Extremities: No cyanosis or edema
Skin: Warm no rash
Course
Orders/Labs/Results
Orders:
Orders
04/26/24 12:58
Electrocardiogram (*1) Urgent
Reason for Study: Tachycardia
EKG- Treatment ONCE
04/26/24 13:10
Complete Blood Count/With Diff Urgent
Comprehensive Metabolic Panel Urgent
Lipase Urgent
04/26/24 15:24
0.9% Sodium Chloride 1000 ml [Nss] 1,000 ml IV BOLUS
Ondansetron Injectable [Zofran] 4 mg IV NOW STA
04/26/24 15:25
CT Abd/pelvis W Iv Cont Urgent
Comment:
Reason For Exam: abd pain
04/26/24 16:03
Lactic Acid Urgent
04/26/24 16:19
Ketorolac [Toradol] 15 mg IV NOW STA
Abnormal Lab Results
04/26/24
13:10
WBC 1.9 L* 10^3/uL
(4.8-10.8)
RBC 3.04 L 10^6/uL
(4.70-6.10)
Hgb 9.7 L g/dL
(13.0-18.0)
Hct 28.6 L %
(39.0-52.0)
MCV 94.1 H fL
(80.0-94.0)
MCH 31.9 H pg
(27.0-31.0)
RDW 17.2 H %
(11.5-14.5)
MPV 11.3 H fL
(7.4-10.4)
Absolute Neuts (auto) 1.1 L 10^3/uL
(1.4-6.5)
Absolute Lymphs (auto) 0.6 L 10^3/uL
(1.2-3.4)
Immature Gran % 1.1 H %
(0-0.5)
Sodium 129 L mmol/L
(135-145)
Chloride 96 L mmol/L
(98-107)
Glucose 175 H mg/dl
(70-99)
Alkaline Phosphatase 222 H U/L
(38-126)
Total Protein 5.8 L g/dl
(6.3-8.2)
04/26/24 13:10
04/26/24 13:10
Vital Signs
Initial and Last Documented VS:
Initial Vital Signs
Temp Pulse Resp BP Pulse Ox
99.1 F 132 18 116/75 99
04/26/24 12:53 04/26/24 12:53 04/26/24 12:53 04/26/24 12:53 04/26/24 12:53
Last Documented Vital Signs
Temp Pulse Resp BP Pulse Ox
99.1 F 132 18 116/75 99
04/26/24 12:53 04/26/24 12:53 04/26/24 12:53 04/26/24 12:53 04/26/24 12:53
MDM/Problems Addressed
Differential Diagnosis Includes:
Patient with lower abdominal discomfort lack of bowel movement and slight nausea. No vomiting. Question constipation versus bowel obstruction versus electrolyte abnormality or anemia or adverse reaction to chemotherapy.
Labs reviewed through triage which show low white blood cell count at 1.9
Hemoglobin 9.7
Will hydrate. Give Zofran for nausea. CT of abdomen pending
*Critical Care Note
Total Time (30-74mins, 75-104mins- exclusive of procedures): Not Applicable
Update Note
Update Note:
Patient reexamined. Color is improved he is feeling much better he got 2 L of fluid here. CT shows no obstruction. There is a moderate mount stool to suggest some degree of constipation. Patient now accompanied by daughter. Patient wishes to go
home which I think is reasonable. He is leukopenic here but he has been out in the past. I suspect underlying dehydration potentially from recent chemotherapy treatment
ED Attending Note
-
Portions of this chart may have been created with voice recognition software.� Occasional wrong word or��sound alike� substitutions may have occurred due to the inherent limitations of voice recognition software.
Discharge Plan
Departure
Patient Disposition: Home (Routine Discharge)
Date of Disposition: 04/26/24
Time of Disposition: 20:00
Patient with high blood pressure during this ER visit?: No
Discharge Problem:
Dehydration
Instructions: Dehydration, Adult ED
Prescriptions:
No Action
latanoprost 0.005 % Drops
1 drp BOTH EYES HS
atorvastatin 40 mg Tablet
40 mg PO QPM
levothyroxine 50 mcg Tablet
50 mcg PO DAILY@06
finasteride 5 mg Tablet
5 mg PO DAILY
dorzolamide-timolol [Cosopt] 22.3-6.8 mg/mL Drops
1 drp BOTH EYES BID
metformin 500 mg Tablet Extended Release 24 Hr
500 mg PO QPM
ferrous sulfate [FeroSul] 325 mg (65 mg iron) Tablet
325 mg PO DAILY 30 Days Qty: 30 0RF
ondansetron HCl [Zofran] 8 mg Tablet
8 mg PO [id number] PRN (Reason: NAUSEA)
acetaminophen [Tylenol Extra Strength] 500 mg Tablet
1,000 mg PO TID
gabapentin 100 mg Capsule
200 mg PO TID
polyethylene glycol 3350 [HealthyLax] 17 gram powder in packet
17 g PO DAILYPRN PRN (Reason: CONSTIPATION)
docusate sodium [Colace] 100 mg capsule
100 mg PO DAILYPRN PRN (Reason: CONSTIPATION)
Referrals:
Mayito Silverio DO [Family Provider] -
Activity Restrictions/Additional Instructions:
Stay hydrated. Return here for worsening symptoms otherwise follow-up with your doctor
Interventions
Interventions:
*Risk Screen - Suicide Last Done: 04/26/24 12:53
*General Assessment Last Done: 04/26/24 12:53
*Neglect/Abuse Screening Last Done: 04/26/24 12:53
*ED COVID-19 Vaccine History Last Done: 04/26/24 14:47
Discharge Date and Time
Print Language: ROMANIAN
[2024-04-26] MEDS: ZOFRAN 4 MG IV (16:09)
[2024-04-26] MEDS: NSS 1000 IV (16:10)
[2024-04-26 16:23] LABS: Lactic Acid 1.5 mmol/L (0.7-2.0)
[2024-04-26] MEDS: TORADOL 15 MG IV (16:23)
== END 2024-04-26 20:42 | disposition home or self-care (01) ==
LOC: EMR 12:50
PROVIDERS: Emergency Medicine; Physician Assistant; EMERGENCY PHYSICIAN Emergency Medicine; FAMILY PHYSICIAN Internal Medicine
DX: R10.30 Lower abdominal pain, unspecified (principal); R14.0 Abdominal distension (gaseous); R11.0 Nausea; R20.0 Anesthesia of skin; E86.0 Dehydration; K59.00 Constipation, unspecified; C25.2 Malignant neoplasm of tail of pancreas; R26.2 Difficulty in walking, not elsewhere classified; R64 Cachexia; I10 Essential (primary) hypertension; E78.00 Pure hypercholesterolemia, unspecified; E03.9 Hypothyroidism, unspecified; Z98.0 Intestinal bypass and anastomosis status
CPT/HCPCS: 99285; 96375; 96374; 74177; 80053; 83605; 83690; 85025; 93005; Q9967

== ENCOUNTER → 2024-04-30 15:01 | Outpatient (REF) | payer MEDICARE, OTHER, SELFPAY ==
[2024-04-30 16:22] LABS: ALT (SGPT) 22 U/L (0-50); AST (SGOT) 19 U/L (17-59); Albumin 3.1 g/dl (3.5-5.0); Alkaline Phosphatase 210 U/L (38-126); Blood Urea Nitrogen 8 mg/dl (9-20); Calcium 7.9 mg/dl (8.4-10.2); Carbon Dioxide 25 mmol/L (22-30); Chloride 97 mmol/L (98-107); Glucose 136 mg/dl (70-99); Magnesium 1.7 mg/dl (1.6-2.3); Sodium 131 mmol/L (135-145); Total Bilirubin 0.6 mg/dl (0.2-1.3); Total Protein 5.5 g/dl (6.3-8.2); eGFR > 60.00
[2024-04-30 16:50] LABS: Absolute Neutrophils -Man Diff 2.2 10^3/uL (1.4-6.5); Atypical Lymphocytes 9 %; Band Neutrophils 0 % (0-3); Hematocrit 27.1 % (39.0-52.0); Hemoglobin 9.1 g/dL (13.0-18.0); Lymphocytes 24 % (20-51); Mean Corp Hgb Conc. 33.6 g/dL (33.0-37.0); Mean Corpuscular Hgb 33.3 pg (27.0-31.0); Mean Corpuscular Volume 99.3 fL (80.0-94.0); Mean Platelet Volume 11.9 fL (7.4-10.4); Metamyelocytes 1 % (-); Monocytes 31 % (2-9); Platelet Count 334 10^3/uL (130-400); Red Blood Cell Count 2.73 10^6/uL (4.70-6.10); Red Cell Dist. Width 18.1 % (11.5-14.5); Segmented Neutrophils 35 % (42-75); White Blood Cell Count 6.3 10^3/uL (4.8-10.8)
[2024-04-30 16:51] LABS: Normal RBC Morphology No; Nucleated Red Blood Cells 3 (-); Platelets Checked Yes
[2024-04-30 16:53] LABS: Macrocytosis 1+
[2024-04-30 16:54] LABS: Acanthocytes 1+; Burr Cells 3+; Polychromasia 1+; Target Cells 1+; Total Cells Counted 100
== END ==
LOC: OIDL 15:01
PROVIDERS: ATTENDING PHYSICIAN Nurse Practitioner Adult Health
DX: C25.2 Malignant neoplasm of tail of pancreas (principal); R53.83 Other fatigue; D50.9 Iron deficiency anemia, unspecified; G64 Other disorders of peripheral nervous system; E87.5 Hyperkalemia; T88.7XXA Unspecified adverse effect of drug or medicament, initial encounter; T45.1X5A Adverse effect of antineoplastic and immunosuppressive drugs, initial encounter
CPT/HCPCS: 80053; 83735; 85025

== ENCOUNTER → 2024-05-09 09:22 | Outpatient (REF) | payer MEDICARE, OTHER, SELFPAY ==
[2024-05-09 11:17] LABS: ALT (SGPT) 24 U/L (0-50); AST (SGOT) 41 U/L (17-59); Albumin 2.8 g/dl (3.5-5.0); Alkaline Phosphatase 432 U/L (38-126); Blood Urea Nitrogen 12 mg/dl (9-20); Calcium 8.3 mg/dl (8.4-10.2); Carbon Dioxide 30 mmol/L (22-30); Chloride 100 mmol/L (98-107); Glucose 95 mg/dl (70-99); Potassium 4.1 mmol/L (3.5-5.1); Sodium 140 mmol/L (135-145); Total Bilirubin 0.6 mg/dl (0.2-1.3); Total Protein 5.6 g/dl (6.3-8.2); eGFR > 60.00
[2024-05-09 11:40] LABS: % Basophils 0.2 % (0-2); % Eosinophils 0.3 % (0-6); % Immature Granulocytes 6.3 % (0-0.5); % Lymphocytes 5.1 % (20.5-51.1); % Monocytes 6.8 % (1.7-9.3); % Neutrophils 81.3 % (42.2-75.2); Absolute Basophils 0.1 10^3/uL (0-0.2); Absolute Eosinophils 0.2 10^3/uL (0-0.7); Absolute Immature Granulocytes 4.2 10^3/uL (0-0.05); Absolute Lymphocytes 3.4 10^3/uL (1.2-3.4); Absolute Monocytes 4.6 10^3/uL (0.1-0.6); Absolute Neutrophils 54.4 10^3/uL (1.4-6.5); Hematocrit 26.3 % (39.0-52.0); Hemoglobin 8.7 g/dL (13.0-18.0); Mean Corp Hgb Conc. 33.1 g/dL (33.0-37.0); Mean Corpuscular Hgb 32.8 pg (27.0-31.0); Mean Corpuscular Volume 99.2 fL (80.0-94.0); Mean Platelet Volume 11.1 fL (7.4-10.4); Nucleated Red Blood Cells % 0.2 % (-); Platelet Count 635 10^3/uL (130-400); Red Blood Cell Count 2.65 10^6/uL (4.70-6.10); Red Cell Dist. Width 20.3 % (11.5-14.5); White Blood Cell Count 66.9 10^3/uL (4.8-10.8)
== END ==
LOC: REG 09:22
PROVIDERS: ATTENDING PHYSICIAN Internal Medicine Hematology & Oncology; FAMILY PHYSICIAN Internal Medicine
DX: C25.2 Malignant neoplasm of tail of pancreas (principal); R53.83 Other fatigue; D50.9 Iron deficiency anemia, unspecified; G64 Other disorders of peripheral nervous system; E87.5 Hyperkalemia; T88.7XXA Unspecified adverse effect of drug or medicament, initial encounter; T45.1X5A Adverse effect of antineoplastic and immunosuppressive drugs, initial encounter
CPT/HCPCS: 36415; 80053; 85025

== ENCOUNTER → 2024-05-11 16:10 | Outpatient (REF) | payer MEDICARE, OTHER, SELFPAY ==
[2024-05-11 18:39] LABS: NT-proBNP 1900 pg/ml
== END ==
LOC: REG 16:10
PROVIDERS: ATTENDING PHYSICIAN Nurse Practitioner Adult Health; FAMILY PHYSICIAN Internal Medicine
DX: C25.2 Malignant neoplasm of tail of pancreas (principal); R53.83 Other fatigue; D50.9 Iron deficiency anemia, unspecified; G64 Other disorders of peripheral nervous system; E87.5 Hyperkalemia; T88.7XXA Unspecified adverse effect of drug or medicament, initial encounter; T45.1X5A Adverse effect of antineoplastic and immunosuppressive drugs, initial encounter
CPT/HCPCS: 36415; 71046; 83880

== ENCOUNTER → 2024-05-16 09:13 | Outpatient (REF) | payer MEDICARE, OTHER, SELFPAY ==
[2024-05-16 10:36] LABS: % Immature Granulocytes 0.5 % (0-0.5); % Lymphocytes 20.9 % (20.5-51.1); % Neutrophils 61.6 % (42.2-75.2); Absolute Basophils 0.1 10^3/uL (0-0.2); Absolute Eosinophils 0.2 10^3/uL (0-0.7); Absolute Immature Granulocytes 0.1 10^3/uL (0-0.05); Absolute Lymphocytes 2.4 10^3/uL (1.2-3.4); Absolute Monocytes 1.6 10^3/uL (0.1-0.6); Hematocrit 27.7 % (39.0-52.0); Hemoglobin 9.2 g/dL (13.0-18.0); Mean Corp Hgb Conc. 33.2 g/dL (33.0-37.0); Mean Corpuscular Hgb 32.5 pg (27.0-31.0); Mean Corpuscular Volume 97.9 fL (80.0-94.0); Mean Platelet Volume 10.2 fL (7.4-10.4); Nucleated Red Blood Cells % 0 % (-); Platelet Count 709 10^3/uL (130-400); Red Blood Cell Count 2.83 10^6/uL (4.70-6.10); Red Cell Dist. Width 21.3 % (11.5-14.5); White Blood Cell Count 11.3 10^3/uL (4.8-10.8)
[2024-05-16 11:11] LABS: ALT (SGPT) 25 U/L (0-50); AST (SGOT) 33 U/L (17-59); Albumin 3.1 g/dl (3.5-5.0); Alkaline Phosphatase 351 U/L (38-126); Blood Urea Nitrogen 12 mg/dl (9-20); Calcium 8.8 mg/dl (8.4-10.2); Carbon Dioxide 29 mmol/L (22-30); Chloride 103 mmol/L (98-107); Glucose 114 mg/dl (70-99); Sodium 140 mmol/L (135-145); Total Bilirubin 0.5 mg/dl (0.2-1.3); Total Protein 6.1 g/dl (6.3-8.2); eGFR > 60.00
== END ==
LOC: REG 09:13
PROVIDERS: ATTENDING PHYSICIAN Internal Medicine Hematology & Oncology; FAMILY PHYSICIAN Internal Medicine
DX: C25.2 Malignant neoplasm of tail of pancreas (principal); R53.83 Other fatigue; D50.9 Iron deficiency anemia, unspecified; G64 Other disorders of peripheral nervous system; E87.5 Hyperkalemia; T88.7XXA Unspecified adverse effect of drug or medicament, initial encounter; T45.1X5A Adverse effect of antineoplastic and immunosuppressive drugs, initial encounter
CPT/HCPCS: 36415; 80053; 85025

== ENCOUNTER → 2024-05-23 09:08 | Outpatient (REF) | payer MEDICARE, OTHER, SELFPAY ==
[2024-05-23 09:50] LABS: % Basophils 1.1 % (0-2); % Immature Granulocytes 0.2 % (0-0.5); % Monocytes 2.4 % (1.7-9.3); % Neutrophils 68.3 % (42.2-75.2); Absolute Basophils 0.1 10^3/uL (0-0.2); Absolute Eosinophils 0.4 10^3/uL (0-0.7); Absolute Lymphocytes 0.9 10^3/uL (1.2-3.4); Absolute Monocytes 0.1 10^3/uL (0.1-0.6); Absolute Neutrophils 3.1 10^3/uL (1.4-6.5); Hematocrit 29.3 % (39.0-52.0); Hemoglobin 9.4 g/dL (13.0-18.0); Mean Corp Hgb Conc. 32.1 g/dL (33.0-37.0); Mean Corpuscular Hgb 32.6 pg (27.0-31.0); Mean Corpuscular Volume 101.7 fL (80.0-94.0); Mean Platelet Volume 10.6 fL (7.4-10.4); Nucleated Red Blood Cells % 0 % (-); Platelet Count 577 10^3/uL (130-400); Red Blood Cell Count 2.88 10^6/uL (4.70-6.10); Red Cell Dist. Width 21.3 % (11.5-14.5); White Blood Cell Count 4.5 10^3/uL (4.8-10.8)
[2024-05-23 10:18] LABS: ALT (SGPT) 26 U/L (0-50); AST (SGOT) 33 U/L (17-59); Albumin 3.6 g/dl (3.5-5.0); Alkaline Phosphatase 248 U/L (38-126); Blood Urea Nitrogen 18 mg/dl (9-20); Calcium 9.6 mg/dl (8.4-10.2); Carbon Dioxide 28 mmol/L (22-30); Chloride 102 mmol/L (98-107); Glucose 133 mg/dl (70-99); Potassium 5.6 mmol/L (3.5-5.1); Sodium 139 mmol/L (135-145); Total Bilirubin 0.7 mg/dl (0.2-1.3); Total Protein 6.6 g/dl (6.3-8.2); eGFR > 60.00
== END ==
LOC: REG 09:08
PROVIDERS: ATTENDING PHYSICIAN Internal Medicine Hematology & Oncology; FAMILY PHYSICIAN Internal Medicine
DX: C25.2 Malignant neoplasm of tail of pancreas (principal); R53.83 Other fatigue; D50.9 Iron deficiency anemia, unspecified; G64 Other disorders of peripheral nervous system; E87.5 Hyperkalemia; T88.7XXA Unspecified adverse effect of drug or medicament, initial encounter; T45.1X5A Adverse effect of antineoplastic and immunosuppressive drugs, initial encounter
CPT/HCPCS: 36415; 80053; 85025

== ENCOUNTER → 2024-05-30 07:13 | Outpatient (REF) | payer MEDICARE, OTHER, SELFPAY ==
[2024-05-30 08:17] LABS: % Basophils 0.3 % (0-2); % Immature Granulocytes 0.3 % (0-0.5); % Lymphocytes 17.1 % (20.5-51.1); % Monocytes 0.8 % (1.7-9.3); % Neutrophils 71.5 % (42.2-75.2); Absolute Eosinophils 0.4 10^3/uL (0-0.7); Absolute Lymphocytes 0.7 10^3/uL (1.2-3.4); Absolute Neutrophils 2.7 10^3/uL (1.4-6.5); Hematocrit 25.4 % (39.0-52.0); Hemoglobin 8.5 g/dL (13.0-18.0); Mean Corp Hgb Conc. 33.5 g/dL (33.0-37.0); Mean Corpuscular Hgb 34.6 pg (27.0-31.0); Mean Corpuscular Volume 103.3 fL (80.0-94.0); Mean Platelet Volume 11.9 fL (7.4-10.4); Nucleated Red Blood Cells % 0.5 % (-); Platelet Count 284 10^3/uL (130-400); Red Blood Cell Count 2.46 10^6/uL (4.70-6.10); Red Cell Dist. Width 20.9 % (11.5-14.5); White Blood Cell Count 3.8 10^3/uL (4.8-10.8)
[2024-05-30 09:00] LABS: ALT (SGPT) 25 U/L (0-50); AST (SGOT) 27 U/L (17-59); Albumin 3.7 g/dl (3.5-5.0); Alkaline Phosphatase 195 U/L (38-126); Blood Urea Nitrogen 19 mg/dl (9-20); Calcium 9.4 mg/dl (8.4-10.2); Carbon Dioxide 25 mmol/L (22-30); Chloride 105 mmol/L (98-107); Glucose 125 mg/dl (70-99); Potassium 5.1 mmol/L (3.5-5.1); Sodium 138 mmol/L (135-145); Total Bilirubin 0.7 mg/dl (0.2-1.3); Total Protein 6.3 g/dl (6.3-8.2); eGFR > 60.00
== END ==
LOC: REG 07:13
PROVIDERS: ATTENDING PHYSICIAN Internal Medicine Hematology & Oncology; FAMILY PHYSICIAN Internal Medicine
DX: C25.2 Malignant neoplasm of tail of pancreas (principal); R53.83 Other fatigue; D50.9 Iron deficiency anemia, unspecified; G64 Other disorders of peripheral nervous system; E87.5 Hyperkalemia; T88.7XXA Unspecified adverse effect of drug or medicament, initial encounter; T45.1X5A Adverse effect of antineoplastic and immunosuppressive drugs, initial encounter
CPT/HCPCS: 36415; 80053; 85025

== ENCOUNTER → 2024-06-13 08:43 | Outpatient (REF) | payer MEDICARE, OTHER, SELFPAY ==
[2024-06-13 10:38] LABS: ALT (SGPT) 18 U/L (0-50); AST (SGOT) 36 U/L (17-59); Albumin 3.7 g/dl (3.5-5.0); Alkaline Phosphatase 330 U/L (38-126); Blood Urea Nitrogen 10 mg/dl (9-20); Calcium 8.4 mg/dl (8.4-10.2); Carbon Dioxide 23 mmol/L (22-30); Chloride 103 mmol/L (98-107); Glucose 63 mg/dl (70-99); Potassium 3.5 mmol/L (3.5-5.1); Sodium 140 mmol/L (135-145); Total Bilirubin 0.8 mg/dl (0.2-1.3); Total Protein 6.2 g/dl (6.3-8.2); eGFR > 60.00
[2024-06-13 12:50] LABS: % Basophils 0.2 % (0-2); % Eosinophils 0.2 % (0-6); % Immature Granulocytes 6.6 % (0-0.5); % Lymphocytes 5.5 % (20.5-51.1); % Monocytes 7.6 % (1.7-9.3); % Neutrophils 79.9 % (42.2-75.2); Absolute Basophils 0.1 10^3/uL (0-0.2); Absolute Eosinophils 0.1 10^3/uL (0-0.7); Absolute Immature Granulocytes 4.7 10^3/uL (0-0.05); Absolute Monocytes 5.4 10^3/uL (0.1-0.6); Absolute Neutrophils 57.5 10^3/uL (1.4-6.5); Hematocrit 29.2 % (39.0-52.0); Mean Corp Hgb Conc. 30.8 g/dL (33.0-37.0); Mean Corpuscular Hgb 33.2 pg (27.0-31.0); Mean Corpuscular Volume 107.7 fL (80.0-94.0); Mean Platelet Volume 12.2 fL (7.4-10.4); Nucleated Red Blood Cells % 1.7 % (-); Platelet Count 349 10^3/uL (130-400); Red Blood Cell Count 2.71 10^6/uL (4.70-6.10); Red Cell Dist. Width 22.8 % (11.5-14.5); White Blood Cell Count 71.8 10^3/uL (4.8-10.8)
== END ==
LOC: REG 08:43
PROVIDERS: ATTENDING PHYSICIAN Internal Medicine Hematology & Oncology; FAMILY PHYSICIAN Family Medicine
DX: C25.2 Malignant neoplasm of tail of pancreas (principal); R53.83 Other fatigue; D50.9 Iron deficiency anemia, unspecified; G64 Other disorders of peripheral nervous system; E87.5 Hyperkalemia; T88.7XXA Unspecified adverse effect of drug or medicament, initial encounter; T45.1X5A Adverse effect of antineoplastic and immunosuppressive drugs, initial encounter
CPT/HCPCS: 36415; 80053; 85025

== ENCOUNTER → 2024-06-27 08:42 | Outpatient (REF) | payer MEDICARE, OTHER, SELFPAY ==
[2024-06-27 09:55] LABS: % Basophils 1.5 % (0-2); % Eosinophils 3.2 % (0-6); % Immature Granulocytes 0.3 % (0-0.5); % Lymphocytes 27.3 % (20.5-51.1); % Monocytes 19.9 % (1.7-9.3); % Neutrophils 47.8 % (42.2-75.2); Absolute Basophils 0.1 10^3/uL (0-0.2); Absolute Eosinophils 0.2 10^3/uL (0-0.7); Absolute Lymphocytes 1.6 10^3/uL (1.2-3.4); Absolute Monocytes 1.2 10^3/uL (0.1-0.6); Absolute Neutrophils 2.8 10^3/uL (1.4-6.5); Hematocrit 28.3 % (39.0-52.0); Hemoglobin 9.1 g/dL (13.0-18.0); Mean Corp Hgb Conc. 32.2 g/dL (33.0-37.0); Mean Corpuscular Hgb 35.3 pg (27.0-31.0); Mean Corpuscular Volume 109.7 fL (80.0-94.0); Mean Platelet Volume 10.4 fL (7.4-10.4); Nucleated Red Blood Cells % 0 % (-); Platelet Count 610 10^3/uL (130-400); Red Blood Cell Count 2.58 10^6/uL (4.70-6.10); Red Cell Dist. Width 21.1 % (11.5-14.5); White Blood Cell Count 5.9 10^3/uL (4.8-10.8)
[2024-06-27 10:13] LABS: ALT (SGPT) 27 U/L (0-50); AST (SGOT) 36 U/L (17-59); Albumin 3.8 g/dl (3.5-5.0); Alkaline Phosphatase 208 U/L (38-126); Blood Urea Nitrogen 13 mg/dl (9-20); Calcium 9.5 mg/dl (8.4-10.2); Carbon Dioxide 30 mmol/L (22-30); Chloride 103 mmol/L (98-107); Glucose 123 mg/dl (70-99); Potassium 4.6 mmol/L (3.5-5.1); Sodium 141 mmol/L (135-145); Total Bilirubin 0.6 mg/dl (0.2-1.3); Total Protein 6.5 g/dl (6.3-8.2); eGFR > 60.00
[2024-06-29 02:22] LABS: CA 19-9 26 U/mL (<=35)
== END ==
LOC: REG 08:42
PROVIDERS: ATTENDING PHYSICIAN Internal Medicine Hematology & Oncology; FAMILY PHYSICIAN Internal Medicine
DX: C25.2 Malignant neoplasm of tail of pancreas (principal); R53.83 Other fatigue; D50.9 Iron deficiency anemia, unspecified; G64 Other disorders of peripheral nervous system; E87.5 Hyperkalemia; T88.7XXA Unspecified adverse effect of drug or medicament, initial encounter; T45.1X5A Adverse effect of antineoplastic and immunosuppressive drugs, initial encounter
CPT/HCPCS: 36415; 80053; 85025; 86301

== ENCOUNTER → 2024-08-01 09:38 | Outpatient (REF) | payer MEDICARE, OTHER, SELFPAY ==
[2024-08-01 10:06] LABS: % Basophils 0.9 % (0-2); % Eosinophils 9.6 % (0-6); % Immature Granulocytes 0.3 % (0-0.5); % Lymphocytes 23.7 % (20.5-51.1); % Monocytes 11.6 % (1.7-9.3); % Neutrophils 53.9 % (42.2-75.2); Absolute Basophils 0.1 10^3/uL (0-0.2); Absolute Eosinophils 0.8 10^3/uL (0-0.7); Absolute Lymphocytes 1.9 10^3/uL (1.2-3.4); Absolute Monocytes 0.9 10^3/uL (0.1-0.6); Absolute Neutrophils 4.2 10^3/uL (1.4-6.5); Hematocrit 34.4 % (39.0-52.0); Hemoglobin 10.9 g/dL (13.0-18.0); Mean Corp Hgb Conc. 31.7 g/dL (33.0-37.0); Mean Corpuscular Hgb 34.5 pg (27.0-31.0); Mean Corpuscular Volume 108.9 fL (80.0-94.0); Mean Platelet Volume 9.8 fL (7.4-10.4); Nucleated Red Blood Cells % 0 % (-); Platelet Count 314 10^3/uL (130-400); Red Blood Cell Count 3.16 10^6/uL (4.70-6.10); Red Cell Dist. Width 12.9 % (11.5-14.5); White Blood Cell Count 7.8 10^3/uL (4.8-10.8)
[2024-08-01 10:28] LABS: ALT (SGPT) 18 U/L (0-50); AST (SGOT) 26 U/L (17-59); Alkaline Phosphatase 124 U/L (38-126); Blood Urea Nitrogen 23 mg/dl (9-20); Calcium 9.2 mg/dl (8.4-10.2); Carbon Dioxide 31 mmol/L (22-30); Chloride 104 mmol/L (98-107); Glucose 117 mg/dl (70-99); Potassium 4.9 mmol/L (3.5-5.1); Sodium 142 mmol/L (135-145); Total Bilirubin 0.5 mg/dl (0.2-1.3); Total Protein 6.5 g/dl (6.3-8.2); eGFR > 60.00
[2024-08-03 08:12] LABS: CA 19-9 49 U/mL (<=35)
== END ==
LOC: REG 09:38
PROVIDERS: ATTENDING PHYSICIAN Internal Medicine Hematology & Oncology; FAMILY PHYSICIAN Internal Medicine
DX: C25.2 Malignant neoplasm of tail of pancreas (principal); R53.83 Other fatigue; D50.9 Iron deficiency anemia, unspecified; G64 Other disorders of peripheral nervous system; E87.5 Hyperkalemia; T88.7XXA Unspecified adverse effect of drug or medicament, initial encounter
CPT/HCPCS: 36415; 80053; 85025; 86301

== ENCOUNTER → 2024-08-19 07:08 | Outpatient (REF) | payer MEDICARE, OTHER, SELFPAY | LOC: RCS 07:08 | PROVIDERS: ATTENDING PHYSICIAN Internal Medicine Cardiovascular Disease; FAMILY PHYSICIAN Internal Medicine | DX: I50.30 Unspecified diastolic (congestive) heart failure (principal) | CPT/HCPCS: 93306; 93356 ==

== ENCOUNTER → 2024-08-26 09:09 | Outpatient (REF) | payer MEDICARE, OTHER, SELFPAY | LOC: RAD 09:09 | PROVIDERS: ATTENDING PHYSICIAN Internal Medicine Hematology & Oncology; FAMILY PHYSICIAN Internal Medicine | DX: C25.2 Malignant neoplasm of tail of pancreas (principal) | CPT/HCPCS: 71260; 74177; Q9967 ==

== ENCOUNTER → 2024-09-01 15:18 | Outpatient (REF) | payer MEDICARE, OTHER, SELFPAY ==
[2024-09-01 17:05] LABS: Urine Albumin Negative (Neg - Trace); Urine Bilirubin Negative (Negative); Urine Character Clear (Clear); Urine Color Yellow; Urine Glucose Negative (Negative); Urine Ketone Negative (Negative); Urine Leukocyte Negative (Negative); Urine Nitrite Negative (Negative); Urine Occult Blood 1+ (Negative); Urine Specific Gravity 1.015 (<1.030); Urine Urobilinogen Negative (Neg - 1+)
[2024-09-01 17:15] LABS: Urine Red Blood Cell 0-2 /HPF (0-2); Urine Squamous Cell 0-2 /LPF (Few); Urine White Cell 0-2 /HPF (0-5)
== END ==
LOC: REG 15:18
PROVIDERS: ATTENDING PHYSICIAN Nurse Practitioner Adult Health; FAMILY PHYSICIAN Internal Medicine
DX: C25.2 Malignant neoplasm of tail of pancreas (principal); R53.83 Other fatigue; D50.9 Iron deficiency anemia, unspecified; G64 Other disorders of peripheral nervous system; E87.5 Hyperkalemia; T88.7XXA Unspecified adverse effect of drug or medicament, initial encounter; T45.1X5A Adverse effect of antineoplastic and immunosuppressive drugs, initial encounter
CPT/HCPCS: 81003; 81015; 87086

== ENCOUNTER → 2024-09-10 10:22 | Outpatient (REF) | payer MEDICARE, OTHER, SELFPAY ==
[2024-09-10 11:00] LABS: % Basophils 0.6 % (0-2); % Immature Granulocytes 0.4 % (0-0.5); % Lymphocytes 20.5 % (20.5-51.1); % Monocytes 11.5 % (1.7-9.3); Absolute Basophils 0.1 10^3/uL (0-0.2); Absolute Eosinophils 0.2 10^3/uL (0-0.7); Absolute Lymphocytes 1.7 10^3/uL (1.2-3.4); Absolute Neutrophils 5.5 10^3/uL (1.4-6.5); Hematocrit 36.5 % (39.0-52.0); Hemoglobin 11.7 g/dL (13.0-18.0); Mean Corp Hgb Conc. 32.1 g/dL (33.0-37.0); Mean Corpuscular Hgb 33.8 pg (27.0-31.0); Mean Corpuscular Volume 105.5 fL (80.0-94.0); Mean Platelet Volume 9.5 fL (7.4-10.4); Nucleated Red Blood Cells % 0 % (-); Platelet Count 442 10^3/uL (130-400); Red Blood Cell Count 3.46 10^6/uL (4.70-6.10); Red Cell Dist. Width 12.4 % (11.5-14.5); White Blood Cell Count 8.5 10^3/uL (4.8-10.8)
[2024-09-10 11:34] LABS: ALT (SGPT) 13 U/L (0-50); AST (SGOT) 20 U/L (17-59); Alkaline Phosphatase 122 U/L (38-126); Blood Urea Nitrogen 18 mg/dl (9-20); Calcium 9.8 mg/dl (8.4-10.2); Carbon Dioxide 30 mmol/L (22-30); Chloride 101 mmol/L (98-107); Glucose 141 mg/dl (70-99); Potassium 4.9 mmol/L (3.5-5.1); Sodium 137 mmol/L (135-145); Total Bilirubin 0.7 mg/dl (0.2-1.3); Total Protein 6.7 g/dl (6.3-8.2); eGFR > 60.00
[2024-09-10 11:52] LABS: PSA, Total - Screen 0.08 ng/ml (0.0-4.0)
== END ==
LOC: REG 10:22
PROVIDERS: ATTENDING PHYSICIAN Internal Medicine Hematology & Oncology; FAMILY PHYSICIAN Internal Medicine; REFERRING PHYSICIAN Specialist
DX: C25.2 Malignant neoplasm of tail of pancreas (principal); R53.83 Other fatigue; D50.9 Iron deficiency anemia, unspecified; G64 Other disorders of peripheral nervous system; E87.5 Hyperkalemia; T88.7XXA Unspecified adverse effect of drug or medicament, initial encounter; T45.1X5A Adverse effect of antineoplastic and immunosuppressive drugs, initial encounter; R39.12 Poor urinary stream; Z12.5 Encounter for screening for malignant neoplasm of prostate
CPT/HCPCS: 36415; 80053; 85025; G0103

== ENCOUNTER 2024-09-21 01:55 | Inpatient (IN) | payer MEDICARE, OTHER, SELFPAY ==
[2024-09-20 22:01] VITALS: BP 119/59
[2024-09-20 23:17] VITALS: BP 118/47
--- NOTE | 2024-09-20 23:28 | ED.GENMED ---
History of Present Illness
General
Chief Complaint: Abdominal Pain
Source: patient and family (Daughter)
Exam Limitations: none
Time Seen by Provider: 09/20/24 22:45
Nursing documentation reviewed up to this point in time: agreed with
History of Present Illness
History of Present Illness:
84-year-old male with a past medical history of hyperlipidemia, pancreatic cancer status post resection of the pancreatic tail, history of valve structure and requiring partial bowel resection, prior splenectomy; who presents to the emergency room
for evaluation of abdominal pain. Patient reports that he has chronic abdominal pain related to his cancer. He says over the past few days he has had increasing pain in the lower abdomen. He reports associated constipation�he says he is
chronically constipated and takes MiraLAX and Colace daily but the past few days has only passed very tiny 'blips' of stool. He denies any nausea or vomiting peer denies any fevers or chills. His only other complaint is that he has been having
some difficulty emptying his bladder. He denies any dysuria or hematuria. Denies any flank pain.
Past History
Past History
ED Past Medical History: Cancer (Pancreatic), HTN, Hypercholesterolemia and Hypothyroidism
ED Past Surgical History: Other (Pancreatic tail resection)
Social History
Tobacco: Non-smoker
Alcohol: None
Personal:
Living: with family
Employment: Retired
Review of Systems
Review of Systems
All Other Systems: ROS reviewed and negative except as documented in HPI and ROS
Constitutional: Denies fever or chills
Cardiac: Denies palpitations
ABD/GI: Reports abdominal pain and constipated; Denies nausea or vomiting
: Reports difficulty voiding; Denies dysuria, frequency or flank pain
Musculoskeletal: Denies neck pain or back pain
Neurological: Denies dizzy or headache
Phy Exam
Physical Exam
Physical Exam:
General: Awake, alert, oriented x3; no acute distress
Head: Normocephalic, atraumatic
Eyes: Conjunctiva normal, sclera anicteric
Throat: Airway intact, handling secretions
Neck: Trachea midline
Lungs: Clear to auscultation bilaterally, no wheezing, rales, rhonchi
Heart: Regular rate and rhythm, no murmurs, gallops, or rubs
Abd: Soft, non distended, mildly tender across lower abdomen; bladder not palpable
Rectal: Mild prostate enlargement, no fecal impaction
Neuro: No gross deficits
Extremities: Warm and well-perfused with no edema
Scores
Heart Failure Risk
Heart Failure Risk Score: Not Applicable
Heart Score for Chest Pain Patients
STEMI patient?: Not applicable
Withdrawal Assessment of Alcohol
Withdrawal Assessment Completed?: Not applicable
Course
Orders/Labs/Results
Orders:
Orders
09/20/24 23:20
Complete Blood Count/With Diff Urgent
Comprehensive Metabolic Panel Urgent
09/20/24 23:28
Morphine Sulfate 4 mg IV NOW STA
09/20/24 23:31
Bladder Scan- Treatment ONCE
09/21/24 00:01
CT Abd/pelvis W Iv Cont Urgent
Reason For Exam: lower abd pain, constipation; h/o pancr ca and SBO
Abnormal Lab Results
09/20/24
23:20
RBC 3.34 L 10^6/uL
(4.70-6.10)
Hgb 11.1 L g/dL
(13.0-18.0)
Hct 33.6 L %
(39.0-52.0)
MCV 100.6 H fL
(80.0-94.0)
MCH 33.2 H pg
(27.0-31.0)
Plt Count 442 H 10^3/uL
(130-400)
Absolute Neuts (auto) 6.8 H 10^3/uL
(1.4-6.5)
Absolute Monos (auto) 1.4 H 10^3/uL
(0.1-0.6)
Lymphocytes % 20.3 L %
(20.5-51.1)
Monocytes % 13.0 H %
(1.7-9.3)
Glucose 147 H mg/dl
(70-99)
Alkaline Phosphatase 133 H U/L
(38-126)
09/20/24 23:20
09/20/24 23:20
Vital Signs
Initial and Last Documented VS:
Initial Vital Signs
Temp Pulse Resp BP Pulse Ox
36.9 C 92 18 119/59 98
09/20/24 22:01 09/20/24 22:01 09/20/24 22:01 09/20/24 22:01 09/20/24 22:01
Last Documented Vital Signs
Temp Pulse Resp BP Pulse Ox
36.9 C 92 18 111/48 97
09/20/24 22:01 09/20/24 22:01 09/20/24 22:01 09/21/24 00:00 09/21/24 00:00
MDM/Problems Addressed
Differential Diagnosis Includes:
Constipation, urinary retention, bowel obstruction, cancer related pain, diverticulitis
MDM/Problems Addressed:
84-year-old male with history as noted presents for evaluation of lower abdominal pain for the past few days associate with constipation and difficulty voiding. Vitals and exam as above. No fecal impaction. Will send labs including a CBC and a
CMP. Check bladder scan. If no marked retention plan for CT abdomen pelvis. Treat pain. Reassess after the above.
Bladder scan no significant postvoid residual�will proceed with CT abdomen pelvis to rule out obstruction given his history although suspect this may just be severe constipation.
Labs reviewed: CBC and CMP no clinically significant abnormalities.
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
and area of peritoneal disease possible early SBO. He is not vomiting hold off on NG tube will admit for serial exams, consider repeat CT with oral contrast in a.m. Discussed case with hospitalist.
Chronic conditions affecting care:
Pancreatic cancer
*Radiology
Radiology exam reviewed: radiology read reviewed
*Pulse Oximetry
Patient hypoxic: no
*Critical Care Note
Total Time (30-74mins, 75-104mins- exclusive of procedures): Not Applicable
Data Reviewed
Review of Other/Old Records Reveals: Labs and Records
Source: patient and family (Daughter)
Patient Management
Discussion with other providers: Hospitalist (Discussed with hospitalist)
Escalation/DeEscalation of care consider admission/obs:
Admission indicated
ED Attending Note
-
Portions of this chart may have been created with voice recognition software.� Occasional wrong word or��sound alike� substitutions may have occurred due to the inherent limitations of voice recognition software.
Discharge Plan
Departure
Patient Disposition: Admit
Date of Disposition: 09/21/24
Time of Disposition: 00:52
Admit to doctor: Jan
Presentation/result/management discussed w/ accepting MD/DO: Hospitalist
Discharge Problem:
Small bowel obstruction, Peritoneal carcinomatosis
Prescriptions:
No Action
latanoprost 0.005 % Drops
1 drp BOTH EYES HS
atorvastatin 40 mg Tablet
40 mg PO QPM
levothyroxine 50 mcg Tablet
50 mcg PO DAILY@06
finasteride 5 mg Tablet
5 mg PO DAILY
dorzolamide-timolol [Cosopt] 22.3-6.8 mg/mL Drops
1 drp BOTH EYES BID
metformin 500 mg Tablet Extended Release 24 Hr
500 mg PO QPM
ferrous sulfate [FeroSul] 325 mg (65 mg iron) Tablet
325 mg PO DAILY 30 Days Qty: 30 0RF
ondansetron HCl [Zofran] 8 mg Tablet
8 mg PO [id number] PRN (Reason: NAUSEA)
acetaminophen [Tylenol Extra Strength] 500 mg Tablet
1,000 mg PO TID
gabapentin 100 mg Capsule
200 mg PO TID
polyethylene glycol 3350 [HealthyLax] 17 gram powder in packet
17 g PO DAILYPRN PRN (Reason: CONSTIPATION)
docusate sodium [Colace] 100 mg capsule
100 mg PO DAILYPRN PRN (Reason: CONSTIPATION)
Referrals:
Mayito Silverio DO [Family Provider] -
Interventions
Interventions:
*Risk Screen - Suicide Last Done: 09/20/24 22:01
*General Assessment Last Done: 09/20/24 22:01
*Neglect/Abuse Screening Last Done: 09/20/24 22:01
*ED- Fall Risk Assessment Last Done: 09/20/24 22:01
*ED COVID-19 Vaccine History Last Done: 09/20/24 22:01
HE-Fsrilv-Eoeatiyimu Assessment Last Done: 09/20/24 23:12
Discharge Date and Time
Print Language: HUNGARIAN
[2024-09-20] MEDS: MORPHINE SULFATE 4 MG IV (23:34)
[2024-09-20 23:39] LABS: % Basophils 0.3 % (0-2); % Eosinophils 2.4 % (0-6); % Immature Granulocytes 0.3 % (0-0.5); % Lymphocytes 20.3 % (20.5-51.1); % Neutrophils 63.7 % (42.2-75.2); Absolute Eosinophils 0.3 10^3/uL (0-0.7); Absolute Lymphocytes 2.2 10^3/uL (1.2-3.4); Absolute Monocytes 1.4 10^3/uL (0.1-0.6); Absolute Neutrophils 6.8 10^3/uL (1.4-6.5); Hematocrit 33.6 % (39.0-52.0); Hemoglobin 11.1 g/dL (13.0-18.0); Mean Corpuscular Hgb 33.2 pg (27.0-31.0); Mean Corpuscular Volume 100.6 fL (80.0-94.0); Mean Platelet Volume 9.2 fL (7.4-10.4); Nucleated Red Blood Cells % 0 % (-); Platelet Count 442 10^3/uL (130-400); Red Blood Cell Count 3.34 10^6/uL (4.70-6.10); Red Cell Dist. Width 12.4 % (11.5-14.5); White Blood Cell Count 10.6 10^3/uL (4.8-10.8)
[2024-09-20 23:50] LABS: ALT (SGPT) 12 U/L (0-50); AST (SGOT) 18 U/L (17-59); Albumin 3.8 g/dl (3.5-5.0); Alkaline Phosphatase 133 U/L (38-126); Blood Urea Nitrogen 15 mg/dl (9-20); Calcium 9.6 mg/dl (8.4-10.2); Carbon Dioxide 29 mmol/L (22-30); Chloride 98 mmol/L (98-107); Estimated Creatinine Clearance 64 ml/min; Glucose 147 mg/dl (70-99); Potassium 4.5 mmol/L (3.5-5.1); Sodium 135 mmol/L (135-145); Total Bilirubin 0.4 mg/dl (0.2-1.3); Total Protein 6.5 g/dl (6.3-8.2); eGFR > 60.00
[2024-09-21] VITALS (12 sets, daily range): BP systolic 97–136; BP diastolic 47–95; PULSE 72–103; O2SAT 97–98; BMI 18.9
--- NOTE | 2024-09-21 01:35 | HPS.HSE ---
Family Physician
-
Family Physician: Mayito Silverio
Chief Complaint
-
Abd Pain
History of Present Illness
Patient is an 84y M with PMH significant for stage IV pancreatic cancer who presents to ED complaining of abdominal pain. Patient states that he has had gradually worsening lower abdominal pain over the past 3 weeks or so. Pain has been
worsening in severity and he has recently been spending most of his time in bed due to discomfort. His home pain medications have not been overly beneficial. He denies any N/V. He is able to tolerate PO intake, but has poor appetite. He reports
small, pebble-like stools. No bloody or black stools. No fevers / chills.
Patient was last hospitalized in January / February 2024. At that time he had SBO and underwent partial small bowel resection and EDILIA.
Patient had evidence of peritoneal carcinomatosis - including pelvic implants causing 'kinking' of the distal ileum at that time.
Patient was placed on palliative chemotherapy - but discontinued this in May 2024 due to adverse side effects. He is not currently on any active therapy for his pancreatic cancer.
Medical History
Past Medical History
Past Medical History: Reports Other
Additional Past Medical History:
Diabetes Mellitus
Hyperlipidemia
Hypothyroidism
Pancreatic Cancer s/p Resection and Chemotherapy
Past Surgical History: Reports Other
Additional Past Surgical History:
Pancreatic Tail Resection
Splenectomy
Partial Small Bowel Resection / EDILIA (02/12/24)
Social History
Tobacco: Non-smoker
Alcohol: None
Family History
Family History: Not pertinent
Allergies / Home Medications
Allergies reflects when Allergies were last updated in [facility].
Home Medications with original date entered in [facility]
Allergy/Medication List:
Allergies
Allergy/AdvReac Type Severity Reaction Status Date / Time
No Known Allergies Allergy Verified 09/20/24 22:01
Home Medications
atorvastatin 40 mg tablet 40 mg PO QPM High Cholesterol 01/07/23
finasteride 5 mg tablet 5 mg PO DAILY Urinary Issue 01/07/23
latanoprost 0.005 % eye drops 1 drp BOTH EYES HS Eye Condition 01/07/23
levothyroxine 50 mcg tablet 50 mcg PO DAILY@06 Thyroid 01/07/23
dorzolamide 22.3 mg-timolol 6.8 mg/mL eye drops (Cosopt) 1 drp BOTH EYES BID Eye Condition 02/07/24
metformin 500 mg tablet,extended release 24 hr 500 mg PO QPM Diabetes 02/07/24
ferrous sulfate 325 mg (65 mg iron) tablet (FeroSul) 325 mg PO DAILY 30 days #30 tabs 02/19/24
acetaminophen 500 mg tablet (Tylenol Extra Strength) 1,000 mg PO TID 04/26/24
docusate sodium 100 mg capsule (Colace) 100 mg PO DAILYPRN PRN CONSTIPATION 04/26/24
ondansetron HCl 8 mg tablet 8 mg PO [id number] PRN NAUSEA 04/26/24
polyethylene glycol 3350 17 gram oral powder packet (HealthyLax) 17 g PO DAILYPRN PRN CONSTIPATION 04/26/24
alfuzosin 10 mg tablet,extended release 24 hr 10 mg PO DAILY 09/21/24
gabapentin 300 mg capsule 300 mg PO QID 09/21/24
omeprazole 20 mg tablet,delayed release 20 mg PO DAILY 09/21/24
oxycodone 5 mg tablet 5 mg PO Q4H PRN pain 09/21/24
Review of Systems
-
History Source: Patient
A 12 point ROS was completed and negative except as noted: Yes
Constitutional: Reports Fatigue; Denies Fever or Chills
Respiratory: Denies Cough or Trouble Breathing
Cardiac: Denies Chest Pain or Palpitations
Abdomen/GI: Reports Abdominal Pain, Constipated and Anorexia; Denies Nausea, Vomiting, Diarrhea, Bloody Stools or Black Stools
: Reports Difficulty Voiding; Denies Dysuria or Frequency
Musculoskeletal: Denies Joint Pain or Edema
Neurological: Reports Weakness; Denies Dizzy or Headache
Psych: Denies Depression or Anxiety
Physical Exam
Vital Signs
Vital Signs
Temp Pulse Resp BP Pulse Ox
98.5 F 92 18 121/54 98
09/20/24 22:01 09/20/24 22:01 09/20/24 22:01 09/21/24 01:00 09/21/24 01:00
Physical Exam
General: Other (84y M in no acute distress.)
HEENT: Moist mucous membranes and PERRLA
Respiratory: Clear; No Wheezes, Rales or Rhonchi
Cardiac: S1/S2 and Regular Rhythm; No Murmur
GI: Other (Abdomen is softly distended. Pos bowel sounds. Mild tenderness across lower abdomen without rebound or guarding.)
Musculoskeletal: No Clubbing, No Cyanosis and No Edema
Neuro: AO x 3
Laboratory Results
-
09/20/24 23:20
09/20/24 23:20
Laboratory Results
Total Bilirubin 0.4 mg/dl (0.2-1.3) 09/20/24 23:20
AST 18 U/L (17-59) 09/20/24 23:20
ALT 12 U/L (0-50) 09/20/24 23:20
Alkaline Phosphatase 133 U/L (38-126) H 09/20/24 23:20
Impression/Plan
-
A/P: Patient is an 84y M with PMH significant for pancreatic cancer with peritoneal carcinomatosis who presents to ED complaining of abdominal pain.
Abdominal Pain
Partial SBO
Pancreatic Cancer with Peritoneal Carcinomatosis
- Admit for further evaluation and treatment.
- Supportive care with pain control, IVFs, etc.
- NG decompression if needed - but appears comfortable at present and no N/V.
- Surgery evaluation for additional recommendations.
- CT scan shows area of narrowing at distal ileum - similar to site of previously appreciated pelvic implants.
- Bowel regimen may help to improve passage / alleviate symptoms.
- Patient not currently on active therapy for his malignancy.
- Would consider Palliative or Hospice options.
BPH
- Patient with symptoms of BPH / LUTS.
- Has difficulty tolerating alpha blockers due to lightheadedness / orthostasis.
- Continue finasteride.
- Bladder scan protocol.
DM-II
- Stable. Hold PO metformin for now.
- Follow glucose and cover with SSI as needed.
- Update A1C.
Peripheral Neuropathy
Chronic Pain Syndrome
Chronic Opioid Dependence
- Patient on gabapentin and oxycodone for neuropathy and pain of malignancy.
- Continue current regimen.
- Hydromorphone for breakthrough pain.
Hypothyroidism
- Stable. Continue T4 replacement.
DVT Prophylaxis: Lovenox
Code Status: Full
[2024-09-21] MEDS: SYNTHROID 50 MCG PO (05:20)
[2024-09-21] MEDS: NSS 1000 IV ×2 (05:20→21:30)
--- NOTE | 2024-09-21 05:56 | PTCARENOTE ---
Receive pt from ER. Pt calm, in no distress, very pleasant. Pt assist X1 to bed, steady gait. Pt oriented to the room, call valdovinos within reach. Pt states that his pain is manageable (3/10) mostly in the mid abd around the belly button. Pt denies
nausea, or vomiting. VSS (T=97.8, HR=76, RR=18, DN=324/71, SpO2=96% on RA). IVFs infusing as per order. Pt is resting comfortably in his bed.
[2024-09-21 07:31] LABS: Hematocrit 34.9 % (39.0-52.0); Hemoglobin 11.7 g/dL (13.0-18.0); Mean Corp Hgb Conc. 33.5 g/dL (33.0-37.0); Mean Corpuscular Hgb 33.4 pg (27.0-31.0); Mean Corpuscular Volume 99.7 fL (80.0-94.0); Mean Platelet Volume 9.5 fL (7.4-10.4); Platelet Count 467 10^3/uL (130-400); Red Cell Dist. Width 12.4 % (11.5-14.5); White Blood Cell Count 11.7 10^3/uL (4.8-10.8)
[2024-09-21 07:57] LABS: Blood Urea Nitrogen 12 mg/dl (9-20); Calcium 9.8 mg/dl (8.4-10.2); Carbon Dioxide 28 mmol/L (22-30); Chloride 103 mmol/L (98-107); Estimated Creatinine Clearance 69 ml/min; Glucose 136 mg/dl (70-99); Potassium 4.4 mmol/L (3.5-5.1); Sodium 137 mmol/L (135-145); eGFR > 60.00
[2024-09-21 08:02] LABS: Glucose - Point of Care 155 mg/dl (70-99)
[2024-09-21] MEDS: COLACE 100 MG PO ×2 (08:03→20:03)
[2024-09-21] MEDS: MIRALAX 17 GRAMS PO (08:03)
[2024-09-21] MEDS: NEURONTIN 300 MG PO ×4 (08:03→21:40)
[2024-09-21] MEDS: PROSCAR 5 MG PO (08:03)
[2024-09-21] MEDS: FLUSH (NSS) 1 FLUSH IV (08:04)
[2024-09-21] MEDS: NSS (PRESERVATIVE FREE) 10 ML IV (08:04)
[2024-09-21] MEDS: PROTONIX IV 40 MG IV (08:04)
[2024-09-21] MEDS: COSOPT EYE DROPS 1 DROP BOTH EYES ×2 (08:05→20:06)
--- NOTE | 2024-09-21 08:25 | CON.GS ---
Addendum entered and electronically signed by Pj Fair MD 09/21/24 14:17:
Patient seen and examined.
Patient is a 84 yo M with a PMH notable for HLD, hypothyroidism, NIDDM, stage IV metastatic pancreatic adenocarcinoma s/p open distal pancreatectomy and splenectomy c/b hematoma necessitating reoperation for evacuation in 2022 and more recently s/p
laparoscopic assisted SBR for a malignant SBO on 02/12/2024 by Manjula. Mr. Maurer completed 9 doses of adjuvant chemotherapy ending in 05/2024 after intolerance. He states that in July of this year he began to develop lower abdominal crampy
abdominal pain. He presented to the hospital due to an acute progression/worsening of the symptoms. He does note some association with oral intake and feels more bloated following heavy meals. He notes that he has been constipated, over the past
weeks and has only been able to pass small, hard stools despite taking Miralax and Colace daily. He denies nausea or vomiting. He has had intermittent poor appetite and mild nausea but no vomiting. His last BM was this morning and he continues to
pass flatus. Of note, he had a recent CT scan of the chest/abdomen/pelvis in 08/2024 which did not demonstrate any evidence of new metastatic or intra-abdominal lesions, there was no evidence of significant small bowel dilation or obstruction at
that time.
Gen: NAD
Abd: soft, NT, mild distension, non-peritoneal, prior incision well healed, no palpable hernia
Labs and CT scan imaging were reviewed
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
The natural history and pathophysiology of bowel obstructions has been discussed in detail previously with his patient given his prior history. Given his prior history this is most likely related to peritoneal/metastatic disease despite his recent
CT scan imaging. No recent PET scan. Role of surgical intervention in the setting of metastatic pancreatic cancer is limited. Plan for small bowel follow-through to assess transit time and potentially provide some therapeutic benefit. Would
recommend MiraLAX at least daily if not twice daily pending these results. Given his clinical improvement can likely advance to a clear liquid diet pending the small bowel follow-through findings. Agree with previously noted recommendations for
Hospice evaluation if patient amendable. All questions answered. Daughter updated.
-- SBFT
-- Can likely advance to clears pending above imaging
-- Limited role for repeat surgical intervention especially at this time, though will follow along
Original Note:
Consultation
-
Date/Time Consultation Requested: 09/21/24 0432
Requesting Provider: Jan
Reason for Consultation: partial sbo
Medical History
-
Chief Complaint: pelvic pressure
History of Present Illness:
Mr Maurer is an 84 yo male with a h/o metastatic pancreatic cancer with surgery in January of 2023 for distal pancreatectomy with splenectomy and return to OR for evacuation of hematoma at [facility] followed by neoadjuvant chemotherapy. He was hospitalized
here at for a malignant small bowel obstruction in January of 2024 which did require surgical intervention with diagnostic laparoscopy converted to open laparotomy for small bowel resection and lysis of adhesions, a pelvic met was noted to cause
kinking of the TI intraoperatively. OR pathology confirmed metastatic pancreatic ductal adenocarcinoma. He was on Palliative chemotherapy after he recovered for 9 cycles up until May of 2024 when it was discontinued due to side effects. His
last outpatient imaging was August with no metastatic recurrence seen at that time. He presents this admission with gradual worsening of lower abdominal pressure for the past month or so. He initially attributed his symptoms to overdoing
it with his physical therapist and was placed on a PO steroid course which did not help. He notes that he has been constipated as well over the past weeks and has only been able to pass small, hard stools despite taking miralax and colace daily.
With this constipation, he has also been voiding more frequently with a stream that stops and starts for which he has been following with an outpatient urologist. He denies nausea or vomiting. He has had intermittent poor appetite and mild nausea
but no vomiting. His last BM was yesterday afternoon and he does continue to pass flatus. He notes that he has gradually become more and more bloated.
Past Medical History
Past Medical History: Cancer (metastatic pancreatic ca tx surgically and with chemo), Hypercholesterolemia, Hypothyroidism and NIDDM
Past Surgical History: Bowel Resection (Dx lap to ex lap with SBR for malignant SBO 02/12/2024) and Other (Laparotomy with distal pancreatectomy/splenectomy. Subsequent early postop relaparotomy for what sounds like was evacuation of a hematoma
(January 2023))
Social History
Tobacco: Non-Smoker
Alcohol: None
Family History
Family History: Reviewed & Not Pertinent
Allergies / Home Medications
Allergy/AdvReac Type Severity Reaction Status Date / Time
No Known Allergies Allergy Verified 09/20/24 22:01
�Medication �Instructions �Recorded �Confirmed �Type
atorvastatin 40 mg tablet 40 mg PO QPM High Cholesterol 01/07/23 09/21/24 History
finasteride 5 mg tablet 5 mg PO DAILY Urinary Issue 01/07/23 09/21/24 History
latanoprost 0.005 % eye drops 1 drp BOTH EYES HS Eye Condition 01/07/23 09/21/24 History
levothyroxine 50 mcg tablet 50 mcg PO DAILY@06 Thyroid 01/07/23 09/21/24 History
dorzolamide 22.3 mg-timolol 6.8 1 drp BOTH EYES BID Eye Condition 02/07/24 09/21/24 History
mg/mL eye drops (Cosopt)
metformin 500 mg tablet,extended 500 mg PO QPM Diabetes 02/07/24 09/21/24 History
release 24 hr
ferrous sulfate 325 mg (65 mg 325 mg PO DAILY 30 days #30 tabs 02/19/24 09/21/24 Rx
iron) tablet (FeroSul)
acetaminophen 500 mg tablet 1,000 mg PO TID 04/26/24 09/21/24 History
(Tylenol Extra Strength)
docusate sodium 100 mg capsule 100 mg PO DAILYPRN PRN CONSTIPATION 04/26/24 09/21/24 History
(Colace)
ondansetron HCl 8 mg tablet 8 mg PO [id number] PRN NAUSEA 04/26/24 09/21/24 History
polyethylene glycol 3350 17 gram 17 g PO DAILYPRN PRN CONSTIPATION 04/26/24 09/21/24 History
oral powder packet (HealthyLax)
alfuzosin 10 mg tablet,extended 10 mg PO DAILY 09/21/24 09/21/24 History
release 24 hr
gabapentin 300 mg capsule 300 mg PO QID 09/21/24 09/21/24 History
omeprazole 20 mg tablet,delayed 20 mg PO DAILY 09/21/24 09/21/24 History
release
oxycodone 5 mg tablet 5 mg PO Q4H PRN pain 09/21/24 09/21/24 History
Review of Systems
-
History Source: Patient
All other systems: Negative unless noted
A 10 point review of systems was completed, and was negative except as per HPI.
Physical Exam
Vital Signs
Temp Pulse Resp BP Pulse Ox
97.9 F 76 18 127/64 97
09/21/24 08:12 09/21/24 08:12 09/21/24 08:12 09/21/24 08:12 09/21/24 08:12
09/20/24 09/21/24 09/22/24
06:59 06:59 06:59
Actual Weight 59.874 kg
Body Mass Index (BMI) 18.9
Lab Results
09/21/24 07:07
09/21/24 07:07
WBC 11.7 10^3/uL (4.8-10.8) H 09/21/24 07:07
Hgb 11.7 g/dL (13.0-18.0) L 09/21/24 07:07
Hct 34.9 % (39.0-52.0) L 09/21/24 07:07
Plt Count 467 10^3/uL (130-400) H 09/21/24 07:07
Abs Immat Gran (auto) 0.0 10^3/uL (0-0.05) 09/20/24 23:20
Neutrophils % 63.7 % (42.2-75.2) 09/20/24 23:20
Physical Exam
General: Well Developed and Well Nourished
HEENT: Normocephalic and Moist Mucous Membranes
Respiratory: Non Labored Respirations
GI: Soft, Non Tender and Distended
Skin: Warm and Dry
Neuro: Awake, Alert and AO x 3
Psych: Calm
Data Reviewed
-
CT Scan: Image Personally Visualized and interpreted, Report Reviewed by me, Discussed with Physician and Discussed with Patient
Labs: Labs Reviewed by me, Discussed with Physician and Discussed with Patient
Old Records: Reviewed
Assessment / Plan
-
84 yo male with a h/o metastatic pancreatic cancer with surgery in January of 2023 for distal pancreatectomy with splenectomy and return to OR for evacuation of hematoma at [facility] followed by neoadjuvant chemotherapy. He was hospitalized here at for
a malignant small bowel obstruction in January of 2024 which did require surgical intervention with diagnostic laparoscopy converted to open laparotomy for small bowel resection and lysis of adhesions, a pelvic met was noted to cause kinking of the TI
intraoperatively. OR pathology confirmed metastatic pancreatic ductal adenocarcinoma. He was on Palliative chemotherapy after he recovered for 9 cycles up until May of 2024 when it was discontinued due to side effects. His last outpatient
imaging was August with no metastatic recurrence seen at that time.
He presents this admission with gradual worsening of lower abdominal pressure for the past month or so with constipation despite taking miralax and colace daily. He has had intermittent poor appetite and mild nausea but no vomiting. His last BM was
yesterday afternoon and he does continue to pass flatus. CT imaging in the ED was done without PO contrast limiting evaluation but does demonstrate SB dilatation with a possible partial sbo secondary to metastatic disease with transition point near
peritoneal implants near the TI. Air/stool within the colon. AFVSS. No active nausea. Passing flatus. Mild leukocytosis.
--NPO for bowel rest
--May need SBFT study to further evaluate pending patient progress
--Analgesics/antiemetics prn
--No emergent surgery planned at this time
[2024-09-21] MEDS: NOVOLOG FLEXPEN-LOW RESISTANCE 1 UNITS SC (08:53)
[2024-09-21 09:48] LABS: Glycohemoglobin (HgbA1c) 7.6 % (4.0-5.6)
[2024-09-21 12:02] LABS: Glucose - Point of Care 132 mg/dl (70-99)
[2024-09-21] MEDS: NOVOLOG FLEXPEN-LOW RESISTANCE SC ×2 (12:20→17:12)
--- NOTE | 2024-09-21 12:22 | CM ---
Patient seen bedside, initial assessment completed. Patient is an 84y M with PMH significant for stage IV pancreatic cancer who presents to ED complaining of abdominal pain.
Patient reports that he lives w/ spouse and daughter in a single story rancher style home- 2 steps to enter the home. Patient utilizes a cane to ambulate and has a tub grab bar and shower chair in the home. Patient denies SNF hx, prev known to [facility]
for home PT. Patient prefers [facility] if HH is recommended at d/c.
Address, points of contact and insurance verified
PCP: Mayito Silverio
Pharmacy: [facility]
PT/OT eval ordered, will await any recommendations
Plan: Anticipate home
--- NOTE | 2024-09-21 12:59 | W.PN.UPDATE ---
Update Note
Progress Note Update
Non-billable addendum. H&P submitted 135 AM
Admitted with pSBO likely related to peritoneal implants seen on CT
reports abdominal pain, lower abd with distention
no N/V
Assessment:
Abdominal Pain
Partial SBO
- Supportive care with pain control, IVFs, etc.
- NG decompression if needed - but appears comfortable at present and no N/V.
- CT scan shows area of narrowing at distal ileum - similar to site of previously appreciated pelvic implants.
- Bowel regimen may help to improve passage / alleviate symptoms.
- GS following
Pancreatic Cancer with Peritoneal Carcinomatosis
- Patient not currently on active therapy for his malignancy.
- consider Palliative or Hospice options if patient amenable
BPH
- Patient with symptoms of BPH/LUTS.
- Has difficulty tolerating alpha blockers due to lightheadedness / orthostasis.
- Continue finasteride.
- Bladder scan protocol.
DM-II
- Stable. Hold PO metformin for now.
- Follow glucose and cover with SSI as needed.
- A1C 7.6%
Peripheral Neuropathy
Chronic Pain Syndrome
Chronic Opioid Dependence
- Patient on gabapentin and oxycodone for neuropathy and pain of malignancy.
- Continue current regimen.
- Hydromorphone for breakthrough pain.
Hypothyroidism
- Stable. Continue T4 replacement.
DVT Prophylaxis: Lovenox
Code Status: Full
[2024-09-21] MEDS: ROXICODONE 5 MG PO ×2 (13:04→20:03)
[2024-09-21 16:48] LABS: Glucose - Point of Care 129 mg/dl (70-99)
--- NOTE | 2024-09-21 17:13 | PTCARENOTE ---
Pt awake, alert, Oriented x3. ALLAN well, OOB to BR with minimal assistance, isaiah well, no c/o weakness/dizziness. VSS. On room air- pulse ox 97%, no SOB noted. Abd soft, rounded, NPO maintained, pt c/o mild lower abd discomfort- good effect from
PO Roxicodone. Pt aware of NPO for abd SBFT Xray in am 11. Voiding in BR without difficulty. IVF's NSS @ 60 ml/hr infusing via Rt AC site without sx of infiltration. Resting comfortably at present. Will continue to monitor.l
[2024-09-21] MEDS: LOVENOX 40 MG SC (17:39)
[2024-09-21] MEDS: MIRALAX PO ×2 (20:03→20:09)
[2024-09-21 21:15] LABS: Glucose - Point of Care 110 mg/dl (70-99)
[2024-09-21] MEDS: XALATAN OPHTHALMIC SOLUTION 1 DROP BOTH EYES (21:41)
--- NOTE | 2024-09-22 04:00 | PTCARENOTE ---
Bladder scanned @ 0120 as pt said he was to BR x2 and unable to void. States last void was @ 2200. Scan showed 175ml. Pt now states he voided lg amt Ua in BR and at this time has no urge to void.
[2024-09-22] MEDS: SYNTHROID 50 MCG PO (04:11)
[2024-09-22] MEDS: ROXICODONE 5 MG PO (04:12)
[2024-09-22 05:41] LABS: Glucose - Point of Care 101 mg/dl (70-99)
[2024-09-22 06:00] VITALS: BMI 19.0
[2024-09-22 07:01] LABS: Hematocrit 33.4 % (39.0-52.0); Mean Corp Hgb Conc. 32.9 g/dL (33.0-37.0); Mean Corpuscular Volume 100.3 fL (80.0-94.0); Mean Platelet Volume 9.3 fL (7.4-10.4); Platelet Count 447 10^3/uL (130-400); Red Blood Cell Count 3.33 10^6/uL (4.70-6.10); Red Cell Dist. Width 12.5 % (11.5-14.5); White Blood Cell Count 9.8 10^3/uL (4.8-10.8)
[2024-09-22 07:30] VITALS: BP 119/61
[2024-09-22 07:43] LABS: Blood Urea Nitrogen 14 mg/dl (9-20); Calcium 9.6 mg/dl (8.4-10.2); Carbon Dioxide 23 mmol/L (22-30); Chloride 104 mmol/L (98-107); Estimated Creatinine Clearance 69 ml/min; Glucose 99 mg/dl (70-99); Potassium 4.3 mmol/L (3.5-5.1); Sodium 137 mmol/L (135-145); eGFR > 60.00
--- NOTE | 2024-09-22 08:06 | W.PN.GS2 ---
Addendum entered and electronically signed by Pj Fair MD 09/22/24 15:42:
Small bowel follow-through with no evidence of obstruction and normal transit time. Started on clears. Can advance diet as tolerated to a low residue diet. Possible that some of his symptoms are related to constipation. Will discharge on a bowel
regimen of MiraLAX once if not twice a day. Can discharge on Levsin for bowel spasms. Please call with any questions or concerns.
Original Note:
Today's Communication / Plan
-
-- SBFT
-- Can ADAT pending the above
Assessment / Plan
-
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
Clinical improvement. Plan for SBFT to assess transit time and ability to provide education of likelihood of recurrence and ways to improve symptoms going forward (bowel meds, dietary modifications). Given the inability to definitively treat his
underlying disease process with surgery, surgical options are limited and palliative at best. Dietary advancement as tolerated pending SBFT findings. He may do well with medications to alleviate bowel spasms (Levsin) on discharge. All questions
answered.
-- SBFT
-- Can ADAT pending the above
-- Limited role for repeat surgical intervention especially at this time, though will follow along
-- DC later today versus tomorrow pending imaging and dietary advancement
Subjective Data
-
Date of Service: September 22, 2024
Doing well, no worsening pain , nausea or emesis. Continues to pass flatus and hab a BM overnight. Episode of lower crampy abdominal pain overnight, improved with having a BM. No fevers.
Objective Data
-
Intake and Output
09/21/24 09/22/24 09/23/24
06:59 06:59 06:59
Intake Total 0 / 0 840 / 840
Balance 0 / 0 840 / 840
Intake:
Oral fluids 0 / 0 120 / 120
IV fluids (Total) 720 / 720
Other:
Number of approximated MODERATE 1 5
amounts of urine
How many times incontinent 1
MODERATE amount urine
How many times incontinent 1
SATURATED amount urine
Vital Signs
Temp Pulse Resp BP Pulse Ox
97.9 F 72 18 118/62 97
09/21/24 23:54 09/21/24 23:54 09/21/24 23:54 09/21/24 23:54 09/21/24 23:54
Lab Results
09/22/24 06:52
09/22/24 06:52
Calcium 9.6 mg/dl (8.4-10.2) 09/22/24 06:52
Total Bilirubin 0.4 mg/dl (0.2-1.3) 09/20/24 23:20
AST 18 U/L (17-59) 09/20/24 23:20
ALT 12 U/L (0-50) 09/20/24 23:20
Alkaline Phosphatase 133 U/L (38-126) H 09/20/24 23:20
Total Protein 6.5 g/dl (6.3-8.2) 09/20/24 23:20
Albumin 3.8 g/dl (3.5-5.0) 09/20/24 23:20
Physical Exam
-
Gen: NAD
Abd: soft, NT, ND, slight fullness in RIGHT mtaeus-umbilical area (previous area of met implant and surgical resection), no skin changes, non-peritoneal, prior incision well healed
Patient has a shaffer catheter: No
Patient has a central line: No
[2024-09-22] MEDS: NSS (PRESERVATIVE FREE) 10 ML IV (08:31)
[2024-09-22] MEDS: PROTONIX IV 40 MG IV (08:31)
[2024-09-22] MEDS: COSOPT EYE DROPS 1 DROP BOTH EYES ×2 (08:32→20:52)
--- NOTE | 2024-09-22 09:16 | W.PN.HOSP.TC ---
Today's Communication/Plan
-
await SBFT results to determine diet advancement
Assessment / Plan
Assessment / Plan
Assessment:
Abdominal Pain
Partial SBO
- Supportive care with pain control, IVFs, etc.
- CT scan shows area of narrowing at distal ileum - similar to site of previously appreciated pelvic implants.
- GS following
- SBFT ordered to assess transit time
- may need bowel regimen and anti-spasmodic agent such as Levsin at dc
Pancreatic Cancer with Peritoneal Carcinomatosis
- Patient not currently on active therapy for his malignancy.
- consider Palliative or Hospice options if patient amenable
BPH
- Patient with symptoms of BPH/LUTS.
- Has difficulty tolerating alpha blockers due to lightheadedness / orthostasis.
- Continue finasteride.
- Bladder scan protocol.
DM-II
- Stable. Hold PO metformin for now.
- Follow glucose and cover with SSI as needed.
- A1C 7.6%
Peripheral Neuropathy
Chronic Pain Syndrome
Chronic Opioid Dependence
- Patient on gabapentin and oxycodone for neuropathy and pain of malignancy.
- Continue current regimen.
- Hydromorphone for breakthrough pain.
Hypothyroidism
- Stable. Continue T4 replacement.
DVT Prophylaxis: Lovenox
Code Status: Full
Anticipated Discharge: Within 24 hours
Subjective/Interval History
-
Date of Service: September 22, 2024
feels 'about the same', denies pain, nausea/vomiting
+ flatus and BM last evening
Objective Data
-
Labs:
Laboratory Results
09/22/24
06:52
WBC 9.8
Hgb 11.0 L
Hct 33.4 L
Plt Count 447 H
Sodium 137
Potassium 4.3
Chloride 104
Carbon Dioxide 23
BUN 14
Creatinine 0.7
Glucose 99
Calcium 9.6
Vital Signs:
Vital Signs
Temp Pulse Resp BP Pulse Ox
97.8 F 75 18 119/61 96
09/22/24 07:30 09/22/24 07:30 09/22/24 07:30 09/22/24 07:30 09/22/24 07:30
I&O
09/21/24 09/22/24 09/23/24
06:59 06:59 06:59
Intake Total 0 / 0 840 / 840
Balance 0 / 0 840 / 840
Physical Exam
-
General: No Apparent Distress
HEENT: Normocephalic and Atraumatic
Respiratory: Negative Wheezes
Cardiac: Regular Rhythm and S1/S2
GI: Soft, Nontender and Other (R periumbilical fullness )
Musculoskeletal: No Edema
Neuro: AO x 3
Psych: Calm
Data Reviewed
-
Total Time Spent with Patient (in minutes): 41
Labs: Labs Reviewed by me
[2024-09-22 09:40] VITALS: BP 116/55; BP 129/59; BP 82/49; PULSE 61; PULSE 78; PULSE 90
[2024-09-22 12:04] LABS: Glucose - Point of Care 104 mg/dl (70-99)
[2024-09-22 12:12] VITALS: BP 106/55; PULSE 88; O2SAT 98
[2024-09-22] MEDS: COLACE PO ×2 (12:46→20:47)
[2024-09-22] MEDS: MIRALAX PO ×2 (12:46→20:47)
[2024-09-22] MEDS: NEURONTIN PO (12:46)
[2024-09-22] MEDS: PROSCAR 5 MG PO (12:49)
[2024-09-22] MEDS: NEURONTIN 300 MG PO ×3 (12:49→20:50)
[2024-09-22] MEDS: DILAUDID 0.5 MG IV ×2 (12:49→20:49)
[2024-09-22 15:32] VITALS: BP 130/70
[2024-09-22 16:35] LABS: Glucose - Point of Care 180 mg/dl (70-99)
[2024-09-22] MEDS: NSS 1000 IV (17:59)
[2024-09-22] MEDS: NOVOLOG FLEXPEN-LOW RESISTANCE 1 UNITS SC (18:00)
[2024-09-22] MEDS: LOVENOX 40 MG SC (18:02)
--- NOTE | 2024-09-22 18:03 | PTCARENOTE ---
patient tolerated clear liquids- advanced to low residue diet- patient ate 1/2 of a hot turkey sandwich, custard and coffee- feeling full, abdomen softly distended and mild tenderness in lower abdomen. instructed patient to not eat any more and
continue slowly with clear liquids tonight. plan of care on going.
[2024-09-22] MEDS: XALATAN OPHTHALMIC SOLUTION 1 DROP BOTH EYES (20:52)
[2024-09-22 21:10] LABS: Glucose - Point of Care 105 mg/dl (70-99)
[2024-09-22 23:42] VITALS: BP 130/60
[2024-09-23] MEDS: DILAUDID 0.5 MG IV (04:28)
[2024-09-23] MEDS: SYNTHROID 50 MCG PO (04:28)
[2024-09-23 06:00] VITALS: BMI 19.2
[2024-09-23 07:17] LABS: Hematocrit 33.3 % (39.0-52.0); Hemoglobin 10.9 g/dL (13.0-18.0); Mean Corp Hgb Conc. 32.7 g/dL (33.0-37.0); Mean Corpuscular Hgb 33.1 pg (27.0-31.0); Mean Corpuscular Volume 101.2 fL (80.0-94.0); Mean Platelet Volume 9.5 fL (7.4-10.4); Platelet Count 453 10^3/uL (130-400); Red Blood Cell Count 3.29 10^6/uL (4.70-6.10); Red Cell Dist. Width 12.7 % (11.5-14.5); White Blood Cell Count 9.8 10^3/uL (4.8-10.8)
[2024-09-23 07:33] LABS: Blood Urea Nitrogen 17 mg/dl (9-20); Calcium 9.4 mg/dl (8.4-10.2); Carbon Dioxide 23 mmol/L (22-30); Chloride 102 mmol/L (98-107); Estimated Creatinine Clearance 81 ml/min; Glucose 105 mg/dl (70-99); Sodium 135 mmol/L (135-145); eGFR > 60.00
[2024-09-23 07:41] VITALS: BP 147/60
[2024-09-23 08:03] LABS: Glucose - Point of Care 108 mg/dl (70-99)
[2024-09-23] MEDS: NOVOLOG FLEXPEN-LOW RESISTANCE SC (08:24)
[2024-09-23] MEDS: MIRALAX PO (08:25)
[2024-09-23] MEDS: COSOPT EYE DROPS 1 DROP BOTH EYES (08:25)
[2024-09-23] MEDS: COLACE PO (08:25)
[2024-09-23] MEDS: NSS (PRESERVATIVE FREE) 10 ML IV (08:26)
[2024-09-23] MEDS: NEURONTIN 300 MG PO (08:26)
[2024-09-23] MEDS: PROSCAR 5 MG PO (08:27)
[2024-09-23] MEDS: PROTONIX IV 40 MG IV (08:27)
--- NOTE | 2024-09-23 09:29 | PN.CDI ---
CDI
- -
CDI:
Physician Documentation Request
Admit Date: 09/21/24 01:55
Dear Doctor Star,
Please review the following and provide your response in the progress notes.
Clinical Indicators:
Height: 5ft 10 in
Weight:132
BMI:18.9
Other Clinical Notes: Nutrition consult 09/21,' ..Pts weight previous admission listed 145 lbs 02/18 reflective of a 13 lb (9%) weight loss in months....'
If possible, please provide an associated diagnosis related to the abnormal BMI, such as:
BMI < or = to 19
Weight Loss
Cachectic
- Other
Use of terms such as suspected, likely, concern for, or probable (associated with a specific diagnosis that is being evaluated, monitored, or treated as if it exists) are acceptable and can be coded in the inpatient setting, when documented at the
time of discharge.
Thank you,
Neli Jefferson RN
CDI Specialist
[place] [facility]
Please use your independent medical judgment in providing your response.
--- NOTE | 2024-09-23 09:54 | W.PN.HOSP.TC ---
Addendum entered and electronically signed by Torrey Graves MD 09/23/24 10:09:
cancer related Cachexia
Original Note:
Today's Communication/Plan
-
plan for DC later today if ok with surgical service
Assessment / Plan
Assessment / Plan
Assessment:
Abdominal Pain
Partial SBO
- Supportive care with pain control, IVFs, etc.
- CT scan shows area of narrowing at distal ileum - similar to site of previously appreciated pelvic implants.
- GS following
- SBFT unremarkable
- continue bowel regimen, love for anti-spasms,
- Low res, low lactose diet
- smaller, frequent meals may help
Pancreatic Cancer with Peritoneal Carcinomatosis
- Patient not currently on active therapy for his malignancy.
- consider Palliative or Hospice options if patient amenable
BPH
- Patient with symptoms of BPH/LUTS.
- Has difficulty tolerating alpha blockers due to lightheadedness / orthostasis.
- Continue finasteride.
- Bladder scan protocol.
DM-II
- Stable. Hold PO metformin for now.
- Follow glucose and cover with SSI as needed.
- A1C 7.6%
Peripheral Neuropathy
Chronic Pain Syndrome
Chronic Opioid Dependence
- Patient on gabapentin and oxycodone for neuropathy and pain of malignancy.
- Continue current regimen.
- Hydromorphone for breakthrough pain.
Hypothyroidism
- Stable. Continue T4 replacement.
DVT Prophylaxis: Lovenox
Code Status: Full
More than 30 minutes spent in discharge including
Final examination of the patient
Summarizing hospital stay
Instructions for continuing care to all relevant caregivers
Preparation of discharge records, prescriptions, and referral forms
Total time spent (in minutes): 41
Anticipated Discharge: Today
Subjective/Interval History
-
Date of Service: September 23, 2024
denies any pain
tolerating diet
had a few BM, + flatus
Objective Data
-
Labs:
Laboratory Results
09/23/24
06:48
WBC 9.8
Hgb 10.9 L
Hct 33.3 L
Plt Count 453 H
Sodium 135
Potassium 4.0
Chloride 102
Carbon Dioxide 23
BUN 17
Creatinine 0.6 L
Glucose 105 H
Calcium 9.4
Vital Signs:
Vital Signs
Temp Pulse Resp BP Pulse Ox
98.4 F 65 18 147/60 99
09/23/24 07:41 09/23/24 07:41 09/23/24 07:41 09/23/24 07:41 09/23/24 07:41
I&O
09/22/24 09/23/24 09/24/24
06:59 06:59 06:59
Intake Total 840 / 840 1530 / 1530
Balance 840 / 840 1530 / 1530
Physical Exam
-
General: No Apparent Distress
HEENT: Normocephalic and Atraumatic
Respiratory: Negative Wheezes
Cardiac: Regular Rhythm and S1/S2
GI: Soft and Nontender
Musculoskeletal: No Edema
Neuro: AO x 3
Psych: Calm
Data Reviewed
-
Total Time Spent with Patient (in minutes): 41
Labs: Labs Reviewed by me
--- NOTE | 2024-09-23 10:01 | W.DS.TRANS ---
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
-
Discharge Instructions:
Discharge Diagnosis/Procedures partial small bowel obstruction
Diet Low Residue
Additional Diets low lactose
Activity As tolerated
Bathing Restrictions None
Instructions:
Stand-Alone Forms:
Changes to Home Medications: No
Discharge Medications:
DC Medications w/original date entered in [facility]
atorvastatin 40 mg tablet 40 mg PO QPM High Cholesterol 01/07/23
finasteride 5 mg tablet 5 mg PO DAILY Urinary Issue 01/07/23
latanoprost 0.005 % eye drops 1 drp BOTH EYES HS Eye Condition 01/07/23
levothyroxine 50 mcg tablet 50 mcg PO DAILY@06 Thyroid 01/07/23
dorzolamide 22.3 mg-timolol 6.8 mg/mL eye drops (Cosopt) 1 drp BOTH EYES BID Eye Condition 02/07/24
metformin 500 mg tablet,extended release 24 hr 500 mg PO QPM Diabetes 02/07/24
ferrous sulfate 325 mg (65 mg iron) tablet (FeroSul) 325 mg PO DAILY 30 days #30 tabs 02/19/24
acetaminophen 500 mg tablet (Tylenol Extra Strength) 1,000 mg PO TID 04/26/24
docusate sodium 100 mg capsule (Colace) 100 mg PO DAILYPRN PRN CONSTIPATION 04/26/24
ondansetron HCl 8 mg tablet 8 mg PO [id number] PRN NAUSEA 04/26/24
alfuzosin 10 mg tablet,extended release 24 hr 10 mg PO DAILY 09/21/24
gabapentin 300 mg capsule 300 mg PO QID 09/21/24
omeprazole 20 mg tablet,delayed release 20 mg PO DAILY 09/21/24
oxycodone 5 mg tablet 5 mg PO Q4H PRN pain 09/21/24
hyoscyamine sulfate 0.125 mg sublingual tablet 0.25 mg (2 x 0.125 mg) PO Q4HPRN PRN abdominal cramping #60 tabs 09/23/24
polyethylene glycol 3350 17 gram oral powder packet (HealthyLax) 17 g PO DAILY #0 ea 09/23/24
Home Medication Changes
Pending Results: No
Total time spent discharging patient (in min): 41
--- NOTE | 2024-09-23 10:44 | CM ---
Patient stable for d/c today per hospitalist.
CM spoke w/ patient bedside, agreeable to d/c. Spoke w/ patient's daughter, Anne, who shared she will pick patient up at 11:30 as she works from home and is not far. CM discussed PT rec of home PT or OP, patient declined need at this time
IMM verbally reviewed, copy given to patient, copy placed in chart
Plan: Home; no needs
[2024-09-23] MEDS: NSS IV (10:51)
[2024-09-23 11:57] VITALS: BP 127/63
== END 2024-09-23 12:43 | disposition home or self-care (01) | DRG 375 ==
LOC: 4 EAST ACU 01:55
PROVIDERS: ADMITTING PHYSICIAN Hospitalist; ATTENDING PHYSICIAN Internal Medicine; EMERGENCY PHYSICIAN Emergency Medicine; FAMILY PHYSICIAN Internal Medicine; OTHER PHYSICIAN Surgery
DX: C78.6 Secondary malignant neoplasm of retroperitoneum and peritoneum (principal); C25.2 Malignant neoplasm of tail of pancreas; F11.20 Opioid dependence, uncomplicated; R64 Cachexia; Z68.1 Body mass index [BMI] 19.9 or less, adult; N40.0 Benign prostatic hyperplasia without lower urinary tract symptoms; E11.40 Type 2 diabetes mellitus with diabetic neuropathy, unspecified; E03.9 Hypothyroidism, unspecified; G89.3 Neoplasm related pain (acute) (chronic); Z79.890 Hormone replacement therapy; E78.00 Pure hypercholesterolemia, unspecified; I10 Essential (primary) hypertension; Z79.84 Long term (current) use of oral hypoglycemic drugs; Z90.81 Acquired absence of spleen; Z79.899 Other long term (current) drug therapy; Z90.411 Acquired partial absence of pancreas
CPT/HCPCS: 74177; 74250; 80048; 80053; 82962; 83036; 85025; 85027; 96374; 97162; 97166; 97530; 99285; Q9967